=== PATIENT | male | born 1935 ===

== ENCOUNTER 2017-01-09 12:58 | Inpatient (IN) | payer MEDICARE, MEDICAID ==
[2017-01-09 12:59] VITALS: BMI 23.8
[2017-01-09 13:27] LABS: BASO # 0.1 K/uL (0.0-0.2); BASO % 0.7 % (0.0-2.0); EOS # 0.9 K/uL (0.0-0.7); EOS % 10.7 % (0.0-4.0); HEMATOCRIT 35.6 % (35.0-51.0); LYMPH # 1.9 K/uL (1.0-4.3); LYMPH % 22.2 % (20.0-40.0); MEAN CORPUSCULAR HEMOGLOBIN 26.3 pg (27.0-31.0); MEAN CORPUSCULAR HGB CONC 32.1 g/dL (33.0-37.0); MEAN PLATELET VOLUME 8.9 fL (7.2-11.7); MONO # 0.8 K/uL (0.0-0.8); MONO % 9.2 % (0.0-10.0); RED CELL DISTRIBUTION WIDTH 16.4 % (11.5-14.5); WHITE BLOOD COUNT 8.6 K/uL (4.8-10.8)
[2017-01-09 13:46] LABS: CHLORIDE 100 mmol/L (98-107); POTASSIUM 4.3 mmol/L (3.6-5.2); SODIUM 138 mmol/L (132-148)
[2017-01-09 13:48] LABS: ALB/GLOB RATIO 1.1 (1.0-2.1); ALKALINE PHOSPHATASE 96 U/L (38-126); AMYLASE 134 U/L (30-110); AST/SGOT 24 U/L (17-59); BILIRUBIN,TOTAL 0.6 mg/dL (0.2-1.3); BLOOD UREA NITROGEN 13 mg/dL (9-20); CARBON DIOXIDE 23 mmol/L (22-30); GFR AFRICAN-AMERICAN > 60; TOTAL PROTEIN 7.4 g/dL (6.3-8.3)
[2017-01-09 13:49] LABS: ALT/SGPT 37 U/L (21-72); CALCIUM 8.4 mg/dl (8.6-10.4); GLUCOSE,RANDOM 91 mg/dL (75-110)
--- NOTE | 2017-01-09 13:50 | C.PDOC ---
History Of Present Illness 81 y/o male, with PMHx of CVA, HTN, Hypercholesterolemia, is brought to the ED by EMS for evaluation of vague epigastric abdominal pain. HPI is limited at this time. Patient is a poor historian. No n/v/d, fever, chills, headache, weakness, numbness, or any other physical complaints at this time. Time Seen by Provider: 01/09/17 13:46 Chief Complaint (Nursing): Abdominal Pain History Per: Patient History/Exam Limitations: no limitations Onset/Duration Of Symptoms: Days Current Symptoms Are (Timing): Still Present Location Of Pain/Discomfort: Epigastric Radiation Of Pain To:: None Quality Of Discomfort: "Pain" Associated Symptoms: denies: Fever, Chills, Nausea, Vomiting, Diarrhea, Loss Of Appetite, Back Pain, Chest Pain, Constipation, Urinary Symptoms Exacerbating Factors: None Alleviating Factors: None Recent travel outside of the [place]: No Additional History Per: Patient Past Medical History Reviewed: Historical Data, Nursing Documentation, Vital Signs Vital Signs: Last Vital Signs Temp 97.5 F L 01/09/17 13:08 Pulse 69 01/09/17 16:12 Resp 20 01/09/17 16:12 BP 150/76 01/09/17 16:12 Pulse Ox 98 01/09/17 16:12 - Medical History PMH: Arthritis, CVA (Ischemic, 2 months ago.), Depression, HTN, Hypercholesterolemia, Hyperlipidemia, Seizures Denies: Chronic Kidney Disease Family History: States: No Known Family Hx - Social History Hx Alcohol Use: No Hx Substance Use: No - Immunization History Hx Tetanus Toxoid Vaccination: No Hx Influenza Vaccination: No Hx Pneumococcal Vaccination: No Review Of Systems Except As Marked, All Systems Reviewed And Found Negative. Constitutional: Negative for: Fever, Chills Cardiovascular: Negative for: Chest Pain, Palpitations Respiratory: Negative for: Cough, Shortness of Breath Gastrointestinal: Positive for: Abdominal Pain. Negative for: Nausea, Vomiting , Diarrhea, Constipation Genitourinary: Negative for: Dysuria, Frequency, Hematuria Skin: Negative for: Rash, Bruising Neurological: Negative for: Weakness, Numbness, Headache, Dizziness Physical Exam - Physical Exam Appears: Non-toxic, No Acute Distress Skin: Normal Color, Warm, Dry Head: Atraumatic, Normacephalic Eye(s): bilateral: EOMI, Other (pinpoint pupils) Oral Mucosa: Moist Neck: Normal ROM, Supple Cardiovascular: Rhythm Regular, No Murmur Respiratory: Normal Breath Sounds, No Rales, No Rhonchi, No Wheezing Gastrointestinal/Abdominal: Soft, No Tenderness, Distention, No Guarding, No Rebound, Other (obese abdomen) Extremity: Normal ROM Neurological/Psych: Oriented x3 (awake, alert), Normal Speech ED Course And Treatment - Laboratory Results Result Diagrams: 01/09/17 13:22 01/09/17 13:22 Lab Interpretation: Abnormal (lipase 420, amylase 134 H) ECG: Interpreted By Me ECG Rhythm: Sinus Rhythm ECG Interpretation: Normal Rate From EC O2 Sat by Pulse Oximetry: 100 (RA) Pulse Ox Interpretation: Normal - Radiology CXR: Interpreted by Me CXR Interpretation: Yes: No Acute Disease - Other Rad abd x 2 X-Ray: Interpreted by Me (normal stool/gas pattern) CT Abd/pelvis X-Ray: Read By Radiologist (no acute findings of pancreatitis on CT) Reevaluation Time: 16:33 Reassessment Condition: Improved (remains aphasic, though comfortable) - Physician Consult Information Outcome Of Conversation: 1630: d/w Dr. Cisneros- coverst pt's for Dr. Felicitas Kaye, ok to Obs, asks to consult Dr. Monk Medical Decision Making Medical Decision Making: mild pancreatitis of ? etiology- Unclear if h/o DM or hypertriglyceridemia conservative treatment and obs Disposition Doctor Will See Patient In The: Hospital Counseled Patient/Family Regarding: Studies Performed, Diagnosis - Disposition Disposition: HOSPITALIZED Disposition Time: 16:36 Condition: GOOD Forms: [facility] (Hungarian) - Clinical Impression Clinical Impression: Pancreatitis - Scribe Statement The provider has reviewed the documentation as recorded by the Scribe Vdiya Cam All medical record entries made by the Scribe were at my direction and personally dictated by me. I have reviewed the chart and agree that the record accurately reflects my personal performance of the history, physical exam, medical decision making, and the department course for this patient. I have also personally directed, reviewed, and agree with the discharge instructions and disposition.
[2017-01-09 14:34] VITALS: RESP 20
[2017-01-09 15:29] LABS: URINE BILIRUBIN NEGATIVE (NEGATIVE); URINE BLOOD NEGATIVE (NEGATIVE); URINE COLOR Straw (YELLOW); URINE GLUCOSE (UA) NORMAL (Normal); URINE KETONE NEGATIVE (NEGATIVE); URINE LEUKOCYTE ESTERASE NEG Leu/uL (Negative); URINE PROTEIN NEGATIVE (NEGATIVE); URINE UROBILINOGEN NORMAL mg/dL (0.2-1.0)
[2017-01-09] MEDS ORDERED: Iodixanol 320 MG/ML 100 ML BOTTLE IV ONE (15:38)
--- NOTE | 2017-01-09 16:24 | CT ---
PROCEDURE: CT Abdomen and Pelvis with contrast HISTORY: elev amylase/lipase, ? pancreatisis COMPARISON: None. TECHNIQUE: Contrast dose: 95 cc of Visipaque 320. Axial and reformatted coronal and sagittal CT images of the abdomen and pelvis were obtained after IV contrast administration. Radiation dose: Total exam DLP = 455.06 mGy-cm. This CT exam was performed using one or more of the following dose reduction techniques: Automated exposure control, adjustment of the mA and/or kV according to patient size, and/or use of iterative reconstruction technique. FINDINGS: LOWER THORAX: Unremarkable. LIVER: Mild diffuse low-attenuation of the liver suggestive of hepatic steatosis. The portal vein is patent. GALLBLADDER AND BILE DUCTS: Gallstone without CT evidence of acute cholecystitis. PANCREAS: Unremarkable. No gross lesion or ductal dilatation. No CT evidence of acute pancreatitis. SPLEEN: Unremarkable. ADRENALS: Unremarkable. No mass. KIDNEYS AND URETERS: Unremarkable. No hydronephrosis. No solid mass. VASCULATURE: Unremarkable. No aortic aneurysm. BOWEL: Unremarkable. No obstruction. No gross mural thickening. APPENDIX: No evidence of appendicitis. PERITONEUM: Unremarkable. No free fluid. No free air. LYMPH NODES: Unremarkable. No enlarged lymph nodes. BLADDER: Moderate urinary bladder wall thickening at the right anterior aspect of the bladder is noted. REPRODUCTIVE: Unremarkable. BONES: No acute fracture. OTHER FINDINGS: None. IMPRESSION: No CT evidence of pancreatitis. Gallstones without evidence of acute cholecystitis. Mild hepatic steatosis. Bladder wall thickening noted at the anterior right aspect of the bladder. Further assessment is recommended to exclude infiltrative bladder neoplasm.
--- NOTE | 2017-01-09 17:21 | RAD ---
PROCEDURE: Radiographs of the chest and abdomen (obstructive series) HISTORY: epigastric COMPARISON: CT abdomen and pelvis contrast performed 01/09/17 TECHNIQUE: AP radiograph of the chest, with upright and supine radiographs of the abdomen. FINDINGS: CHEST: Heart size appears top normal. No focal consolidation, significant pleural effusion, or definite pneumothorax identified.Please note that chest x-ray has limited sensitivity for the detection of pulmonary masses. ABDOMEN AND PELVIS: Nonobstructive bowel gas pattern. No definite free air. Degenerative changes of the spine. IMPRESSION: No acute findings.
[2017-01-09] MEDS: Sodium Chloride 0.45% 1,000 ML IV SCH (19:46)
[2017-01-09] MEDS: (Novolin R) Insulin Human Regular 100 units/ml vial SC SCH (23:47)
--- NOTE | 2017-01-09 23:59 | CP.PCM.HP ---
History of Present Illness - History of Present Illness History of Present Illness: COMPREHENSIVE HISTORY & PHYSICAL EXAM HPI PT. WAS BROUGHT TO ER WITH VAGUE COMPLAINTS OF GEN. ABD PAIN. W/U IN ER SHOWED PANCREATITIS WITH NEGATIVE IMAGINING . PT ALSO HAS N/V FOR 2 DAYS PAST HIST. HTN/CVA/TIA/NEG IV LEXISCAN MYOVIEW PERSONAL HIST: Smoking. N Alcohol. N Allergy N Travel_- . FAMILY HIST : ROS : Constitutional: Negative for weight change, chills, night sweats, fatigue and usage of assist device. Eyes: Negative for redness, swelling, itching, discharge, vision changes, blurry vision, double vision, glaucoma, cataracts, Ears: Negative for hearing loss, ringing, , tinnitus, vertigo Nose: Negative for rhinorrhea, stuffiness, sniffing, itching, postnasal drip, discoloration, nasal congestion and epistaxis. Throat: Negative for throat clearing, sore throat, hoarseness, difficulty swallowing and difficulty speaking. Respiratory: Negative for cough, , sputum production, chest tightness, wheezing, pleuritic chest pain ,daytime somnolence, chronic cough, hemoptysis, snoring at night, Cardiovascular: Negative for chest pain, palpitations, orthopnea, PND, Edema of legs, leg cramps, angina, claudication, , irregular heartbeat, Neurology: Negative for irritability, muscle weakness, numbness and tingling, seizures, tremors, migraines, slurred speech, syncope, memory loss, mood changes , recurrent headaches Gastrointestinal: N/V A/W CONSTIPATION AND GEN ABD PAIN Genitourinary: Negative for frequent urination, hematuria, discharge, incontinence, urinary retention, frequent UTI, Psychiatric: Negative for depression, anxiety/panic, suicidal tendencies, Musculoskeletal: Negative for swollen joints, back pain, , neck pain, morning stiffness of joints, . Skin: Negative for rash, ulcers, itching, dry skin and pigmented lesions. P/E: Constitutional: Appears stated age and in no apparent distress. Head: Normocephalic. Ears: External ear canals patent without inflammation. Tympanic membranes intact with normal light reflex and landmark. Eyes: Pupils are central, bilaterally equal, symmetrical and reacts to light with normal movements and no icterus or pallor. Nose: External nares are patent. Mucosa is pink Mouth-Throat: Good general appearance and condition. No post-pharyngeal/oropharyngeal erythema and tonsillar hypertrophy. Good dental hygiene. Neck-Lymphatic: Neck is supple with normal ROM, no thyromegaly, lymph nodes or masses. JVD is normal with no carotid bruit. Lungs: Clear to percussion and auscultation with bilateral normal air entry. Cardiovascular: S1 and S2 are normal with no murmurs, gallops and rub. GI Exam: No hepatomegaly. Abdomen is soft and tender. No Organomegaly , masses or hernias are evident and bowel sounds are normal and active. Neurology: Higher function and all cranial nerves intact, with no gross motor or sensory deficit. Superficial and deep reflexes are normal with downwards planters. No cerebellar deficit with normal gait. Musculoskeletal: No tender spots with normal curvature of the spine with no swelling or restricted ROM of the small and large joints. Extremities: Homans sign absent. Intact pulses with no pitting edema, calf tenderness or skin color changes. Skin: No rash, eruptions or abnormal skin pigmentation LAB/RADIOLOGY: ASSESMENT : ACUTE PANCREATIS HTN TIA/CVA PLAN: SEE ORDERS Present on Admission - Present on Admission Any Indicators Present on Admission: No Past Patient History - Past Medical History & Family History Past Medical History?: Yes - Past Social History Smoking Status: Never Smoked - CARDIAC Hx Hypercholesterolemia: Yes Hx Hypertension: Yes Other/Comment: CVA 2 months ago - PULMONARY Hx Respiratory Disorders: No - NEUROLOGICAL Hx Seizures: Yes - HEENT Hx HEENT Problems: No - RENAL Hx Chronic Kidney Disease: No - ENDOCRINE/METABOLIC Hx Endocrine Disorders: Yes Hx Diabetes Mellitus Type 1: Yes - HEMATOLOGICAL/ONCOLOGICAL Hx Blood Disorders: No - INTEGUMENTARY Other/Comment: Old 50-60 Yrs Old LFA Small Area Soft Skin. - MUSCULOSKELETAL/RHEUMATOLOGICAL Hx Arthritis: Yes Hx Falls: Yes - GASTROINTESTINAL Hx Gastrointestinal Disorders: No - GENITOURINARY/GYNECOLOGICAL Hx Urinary Tract Infection: Yes - PSYCHIATRIC Hx Depression: Yes Hx Substance Use: No - SURGICAL HISTORY Hx Surgeries: Yes Other/Comment: Vasectomy 1968 - ANESTHESIA Hx Anesthesia: Yes Hx Anesthesia Reactions: No Hx Malignant Hyperthermia: No Has any member of the family had a problem w/ anesthesia?: No Meds Allergies/Adverse Reactions: Allergies Allergy/AdvReac Type Severity Reaction Status Date / Time camphor Allergy Verified 01/08/16 14:20 menthol Allergy Verified 01/08/16 14:20 Results - Vital Signs Recent Vital Signs: Last Vital Signs Temp 97.9 F 01/09/17 19:00 Pulse 69 01/09/17 22:35 Resp 20 01/09/17 19:00 BP 176/81 H 01/09/17 22:35 Pulse Ox 99 01/09/17 19:00 - Labs Result Diagrams: 01/10/17 08:29 01/10/17 08:29 Labs: Laboratory Results - last 24 hr 01/09/17 22:44 POC Glucose (mg/dL) 123 H
[2017-01-10] MEDS: Sodium Chloride 0.45% 1,000 ML IV SCH ×3 (05:06→21:07)
[2017-01-10] MEDS: (Novolin R) Insulin Human Regular 100 units/ml vial SC SCH ×3 (08:08→17:14)
[2017-01-10 08:43] LABS: HEMATOCRIT 37.1 % (35.0-51.0); MEAN CELL VOLUME 81.5 fL (80.0-94.0); MEAN CORPUSCULAR HEMOGLOBIN 26.6 pg (27.0-31.0); MEAN CORPUSCULAR HGB CONC 32.7 g/dL (33.0-37.0); MEAN PLATELET VOLUME 9.3 fL (7.2-11.7); RED CELL DISTRIBUTION WIDTH 16.2 % (11.5-14.5); WHITE BLOOD COUNT 7.8 K/uL (4.8-10.8)
[2017-01-10 09:01] LABS: CHLORIDE 102 mmol/L (98-107); SODIUM 138 mmol/L (132-148)
[2017-01-10 09:02] LABS: POTASSIUM 4.1 mmol/L (3.6-5.2)
[2017-01-10 09:04] LABS: AMYLASE 111 U/L (30-110); CARBON DIOXIDE 26 mmol/L (22-30); TOTAL PROTEIN 7.5 g/dL (6.3-8.3)
[2017-01-10 09:05] LABS: ALKALINE PHOSPHATASE 105 U/L (38-126); ALT/SGPT 40 U/L (21-72); AST/SGOT 28 U/L (17-59); BILIRUBIN,TOTAL 0.7 mg/dL (0.2-1.3); BLOOD UREA NITROGEN 12 mg/dL (9-20); CALCIUM 8.8 mg/dl (8.6-10.4); GFR AFRICAN-AMERICAN > 60; GLUCOSE,RANDOM 119 mg/dL (75-110)
--- NOTE | 2017-01-10 09:21 | CP.PCM.CON ---
<Chasity Cam - Last Filed: 01/10/17 10:48> History of Present Illness - History of Present Illness History of Present Illness: PGY4 GI Initial Consult Note Godfrey Cam is a 81M w/ hx of CVA, early dementia, HTN who presented to the ED with complaints of vague abd pain. Pt had an abd CT and did not reveal anything sig, other than some retained stool in the colon. Pt had an elevated lipase and amylase on admission and so was admitted for suspected pancreatitis. Pt denies nay epigastric pain. His pain was located in [place] B/L. He described his pain as crampy. Denies any aggravating or alleviating factors. Stated his pain was intermittent and was non-radiating. He graded it an 8 out of 10. He states that his last BM was 2-3 days go. He denies any melena, BRBPR, nausea, vomiting or hematemsesis. Pt states that his pain improved overnight. Currently denies nay pain. He states that it was likely "gas." PMHx: Arthritis, CVA (Ischemic, 2 months ago.), Depression, Hypertension, Hypercholesterolemia, Hyperlipidemia, and Seizures PSHx: Denies Social: denies etoh, smoking or recreational drug use Family hx; denies any hx of colon or other ca Endo: states that he had a colonoscopy a few years ago, but cannot recall the results or the physcian performing the procedure Past Patient History - Past Medical History & Family History Past Medical History?: Yes - Past Social History Smoking Status: Never Smoked - CARDIAC Hx Hypercholesterolemia: Yes Hx Hypertension: Yes Other/Comment: CVA 2 months ago - PULMONARY Hx Respiratory Disorders: No - NEUROLOGICAL Hx Seizures: Yes - HEENT Hx HEENT Problems: No - RENAL Hx Chronic Kidney Disease: No - ENDOCRINE/METABOLIC Hx Endocrine Disorders: Yes Hx Diabetes Mellitus Type 1: Yes - HEMATOLOGICAL/ONCOLOGICAL Hx Blood Disorders: No - INTEGUMENTARY Other/Comment: Old 50-60 Yrs Old LFA Small Area Soft Skin. - MUSCULOSKELETAL/RHEUMATOLOGICAL Hx Arthritis: Yes Hx Falls: Yes - GASTROINTESTINAL Hx Gastrointestinal Disorders: No - GENITOURINARY/GYNECOLOGICAL Hx Urinary Tract Infection: Yes - PSYCHIATRIC Hx Depression: Yes Hx Substance Use: No - SURGICAL HISTORY Hx Surgeries: Yes Other/Comment: Vasectomy 1968 - ANESTHESIA Hx Anesthesia: Yes Hx Anesthesia Reactions: No Hx Malignant Hyperthermia: No Has any member of the family had a problem w/ anesthesia?: No Meds Allergies/Adverse Reactions: Allergies Allergy/AdvReac Type Severity Reaction Status Date / Time camphor Allergy Verified 01/08/16 14:20 menthol Allergy Verified 01/08/16 14:20 - Medications Medications: Current Medications Amlodipine Besylate (Norvasc) 10 mg PO DAILY [facility] Last Admin: 01/09/17 19:35 Dose: 10 mg Heparin Sodium (Porcine) (Heparin) 5,000 units SC Q12H [facility] Last Admin: 01/09/17 22:38 Dose: 5,000 units Sodium Chloride (Sodium Chloride 0.45%) 1,000 mls @ 110 mls/hr IV .Q9H6M [facility] Last Admin: 01/10/17 05:06 Dose: 110 mls/hr Insulin Human Regular (Novolin R) 0 unit SC ACHS [facility] PRN Reason: Protocol Last Admin: 01/10/17 08:08 Dose: Not Given Physical Exam - Constitutional Appears: Well, No Acute Distress - Head Exam Head Exam: ATRAUMATIC, NORMAL INSPECTION, NORMOCEPHALIC - Eye Exam Eye Exam: Normal appearance - ENT Exam ENT Exam: Mucous Membranes Moist, Normal Exam - Neck Exam Neck exam: Positive for: Normal Inspection - Respiratory Exam Respiratory Exam: Clear to Auscultation Bilateral, NORMAL BREATHING PATTERN. absent: Rales, Rhonchi, Wheezes - Cardiovascular Exam Cardiovascular Exam: REGULAR RHYTHM, +S1, +S2 - GI/Abdominal Exam GI & Abdominal Exam: Normal Bowel Sounds, Soft. absent: Distended, Firm, Guarding, Organomegaly, Pulsatile Mass, Rebound, Rigid - Extremities Exam Extremities exam: Positive for: normal inspection. Negative for: joint swelling , pedal edema - Neurological Exam Neurological exam: Alert, CN II-XII Intact Additional comments: only oriented to persona nd place, but not time - Psychiatric Exam Psychiatric exam: Normal Affect, Normal Mood - Skin Skin Exam: Dry, Intact, Normal Color, Warm Results - Vital Signs Recent Vital Signs: Last Vital Signs Temp 97.7 F 01/10/17 08:00 Pulse 65 01/10/17 08:00 Resp 20 01/10/17 08:00 BP 135/74 01/10/17 08:00 Pulse Ox 98 01/10/17 08:00 - Labs Result Diagrams: 01/10/17 08:29 08/09/17 08:29 Labs: Laboratory Results - last 24 hr 01/09/17 01/10/17 01/10/17 22:44 07:53 08:29 WBC 7.8 RBC 4.55 Hgb 12.1 Hct 37.1 MCV 81.5 MCH 26.6 L MCHC 32.7 L RDW 16.2 H Plt Count 230 MPV 9.3 Sodium Potassium Chloride Carbon Dioxide Anion Gap BUN Creatinine Est GFR ( Amer) Est GFR (Non-Af Amer) POC Glucose (mg/dL) 123 H 105 Random Glucose Calcium Total Bilirubin AST ALT Alkaline Phosphatase Total Protein Albumin Globulin Albumin/Globulin Ratio Amylase Lipase 01/10/17 08:29 WBC RBC Hgb Hct MCV MCH MCHC RDW Plt Count MPV Sodium 138 Potassium 4.1 Chloride 102 Carbon Dioxide 26 Anion Gap 15 BUN 12 Creatinine 0.9 Est GFR ( Amer) > 60 Est GFR (Non-Af Amer) > 60 POC Glucose (mg/dL) Random Glucose 119 H Calcium 8.8 Total Bilirubin 0.7 AST 28 ALT 40 Alkaline Phosphatase 105 Total Protein 7.5 Albumin 3.7 Globulin 3.7 Albumin/Globulin Ratio 1.0 Amylase 111 H Lipase 315 H Assessment & Plan - Assessment and Plan (Free Text) Assessment: This a 81M w/ hx of CVA, HTN, HL who presented with abd pain. Etiology is likely constipation vs dyspepsia 1. Constipation 2. Bloating 3. hx of recent CVA Plan: -start miralax BID -continue supportive care -Pt unlikely to have pancreatitis based on imaging and clinic findings -Would advance diet as tolerated -minimize narcotics -No acute GI intervention at this time -Reviewed CT abd by myself and with Dr. Whiting, no acute finding other than mild/ moderate fecal retention in colon D/W Dr. Whiting <Kd Whiting - Last Filed: 01/10/17 13:00> Meds - Medications Medications: Current Medications Amlodipine Besylate (Norvasc) 10 mg PO DAILY [facility] Last Admin: 01/10/17 10:16 Dose: 10 mg Heparin Sodium (Porcine) (Heparin) 5,000 units SC Q12H [facility] Last Admin: 01/10/17 10:16 Dose: 5,000 units Sodium Chloride (Sodium Chloride 0.45%) 1,000 mls @ 110 mls/hr IV .Q9H6M [facility] Last Admin: 01/10/17 05:06 Dose: 110 mls/hr Insulin Human Regular (Novolin R) 0 unit SC ACHS [facility] PRN Reason: Protocol Last Admin: 01/10/17 11:51 Dose: 2 unit Polyethylene Glycol (Miralax) 17 gm PO DAILY [facility] Last Admin: 01/10/17 11:51 Dose: 17 gm Sennosides (Senokot Tab) 8.6 mg PO DAILY [facility] Last Admin: 01/10/17 11:53 Dose: 8.6 mg Results - Vital Signs Recent Vital Signs: Last Vital Signs Temp 97.7 F 01/10/17 08:00 Pulse 65 01/10/17 08:00 Resp 20 01/10/17 08:00 BP 135/74 01/10/17 08:00 Pulse Ox 98 01/10/17 08:00 - Labs Result Diagrams: 01/10/17 08:29 01/10/17 08:29 Labs: Laboratory Results - last 24 hr 01/09/17 01/10/17 01/10/17 22:44 07:53 08:29 WBC 7.8 RBC 4.55 Hgb 12.1 Hct 37.1 MCV 81.5 MCH 26.6 L MCHC 32.7 L RDW 16.2 H Plt Count 230 MPV 9.3 Sodium Potassium Chloride Carbon Dioxide Anion Gap BUN Creatinine Est GFR ( Amer) Est GFR (Non-Af Amer) POC Glucose (mg/dL) 123 H 105 Random Glucose Calcium Total Bilirubin AST ALT Alkaline Phosphatase Total Protein Albumin Globulin Albumin/Globulin Ratio Amylase Lipase 01/10/17 01/10/17 08:29 11:09 WBC RBC Hgb Hct MCV MCH MCHC RDW Plt Count MPV Sodium 138 Potassium 4.1 Chloride 102 Carbon Dioxide 26 Anion Gap 15 BUN 12 Creatinine 0.9 Est GFR ( Amer) > 60 Est GFR (Non-Af Amer) > 60 POC Glucose (mg/dL) 159 H Random Glucose 119 H Calcium 8.8 Total Bilirubin 0.7 AST 28 ALT 40 Alkaline Phosphatase 105 Total Protein 7.5 Albumin 3.7 Globulin 3.7 Albumin/Globulin Ratio 1.0 Amylase 111 H Lipase 315 H Attending/Attestation - Attestation I have personally seen and examined this patient.: Yes I have fully participated in the care of the patient.: Yes I have reviewed all pertinent clinical information: Yes Notes (Text): 01/10/17 12:59 81 year old male admitted with abdominal pain, bloating and constipatoin, improved. 1. Abdominal pain 2. Bloating 3. Constipation Plan: -recommend bowel regimen with miralax -symptoms improved -ct unremarkable, reviewed -no evidence of pancreatitis on imaging -mildly elevated lipase not consistent with pancreatitis -diet as tolerated -will sign off
[2017-01-10] MEDS: POLYETHYLENE GLYCOL 3350 17 GM/Dose PACKET PO SCH (11:51)
--- NOTE | 2017-01-10 13:48 | CP.PCM.PN ---
Subjective - Date & Time of Evaluation Date of Evaluation: 01/10/17 Time of Evaluation: 13:46 - Subjective Subjective: . CHIEF COMPLAINTS TODAY : ABD PAIN , LESS ROS. HEENT : N. Resp : No cough, wheezing ,pleuritic CP ,or hemoptysis Cardio : No anginal CP, PND, orthopnea, palpitation GI : POS abd.pain, n/v ,diarrhea NO GI bleeding . [employer] : No headache, vertigo, focal deficit. Musculoskel : No joint swelling , Derm : No rash Psych : Normal affect. Ext : No swelling ,calf pain PE. Pt. is alert awake in no distress. V.S As noted in the chart Head ,ear nose,throat and eyes : Normal. Neck : Supple with normal carotids. Lungs: Clear air entry. Heart : S1 & S2 normal with S4. No murmur. Abd : Soft non tender with normal bowel sounds. Neuro : Moves all ext. with no localized deficit. Ext : No edema with intact pulses.Non tender calves Derm : No rashes or decubitus ulcer. LABS/RADIOLOGY: ASSESSMENT/PLAN : GI EVAL NOTED CHECK LABS Objective - Vital Signs/Intake and Output Vital Signs (last 24 hours): Temp Pulse Resp BP Pulse Ox 97.7 F 65 20 135/74 98 01/10/17 08:00 01/10/17 08:00 01/10/17 08:00 01/10/17 08:00 01/10/17 08:00 Intake and Output: 01/10/17 01/10/17 11:59 23:59 Intake Total 930 Output Total 1000 Balance -70 - Medications Medications: Current Medications Amlodipine Besylate (Norvasc) 10 mg PO DAILY [facility] Last Admin: 01/10/17 10:16 Dose: 10 mg Heparin Sodium (Porcine) (Heparin) 5,000 units SC Q12H [facility] Last Admin: 01/10/17 10:16 Dose: 5,000 units Sodium Chloride (Sodium Chloride 0.45%) 1,000 mls @ 110 mls/hr IV .Q9H6M [facility] Last Admin: 01/10/17 13:32 Dose: Not Given Insulin Human Regular (Novolin R) 0 unit SC ACHS [facility] PRN Reason: Protocol Last Admin: 01/10/17 11:51 Dose: 2 unit Polyethylene Glycol (Miralax) 17 gm PO DAILY [facility] Last Admin: 01/10/17 11:51 Dose: 17 gm Sennosides (Senokot Tab) 8.6 mg PO DAILY [facility] Last Admin: 01/10/17 11:53 Dose: 8.6 mg - Labs Labs: 01/10/17 08:29 01/10/17 08:29
--- NOTE | 2017-01-10 19:23 | CARD ---
APPROVED REPORT EKG Measurement Heart [id number] [place] [id number] [id number] <Conclusion> Normal sinus rhythm Normal ECG
[2017-01-11] MEDS: Sodium Chloride 0.45% 1,000 ML IV SCH ×3 (06:24→17:20)
[2017-01-11 07:28] LABS: BASO % 0.6 % (0.0-2.0); EOS # 0.8 K/uL (0.0-0.7); EOS % 11.7 % (0.0-4.0); HEMATOCRIT 37.6 % (35.0-51.0); LYMPH # 1.7 K/uL (1.0-4.3); LYMPH % 23.6 % (20.0-40.0); MEAN CELL VOLUME 81.4 fL (80.0-94.0); MEAN CORPUSCULAR HEMOGLOBIN 27.1 pg (27.0-31.0); MEAN CORPUSCULAR HGB CONC 33.4 g/dL (33.0-37.0); MEAN PLATELET VOLUME 9.1 fL (7.2-11.7); MONO # 0.5 K/uL (0.0-0.8); MONO % 7.7 % (0.0-10.0); RED CELL DISTRIBUTION WIDTH 15.8 % (11.5-14.5)
[2017-01-11] MEDS: (Novolin R) Insulin Human Regular 100 units/ml vial SC SCH ×4 (07:30→22:00)
[2017-01-11 08:22] LABS: ALKALINE PHOSPHATASE 109 U/L (38-126); ALT/SGPT 33 U/L (21-72); AST/SGOT 30 U/L (17-59); BILIRUBIN,TOTAL 0.7 mg/dL (0.2-1.3); BLOOD UREA NITROGEN 11 mg/dL (9-20); CALCIUM 8.7 mg/dl (8.6-10.4); CARBON DIOXIDE 25 mmol/L (22-30); CHLORIDE 102 mmol/L (98-107); GFR AFRICAN-AMERICAN > 60; GLUCOSE,RANDOM 132 mg/dL (75-110); POTASSIUM 4.2 mmol/L (3.6-5.2); SODIUM 141 mmol/L (132-148); TOTAL PROTEIN 7.4 g/dL (6.3-8.3)
[2017-01-11] MEDS: POLYETHYLENE GLYCOL 3350 17 GM/Dose PACKET PO SCH (09:45)
--- NOTE | 2017-01-11 13:48 | CP.PCM.PN ---
Subjective - Date & Time of Evaluation Date of Evaluation: 01/11/17 Time of Evaluation: 13:48 - Subjective Subjective: CHIEF COMPLAINTS TODAY : ABD PAIN , LESS ROS. HEENT : N. Resp : No cough, wheezing ,pleuritic CP ,or hemoptysis Cardio : No anginal CP, PND, orthopnea, palpitation GI : POS abd.pain, n/v ,diarrhea NO GI bleeding . 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 Musculoskel : No joint swelling , Derm : No rash Psych : Normal affect. Ext : No swelling ,calf pain PE. Pt. is alert awake in no distress. V.S As noted in the chart Head ,ear nose,throat and eyes : Normal. Neck : Supple with normal carotids. Lungs: Clear air entry. Heart : S1 & S2 normal with S4. No murmur. Abd : Soft non tender with normal bowel sounds. Neuro : Moves all ext. with no localized deficit. Ext : No edema with intact pulses.Non tender calves Derm : No rashes or decubitus ulcer. LABS/RADIOLOGY: LIPASE STILL ELEVATED ASSESSMENT/PLAN : GI EVAL NOTED LIUDMILA Objective - Vital Signs/Intake and Output Vital Signs (last 24 hours): Temp Pulse Resp BP Pulse Ox 98.7 F 78 20 160/101 H 99 01/11/17 08:41 01/11/17 12:11 01/11/17 08:41 01/11/17 12:11 01/11/17 08:41 Intake and Output: 01/11/17 01/11/17 11:59 23:59 Intake Total 1120 Output Total 1200 Balance -80 - Medications Medications: Current Medications Amlodipine Besylate (Norvasc) 10 mg PO DAILY [facility] Last Admin: 01/11/17 10:22 Dose: 10 mg Heparin Sodium (Porcine) (Heparin) 5,000 units SC Q12H [facility] Last Admin: 01/11/17 09:45 Dose: 5,000 units Sodium Chloride (Sodium Chloride 0.45%) 1,000 mls @ 110 mls/hr IV .Q9H6M [facility] Last Admin: 01/11/17 07:40 Dose: 110 mls/hr Insulin Human Regular (Novolin R) 0 unit SC ACHS [facility] PRN Reason: Protocol Last Admin: 01/11/17 11:30 Dose: 2 unit Polyethylene Glycol (Miralax) 17 gm PO DAILY [facility] Last Admin: 01/11/17 09:45 Dose: 17 gm Sennosides (Senokot Tab) 8.6 mg PO DAILY [facility] Last Admin: 01/11/17 09:48 Dose: 8.6 mg - Labs Labs: 01/11/17 07:14 01/11/17 07:14
[2017-01-12] MEDS: Sodium Chloride 0.45% 1,000 ML IV SCH ×6 (03:11→21:20)
[2017-01-12] MEDS: (Novolin R) Insulin Human Regular 100 units/ml vial SC SCH ×4 (07:46→21:19)
[2017-01-12] MEDS: POLYETHYLENE GLYCOL 3350 17 GM/Dose PACKET PO SCH (09:29)
--- NOTE | 2017-01-12 13:22 | CP.PCM.PN ---
Subjective - Date & Time of Evaluation Date of Evaluation: 01/12/17 Time of Evaluation: 13:21 - Subjective Subjective: CHIEF COMPLAINTS TODAY : PT. FAILED PT , UNSTEADY ON GAIT ROS. HEENT : N. Resp : No cough, wheezing ,pleuritic CP ,or hemoptysis Cardio : No anginal CP, PND, orthopnea, palpitation GI : POS abd.pain, n/v ,diarrhea NO GI bleeding . 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 Musculoskel : No joint swelling , Derm : No rash Psych : Normal affect. Ext : No swelling ,calf pain PE. Pt. is alert awake in no distress. V.S As noted in the chart Head ,ear nose,throat and eyes : Normal. Neck : Supple with normal carotids. Lungs: Clear air entry. Heart : S1 & S2 normal with S4. No murmur. Abd : Soft non tender with normal bowel sounds. Neuro : Moves all ext. with no localized deficit. Ext : No edema with intact pulses.Non tender calves Derm : No rashes or decubitus ulcer. LABS/RADIOLOGY: LIPASE STILL ELEVATED ASSESSMENT/PLAN : LIUDMILA FOR PT Objective - Vital Signs/Intake and Output Vital Signs (last 24 hours): Temp Pulse Resp BP Pulse Ox 97.8 F 71 20 154/74 H 98 01/12/17 08:00 01/12/17 08:00 01/12/17 08:00 01/12/17 08:00 01/12/17 08:00 Intake and Output: 01/12/17 01/12/17 11:59 23:59 Intake Total 980 Balance 980 - Medications Medications: Current Medications Amlodipine Besylate (Norvasc) 10 mg PO DAILY [facility] Last Admin: 01/12/17 09:30 Dose: 10 mg Heparin Sodium (Porcine) (Heparin) 5,000 units SC Q12H [facility] Last Admin: 01/12/17 09:30 Dose: 5,000 units Sodium Chloride (Sodium Chloride 0.45%) 1,000 mls @ 110 mls/hr IV .Q9H6M [facility] Last Admin: 01/12/17 08:06 Dose: 110 mls/hr Insulin Human Regular (Novolin R) 0 unit SC ACHS [facility] PRN Reason: Protocol Last Admin: 01/12/17 07:46 Dose: Not Given Polyethylene Glycol (Miralax) 17 gm PO DAILY [facility] Last Admin: 01/12/17 09:29 Dose: Not Given Sennosides (Senokot Tab) 8.6 mg PO DAILY [facility] Last Admin: 01/12/17 09:29 Dose: Not Given - Labs Labs: 01/11/17 07:14 01/11/17 07:14
[2017-01-13] MEDS: (Novolin R) Insulin Human Regular 100 units/ml vial SC SCH ×2 (08:02→12:17)
--- NOTE | 2017-01-13 09:36 | CP.PCM.PN ---
Subjective - Date & Time of Evaluation Date of Evaluation: 01/13/17 Time of Evaluation: 09:36 - Subjective Subjective: PT D/C TO [facility] THIS AFTERNOON. WILL BE UNDER THE SERVICE OF DR. ENGEL WHILE THERE. SW TO ARRANGE TRANSPORTATION THERE. NO FURTHER ORDERS. Objective - Vital Signs/Intake and Output Vital Signs (last 24 hours): Temp Pulse Resp BP Pulse Ox 97.8 F 73 20 122/69 98 01/13/17 01:32 01/13/17 01:32 01/13/17 01:32 01/13/17 01:32 01/13/17 01:32 Intake and Output: 01/13/17 01/13/17 06:59 18:59 Intake Total 2420 Output Total 1100 Balance 1320 - Medications Medications: Current Medications Amlodipine Besylate (Norvasc) 10 mg PO DAILY [facility] Last Admin: 01/12/17 09:30 Dose: 10 mg Insulin Human Regular (Novolin R) 0 unit SC ACHS [facility] PRN Reason: Protocol Last Admin: 01/13/17 08:02 Dose: Not Given Polyethylene Glycol (Miralax) 17 gm PO DAILY [facility] Last Admin: 01/12/17 09:29 Dose: Not Given Sennosides (Senokot Tab) 8.6 mg PO DAILY [facility] Last Admin: 01/12/17 09:29 Dose: Not Given - Labs Labs: 01/11/17 07:14 01/11/17 07:14
[2017-01-13] MEDS: POLYETHYLENE GLYCOL 3350 17 GM/Dose PACKET PO SCH (09:37)
[2017-01-13 11:53] VITALS: BP 120/70; PULSE 72; TEMP 98; O2SAT 99
--- NOTE | 2017-01-13 13:33 | CP.PCM.DIS ---
Provider - Provider Date of Admission: 01/10/17 16:46 Attending physician: Emile Cisneros MD Time Spent in preparation of Discharge (in minutes): 30 Hospital Course - Lab Results Lab Results: Most Recent Lab Values WBC 7.0 K/uL (4.8-10.8) 01/11/17 07:14 RBC 4.62 Mil/uL (4.40-5.90) 01/11/17 07:14 Hgb 12.5 g/dL (12.0-18.0) 01/11/17 07:14 Hct 37.6 % (35.0-51.0) 01/11/17 07:14 MCV 81.4 fL (80.0-94.0) 01/11/17 07:14 MCH 27.1 pg (27.0-31.0) 01/11/17 07:14 MCHC 33.4 g/dL (33.0-37.0) 01/11/17 07:14 RDW 15.8 % (11.5-14.5) H 01/11/17 07:14 Plt Count 246 K/uL (130-400) 01/11/17 07:14 MPV 9.1 fL (7.2-11.7) 01/11/17 07:14 Neut % (Auto) 56.4 % (50.0-75.0) 01/11/17 07:14 Lymph % (Auto) 23.6 % (20.0-40.0) 01/11/17 07:14 [place] % (Auto) 7.7 % (0.0-10.0) 01/11/17 07:14 Eos % (Auto) 11.7 % (0.0-4.0) H 01/11/17 07:14 Baso % (Auto) 0.6 % (0.0-2.0) 01/11/17 07:14 Neut # 3.9 K/uL (1.8-7.0) 01/11/17 07:14 Lymph # 1.7 K/uL (1.0-4.3) 01/11/17 07:14 [place] # 0.5 K/uL (0.0-0.8) 01/11/17 07:14 Eos # 0.8 K/uL (0.0-0.7) H 01/11/17 07:14 Baso # 0.0 K/uL (0.0-0.2) 01/11/17 07:14 Sodium 141 mmol/L (132-148) 01/11/17 07:14 Potassium 4.2 mmol/L (3.6-5.2) 01/11/17 07:14 Chloride 102 mmol/L (98-107) 01/11/17 07:14 Carbon Dioxide 25 mmol/L (22-30) 01/11/17 07:14 Anion Gap 18 (10-20) 01/11/17 07:14 BUN 11 mg/dL (9-20) 01/11/17 07:14 Creatinine 1.0 MG/DL (0.8-1.5) 01/11/17 07:14 Est GFR ( Amer) > 60 01/11/17 07:14 Est GFR (Non-Af Amer) > 60 01/11/17 07:14 POC Glucose (mg/dL) 154 mg/dL (65-110) H 01/13/17 11:18 Random Glucose 132 mg/dL (75-110) H 01/11/17 07:14 Calcium 8.7 mg/dl (8.6-10.4) 01/11/17 07:14 Total Bilirubin 0.7 mg/dL (0.2-1.3) 01/11/17 07:14 AST 30 U/L (17-59) 01/11/17 07:14 ALT 33 U/L (21-72) 01/11/17 07:14 Alkaline Phosphatase 109 U/L (38-126) 01/11/17 07:14 Troponin I < 0.0120 ng/mL (0.00-0.120) 01/09/17 13:22 NT-Pro-B Natriuret Pep 396 pg/mL (0-900) 01/09/17 13:22 Total Protein 7.4 g/dL (6.3-8.3) 01/11/17 07:14 Albumin 3.7 g/dL (3.5-5.0) 01/11/17 07:14 Globulin 3.7 gm/dL (2.2-3.9) 01/11/17 07:14 Albumin/Globulin Ratio 1.0 (1.0-2.1) 01/11/17 07:14 Amylase 111 U/L (30-110) H 01/10/17 08:29 Lipase 314 U/L (23-300) H 01/11/17 07:14 Urine Color Straw (YELLOW) 01/09/17 15:17 Urine Clarity Clear (Clear) 01/09/17 15:17 Urine pH 6.0 (5.0-8.0) 01/09/17 15:17 Ur Specific [place] 1.004 (1.003-1.030) 01/09/17 15:17 Urine Protein Negative mg/dL (NEGATIVE) 01/09/17 15:17 Urine Glucose (UA) Normal mg/dL (Normal) 01/09/17 15:17 Urine Ketones Negative mg/dL (NEGATIVE) 01/09/17 15:17 Urine Blood Negative (NEGATIVE) 01/09/17 15:17 Urine Nitrate Negative (NEGATIVE) 01/09/17 15:17 Urine Bilirubin Negative (NEGATIVE) 01/09/17 15:17 Urine Urobilinogen Normal mg/dL (0.2-1.0) 01/09/17 15:17 Ur Leukocyte Esterase Neg Yen/uL (Negative) 01/09/17 15:17 Urine Opiates Screen Negative (NEGATIVE) 01/09/17 15:17 Urine Methadone Screen Negative (NEGATIVE) 01/09/17 15:17 Ur Barbiturates Screen Negative (NEGATIVE) 01/09/17 15:17 Ur Phencyclidine Scrn Negative (NEGATIVE) 01/09/17 15:17 Ur Amphetamines Screen Negative (NEGATIVE) 01/09/17 15:17 U Benzodiazepines Scrn Negative (NEGATIVE) 01/09/17 15:17 U Oth Cocaine Metabols Negative (NEGATIVE) 01/09/17 15:17 U Cannabinoids Screen Negative (NEGATIVE) 01/09/17 15:17 - Hospital Course Hospital Course: PT. WAS BROUGHT TO ER WITH VAGUE COMPLAINTS OF GEN. ABD PAIN. W/U IN ER SHOWED PANCREATITIS WITH NEGATIVE IMAGINING . PT ALSO HAS N/V FOR 2 DAYS PAST HIST. HTN/CVA/TIA/NEG IV [facility] WAS CONSULTED . THEY R/OUT PANCREATITIS PT NEXT DAY INPROVED PT. FAILED PT AND WAS TRANSFERRED TO REHAB Discharge Exam - Head Exam Head Exam: ATRAUMATIC, NORMAL INSPECTION, NORMOCEPHALIC Discharge Plan - Follow Up Plan Condition: GOOD Disposition: REHAB FACILITY/REHAB UNIT Instructions: Pancreatitis (DC) Additional Instructions: PLACE UNDER THE SERVICE OF DR. CISNEROS WHILE AT [facility]--CALL UPON ARRIVAL TO FACILITY. FOLLOW UP WITH DR WHITING IN 3-5 DAYS CONTINUE HOME MEDS CALL DR CISNEROS'S OFFICE FOR FURTHER ORDERS Referrals: Emile Cisneros MD [Staff Provider] - Kd Whiting MD [Staff Provider] -
== END 2017-01-13 12:45 | DRG 440 ==
LOC: C.ER 12:58 → C.3T 16:31 → OBSVTOIN 01-10 16:46
PROVIDERS: ADMIT Internal Medicine Cardiovascular Disease; ATTEND Internal Medicine Cardiovascular Disease
DX: K85.90 Acute pancreatitis without necrosis or infection, unspecified (principal); K59.09 Other constipation; E10.9 Type 1 diabetes mellitus without complications; I10 Essential (primary) hypertension; Z86.73 Personal history of transient ischemic attack (TIA), and cerebral infarction without residual deficits; E78.00 Pure hypercholesterolemia, unspecified; F32.9 Major depressive disorder, single episode, unspecified; M19.90 Unspecified osteoarthritis, unspecified site; E78.5 Hyperlipidemia, unspecified

== ENCOUNTER 2017-09-08 01:43 | Inpatient (IN) | payer MEDICARE, MEDICAID ==
[2017-09-08 01:44] VITALS: BMI 23.8
[2017-09-08] MEDS ORDERED: Bacitracin 500 Units/gm Oint Foilpak UD ONE (01:59)
--- NOTE | 2017-09-08 02:11 | C.PDOC ---
History Of Present Illness Patient brought in to the hospital due to episoe of losing his balance and falling. Subseuently injured the right side of his head with bleeding. Patient hsad old Hx of CVA and on plavix. - HPI Chief Complaint (Nursing): Trauma History Per: Patient, Family History/Exam Limitations: no limitations Onset/Duration Of Symptoms: Mins Injury Occurred (Timing): Just Before Arrival Description Of Injury (Context): lost balance and fell. Location Of Injury: Right: Head (Right parietal area) Severity: Mild Pain Scale Rating Of: 2 Recent travel outside of the [facility]: No Additional History Per: Patient, Family - Fall Fall:Prior To Injury: Lost Balance Past Medical History Vital Signs: Last Vital Signs Temp 98 F 09/08/17 02:00 Pulse 96 H 09/08/17 05:27 Resp 18 09/08/17 05:27 BP 105/50 L 09/08/17 05:27 Pulse Ox 97 09/08/17 05:51 - Medical History PMH: Arthritis (KNEES), CVA (Ischemic, 2 months ago.), Depression, HTN, Hypercholesterolemia, Hyperlipidemia, Seizures Denies: Chronic Kidney Disease Surgical History: No Surg Hx Family History: States: Unknown Family Hx - Social History Hx Alcohol Use: No Hx Substance Use: No - Immunization History Hx Tetanus Toxoid Vaccination: No Hx Influenza Vaccination: No Hx Pneumococcal Vaccination: No Review Of Systems Constitutional: Negative for: Fever, Chills, Sweats Eyes: Negative for: Vision Change ENT: Negative for: Ear Discharge, Nose Pain, Nose Discharge Cardiovascular: Negative for: Chest Pain, Palpitations Respiratory: Negative for: Cough, Shortness of Breath, Hemoptysis Musculoskeletal: Negative for: Neck Pain, Shoulder Pain, Arm Pain Skin: Positive for: Other (abrasion of Right parietal area). Negative for: Rash Neurological: Negative for: Weakness, Numbness, Incoordination, Change in Speech , Confusion, Seizures, Altered Mental Status, Headache Psych: Negative for: Anxiety, Psychosis, Suicidal ideation Physical Exam - Physical Exam Appears: Well Skin: Normal Color Head: Abrasion (Right parietal area with bleding, no definite laceration noted) Eye(s): bilateral: Normal Inspection Ear(s): Bilateral: Normal Neck: Normal, Normal ROM, Trachea Midline, No Midline Cervical Tenderness, No Paracervical Tenderness, Supple Chest: Symmetrical, No Deformity, No Tenderness Cardiovascular: Rhythm Regular Respiratory: Normal Breath Sounds Gastrointestinal/Abdominal: Normal Exam Back: Normal Inspection ED Course And Treatment - Laboratory Results Result Diagrams: 09/08/17 02:12 09/08/17 02:41 ECG: Interpreted By Me, Viewed By Me ECG Rhythm: Sinus Rhythm ECG Interpretation: Normal, No Acute Changes Interpretation Of ECG: NSR, normal tracings. Rate From EC O2 Sat by Pulse Oximetry: 97 (RA) Pulse Ox Interpretation: Normal - Other Rad CXR X-Ray: Viewed By Me, Read By Radiologist Interpretation: EXAM: XR Chest, 1 View. EXAM DATE/TIME: 09/08/2017 3:32 AM. CLINICAL HISTORY: 81 years old, male; Signs and symptoms; Shortness of breath; Additional info: Subdural hematoma/. admission. TECHNIQUE: Frontal view of the chest. COMPARISON: CR - CHEST PORTABLE 2015-05-06 15:56. FINDINGS: The mediastinal cardiac silouette is normal in size. The lungs are clear. No effusions are identified. The osseous structures are normal. IMPRESSION: [facility]. [facility]. Final Radiology Report [id number]. Name: LORI OMER Age: 81Years M Date: 09/08/2017. SSN: [id number] : 1935. Study: XR CHEST 1 VIEW Requesting Physician: Festus Eng. Images: 2. Addl Studies: Provided Clinical History: subdural hematoma/ admission. CONFIDENTIALITY STATEMENT. This transmission is confidential and is intended to be a privileged communication. It is intended only for the use of the addressee. Access to this. message by anyone else is unauthorized. If you are not the intended recipient, any disclosure, copying, distribution or any action taken, or omitted to. be taken in reliance on it is prohibited and may be unlawful. If you received this communication in error, please notify us by telephone, so that return. of this document to us can be arranged. Page 2 of 2. No acute findings. - CT Scan/US CT Head Other Rad Studies (CT/US): Read By Radiologist, Radiology Report Reviewed CT/US Interpretation: Addendum created by Adrianne Delgadillo MD on 09/08/2017 3:12 AM Eastern Time ([place] & [place]). Findings were discussed with Dr. Eng. This report contains findings that may be critical for patient. care. Initial Report created on 09/08/2017 3:03 AM Eastern Time ([place] & [place]). EXAM: CT Head Without Intravenous Contrast. EXAM DATE/TIME: 09/08/2017 2:05 AM. CLINICAL HISTORY: 81 years old, male; Injury or trauma; Fall; Initial encounter; Abrasion; Scalp; Additional info: Headache. TECHNIQUE: Axial computed tomography images of the head/brain without intravenous contrast. All CT scans at. this facility use one or more dose reduction techniques, viz.: automated exposure control; ma/kV. adjustment per patient size (including targeted exams where dose is matched to indication; i.e. head);. or iterative reconstruction technique. Coronal and sagittal reformatted images were created and reviewed. COMPARISON: CT - HEAD W/O (CODE STROKE) 2015-05-06 15:19. FINDINGS: [facility]. [facility]. Final Radiology Report [id number]. Name: LORI OMER Age: 81Years M Date: 09/08/2017. SSN: [id number] : 1935. Study: CT HEAD WO Requesting Physician: Festus Eng. Images: [id number]. Addl Studies: Provided Clinical History: Headache. CONFIDENTIALITY STATEMENT. This transmission is confidential and is intended to be a privileged communication. It is intended only for the use of the addressee. Access to this. message by anyone else is unauthorized. If you are not the intended recipient, any disclosure, copying, distribution or any action taken, or omitted to. be taken in reliance on it is prohibited and may be unlawful. If you received this communication in error, please notify us by telephone, so that return. of this document to us can be arranged. Page 2 of 3. There is subcutaneous soft tissue swelling in the left parietal region. There is a hyperdense collection paralleling the inner cortex of the right parietal bone consistent with. acute subdural hemorrhage. The subdural hematoma measures 3-4 mm in width. No mass effect or midline shift. There is atrophy. There is chronic small vessel ischemic disease. There are small areas of low attenuation in the basal ganglia bilaterally similar to prior consistent. with old lacunar infarcts. Mild mucosal thickening ethmoid sinuses. The osseous structures are normal. IMPRESSION: Right parietal subdural hematoma with overlying soft tissue swelling. Progress Note: 0430H Patient evaluated for ICU admission, presently awaiting for neuro surgical service for consult before ICU admit. Dr. Jacobsen called. Medical Decision Making Medical Decision Makin:26AM: - Spoke with Lona Carlin from Intensive Care and he will come see the patient. 3:35AM: - Called Dr. Walton, the neurosurgeon and waiting for his call back. 3:54AM: - Called Dr. Walton again and waiting for his call back. 4:39AM: - Called Dr. Walton again and waiting for his call back. 5:30AM: - Difficulty getting in contact with . - Spoke with Dr. Allison. 6:20AM: - Spoke with Ángel Perea and the doctor will take the neuro-surgical consult. Disposition Discussed With : Emile Cisneros Doctor Will See Patient In The: Hospital Counseled Patient/Family Regarding: Diagnosis - Disposition Disposition: HOSPITALIZED Disposition Time: 03:30 Condition: STABLE Forms: [facility] (Cuban) - Clinical Impression Clinical Impression: Subdural hematoma, Head injury
[2017-09-08 02:17] LABS: BASO # 0.1 K/uL (0.0-0.2); BASO % 0.9 % (0.0-2.0); EOS # 0.3 K/uL (0.0-0.7); HEMOGLOBIN 10.7 g/dL (12.0-18.0); LYMPH # 2.1 K/uL (1.0-4.3); MEAN CELL VOLUME 77.8 fL (80.0-94.0); MEAN CORPUSCULAR HGB CONC 32.2 g/dL (33.0-37.0); MEAN PLATELET VOLUME 9.2 fL (7.2-11.7); MONO # 0.6 K/uL (0.0-0.8); MONO % 8.4 % (0.0-10.0); NEUT # 4.1 K/uL (1.8-7.0); NEUT % 57.7 % (50.0-75.0); RBC 4.28 Mil/uL (4.40-5.90); RED CELL DISTRIBUTION WIDTH 17.5 % (11.5-14.5); WHITE BLOOD COUNT 7.2 K/uL (4.8-10.8)
[2017-09-08 02:35] LABS: PROTHROMBIN TIME 10.6 SECONDS (9.7-12.2)
[2017-09-08 02:55] LABS: ALB/GLOB RATIO 0.9 (1.0-2.1); ALBUMIN 3.5 g/dL (3.5-5.0); ALT/SGPT 12 U/L (21-72); AST/SGOT 18 U/L (17-59); BLOOD UREA NITROGEN 21 mg/dL (9-20); CALCIUM 8.7 mg/dl (8.6-10.4); GFR AFRICAN-AMERICAN > 60; GFR NON-AFRICAN AMERICAN > 60
--- NOTE | 2017-09-08 03:03 | CT ---
EXAM: CT Head Without Intravenous Contrast EXAM DATE/TIME: 09/08/2017 2:05 AM CLINICAL HISTORY: 81 years old, male; Injury or trauma; Fall; Initial encounter; Abrasion; Scalp; Additional info: Headache TECHNIQUE: Axial computed tomography images of the head/brain without intravenous contrast. All CT scans at this facility use one or more dose reduction techniques, viz.: automated exposure control; ma/kV adjustment per patient size (including targeted exams where dose is matched to indication; i.e. head); or iterative reconstruction technique. Coronal and sagittal reformatted images were created and reviewed. COMPARISON: CT - HEAD W/O (CODE STROKE) 2015-05-06 15:19 FINDINGS: There is subcutaneous soft tissue swelling in the left parietal region. There is a hyperdense collection paralleling the inner cortex of the right parietal bone consistent with acute subdural hemorrhage. The subdural hematoma measures 3-4 mm in width. No mass effect or midline shift. There is atrophy. There is chronic small vessel ischemic disease. There are small areas of low attenuation in the basal ganglia bilaterally similar to prior consistent with old lacunar infarcts. Mild mucosal thickening ethmoid sinuses. The osseous structures are normal. IMPRESSION: Right parietal subdural hematoma with overlying soft tissue swelling.
--- NOTE | 2017-09-08 04:17 | RAD ---
EXAM: XR Chest, 1 View EXAM DATE/TIME: 09/08/2017 3:32 AM CLINICAL HISTORY: 81 years old, male; Signs and symptoms; Shortness of breath; Additional info: Subdural hematoma/ admission TECHNIQUE: Frontal view of the chest. COMPARISON: CR - CHEST PORTABLE 2015-05-06 15:56 FINDINGS: The mediastinal cardiac silouette is normal in size. The lungs are clear. No effusions are identified. The osseous structures are normal. IMPRESSION: No acute findings.
--- NOTE | 2017-09-08 04:47 | CP.PCM.CON ---
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 Review of Systems - Constitutional Constitutional: absent: Anorexia, Chills, Fever, Frequent Falls, Headache, Lethargy - EENT Eyes: absent: Change in Vision, Pain Ears: absent: Ear Pain, Dizziness Nose/Mouth/Throat: absent: Nasal Congestion, Sore Throat, Neck Pain - Cardiovascular Cardiovascular: absent: Chest Pain, Dyspnea, Leg Edema, Palpitations, Syncope - Respiratory Respiratory: absent: Cough, Dyspnea - Gastrointestinal Gastrointestinal: absent: Change in Bowel Habits, Nausea, Vomiting - Genitourinary Genitourinary: absent: Dysuria, Hematuria - Musculoskeletal Musculoskeletal: Arthralgias. absent: Numbness - Integumentary Integumentary: absent: Rash, Jaundice - Neurological Neurological: Focal Weakness. absent: Dizziness Additional comments: right sided weakness following CVA 2 yrs ago,uses cane or walker for ambulation Past Patient History - Past Medical History & Family History Past Medical History?: Yes - Past Social History Smoking Status: Never Smoked Chewing Tobacco Use: No Alcohol: None Drugs: Denies Home Situation {Lives}: With Family - CARDIAC Hx Hypercholesterolemia: Yes Hx Hypertension: Yes - PULMONARY Hx Respiratory Disorders: No - NEUROLOGICAL Hx Seizures: Yes - HEENT Hx HEENT Problems: No - RENAL Hx Chronic Kidney Disease: No - ENDOCRINE/METABOLIC Hx Diabetes Mellitus Type 1: Yes - HEMATOLOGICAL/ONCOLOGICAL Hx Blood Disorders: No - INTEGUMENTARY Other/Comment: Old 50-60 Yrs Old LFA Small Area Soft Skin. - MUSCULOSKELETAL/RHEUMATOLOGICAL Hx Arthritis: Yes (KNEES) - GASTROINTESTINAL Hx Gastrointestinal Disorders: No - GENITOURINARY/GYNECOLOGICAL Hx Urinary Tract Infection: Yes - PSYCHIATRIC Hx Depression: Yes Hx Substance Use: No - SURGICAL HISTORY Hx Surgeries: Yes Other/Comment: Vasectomy 1968 - ANESTHESIA Hx Anesthesia: Yes Hx Anesthesia Reactions: No Hx Malignant Hyperthermia: No Meds Allergies/Adverse Reactions: Allergies Allergy/AdvReac Type Severity Reaction Status Date / Time camphor Allergy ITCHING Verified 09/08/17 01:59 menthol Allergy ITCHING Verified 09/08/17 01:59 eggs Allergy ITCHING Uncoded 09/08/17 01:59 Physical Exam - Constitutional Appears: No Acute Distress - Head Exam Head Exam: NORMOCEPHALIC Additional comments: right parietal area with superficial laceration and swelling - Eye Exam Eye Exam: EOMI, Normal appearance, PERRL. absent: Conjunctival injection, Scleral icterus Pupil Exam: NORMAL ACCOMODATION - ENT Exam ENT Exam: Mucous Membranes Dry - Neck Exam Neck exam: Positive for: Full Rom, Normal Inspection - Respiratory Exam Respiratory Exam: Clear to Auscultation Bilateral, NORMAL BREATHING PATTERN. absent: Rhonchi, Wheezes - Cardiovascular Exam Cardiovascular Exam: REGULAR RHYTHM. absent: JVD - GI/Abdominal Exam GI & Abdominal Exam: Normal Bowel Sounds, Soft. absent: Tenderness - Extremities Exam Extremities exam: Negative for: calf tenderness Additional comments: mild swelling right calf - Back Exam Back exam: NORMAL INSPECTION. absent: rash noted - Neurological Exam Neurological exam: Alert, CN II-XII Intact, Oriented x3 - Skin Skin Exam: Normal Color, Warm Results - Vital Signs Recent Vital Signs: Last Vital Signs Temp 98 F 09/08/17 02:00 Pulse 87 09/08/17 03:26 Resp 20 09/08/17 03:26 BP 119/58 L 09/08/17 03:26 Pulse Ox 97 09/08/17 04:40 - Labs Result Diagrams: 09/08/17 02:12 09/08/17 02:41 Labs: Laboratory Results - last 24 hr 09/08/17 09/08/17 09/08/17 01:54 02:12 02:12 WBC 7.2 RBC 4.28 L Hgb 10.7 L Hct 33.3 L MCV 77.8 L D MCH 25.0 L MCHC 32.2 L RDW 17.5 H Plt Count 222 MPV 9.2 Neut % (Auto) 57.7 Lymph % (Auto) 29.0 [place] % (Auto) 8.4 Eos % (Auto) 4.0 Baso % (Auto) 0.9 Neut # (Auto) 4.1 Lymph # (Auto) 2.1 [place] # (Auto) 0.6 Eos # (Auto) 0.3 Baso # (Auto) 0.1 PT 10.6 INR 1.0 APTT 25 Sodium Potassium Chloride Carbon Dioxide Anion Gap BUN Creatinine Est GFR ( Amer) Est GFR (Non-Af Amer) POC Glucose (mg/dL) 149 H Random Glucose Calcium Total Bilirubin AST ALT Alkaline Phosphatase Total Protein Albumin Globulin Albumin/Globulin Ratio 09/08/17 02:41 WBC RBC Hgb Hct MCV MCH MCHC RDW Plt Count MPV Neut % (Auto) Lymph % (Auto) [place] % (Auto) Eos % (Auto) Baso % (Auto) Neut # (Auto) Lymph # (Auto) [place] # (Auto) Eos # (Auto) Baso # (Auto) PT INR APTT Sodium 141 Potassium 4.1 Chloride 106 Carbon Dioxide 25 Anion Gap 15 BUN 21 H Creatinine 1.0 Est GFR ( Amer) > 60 Est GFR (Non-Af Amer) > 60 POC Glucose (mg/dL) Random Glucose 138 H Calcium 8.7 Total Bilirubin 0.3 AST 18 ALT 12 L D Alkaline Phosphatase 84 Total Protein 7.4 Albumin 3.5 Globulin 3.9 Albumin/Globulin Ratio 0.9 L - EKG Data EKG shows normal: Sinus rhythm Rate: Normal - Imaging and Cardiology CT scan - head Status: Image reviewed by me, Report reviewed by me Chest x-ray Status: Image reviewed by me, Report reviewed by me Assessment & Plan - Assessment and Plan (Free Text) Assessment: 1.Subdural hematoma following fall d/c plavix and aspirin awaiting neurosurgery recommendations 2.HTN/Hyperlipidemia on meds 3.DM on meds 4.Anemia-microcytic iron,TIBC,stool occult blood f/u H/H 5.H/o CVA with right sided weakness
[2017-09-08] MEDS ORDERED: Sodium Chloride 0.9% 1,000 ML IV SCH (06:45)
[2017-09-08] MEDS ORDERED: (Novolin R) Insulin Human Regular 100 units/ml vial SC SCH ×3 (06:45→18:00)
[2017-09-08 08:49] LABS: HEMOGLOBIN 9.6 g/dL (12.0-18.0); MEAN CELL VOLUME 77.6 fL (80.0-94.0); MEAN CORPUSCULAR HEMOGLOBIN 25.2 pg (27.0-31.0); MEAN CORPUSCULAR HGB CONC 32.5 g/dL (33.0-37.0); MEAN PLATELET VOLUME 9.2 fL (7.2-11.7); RBC 3.79 Mil/uL (4.40-5.90); RED CELL DISTRIBUTION WIDTH 17.4 % (11.5-14.5); WHITE BLOOD COUNT 6.5 K/uL (4.8-10.8)
[2017-09-08 09:00] LABS: IRON 23 ug/dL (49-181)
[2017-09-08 09:10] LABS: % IRON SATURATION 6 (20-55); TOTAL IRON BINDING CAPACITY 414 ug/dL (250-450)
[2017-09-08 09:40] LABS: FERRITIN 5.9 ng/mL
--- NOTE | 2017-09-08 11:19 | CP.PCM.PN ---
Subjective - Date & Time of Evaluation Date of Evaluation: 09/08/17 Time of Evaluation: 11:18 - Subjective Subjective: 81 y o male had syncopal episode last nght Had CT showing 3mm r sdh repeat CT shows essentially complete resolution of SDH Pt awake alert conversant Ox3 ADRIÁN motor 5/5 no drift No surgical intervention indicated Neurosurgically clear Objective - Vital Signs/Intake and Output Vital Signs (last 24 hours): Temp Pulse Resp BP Pulse Ox 97.8 F 76 16 128/57 L 100 09/08/17 07:00 09/08/17 07:00 09/08/17 07:00 09/08/17 07:00 09/08/17 07:00 - Medications Medications: Current Medications Insulin Human Regular (Novolin R) 0 unit SC Q6H [facility] PRN Reason: Protocol Last Admin: 09/08/17 07:15 Dose: Not Given Pantoprazole Sodium (Protonix Inj) 40 mg IVP DAILY [facility] - Labs Labs: 09/08/17 08:44 09/08/17 02:41 PT 10.6 SECONDS (9.7-12.2) 09/08/17 02:12 INR 1.0 09/08/17 02:12 APTT 25 SECONDS (21-34) 09/08/17 02:12
--- NOTE | 2017-09-08 11:21 | CT ---
PROCEDURE: CT scan brain dated 09/08/2017 HISTORY: Follow-up subdural hematoma. COMPARISON: Comparison made with prior study dated 09/08/2017. TECHNIQUE: Axial computed tomography images were obtained through the head/brain without intravenous contrast. Radiation dose: Total exam DLP = 1032.56 mGy-cm. This CT exam was performed using one or more of the following dose reduction techniques: Automated exposure control, adjustment of the mA and/or kV according to patient size, and/or use of iterative reconstruction technique. FINDINGS: HEMORRHAGE: Previously noted thin right posterior superior parietal and posterior temporal acute subdural hematoma appears relatively stable. . No new hemorrhages. BRAIN: Moderate diffuse/ confluent chronic periventricular white matter again seen extending peripherally into the deep and subcortical white matter both cerebral hemispheres. There are more discrete chronic infarct changes in the left lateral basal ganglia which is contiguous with a more discrete left frontal subcortical and deep white matter chronic infarct. Moderate to fairly significant volume loss more central evidenced by slight disproportionate enlargement of the ventricles compared sulci. Minor vascular calcifications both carotid siphons. VENTRICLES: No obstructive hydrocephalus. CALVARIUM: Calvarium intact. PARANASAL SINUSES: There is mild hypoplasia left aspect frontal sinus. Remaining visualized paranasal sinuses well-developed. Gutierrez the the Mild mucoperiosteal inflammatory changes seen within the ethmoid air complex MASTOID AIR CELLS: Unremarkable as visualized. No inflammatory changes. OTHER FINDINGS: Changes of bilateral cataract surgery again noted. Gutierrez gutierrez IMPRESSION: No change in right posterior superior parietal and posterior temporal acute subdural hematoma. In the hemorrhage. No hydrocephalus. Moderate central volume loss. Chronic discrete infarct changes left basal ganglia and left frontal deep/subcortical white matter with moderate diffuse/ confluent chronic white matter ischemic changes.
--- NOTE | 2017-09-08 14:46 | CP.PCM.HP ---
History of Present Illness - History of Present Illness History of Present Illness: COMPREHENSIVE HISTORY & PHYSICAL EXAM HPI PT. ADMITTED AFTER A FALL AND SUSTAINED SUBDURAL. PT FELL AT HOME WHILE GOING TO BATHROOM . HAD LACERATION OF SCALP. CT HEAD IN ER SHOWED ACITE SUBDURAL IN L PARIETO-TEMPORAL LOBE . PT HAS NO CMS OR FOCAL DEFICIT PAST HIST. MULTIPLE CEREBRAL INFARCTS /TIA / DEFICIT SPEECH AND RECALL OF EVENTS /T2DM/HTN/ PUD PERSONAL HIST: Smoking. N Alcohol. N Allergy N Travel_- . FAMILY HIST : ROS : Constitutional: Negative for weight change, chills, night sweats, Eyes: Negative for redness, swelling, itching, discharge, vision changes, blurry vision, double vision, glaucoma, cataracts, Ears: Negative for hearing loss, ringing, , tinnitus, vertigo Nose: Negative for rhinorrhea, stuffiness, sniffing, itching, postnasal drip, discoloration, nasal congestion and epistaxis. Throat: Negative for throat clearing, sore throat, hoarseness, difficulty swallowing and difficulty speaking. Respiratory: Negative for cough, , sputum production, chest tightness, wheezing, pleuritic chest pain ,daytime somnolence, chronic cough, hemoptysis, snoring at night, Cardiovascular: Negative for chest pain, palpitations, orthopnea, PND, Edema of legs, leg cramps, angina, claudication, , irregular heartbeat, Neurology: Negative for irritability, muscle weakness, numbness and tingling, seizures, tremors, migraines, slurred speech, syncope, memory loss, mood changes , recurrent headaches Gastrointestinal: Negative for difficulty swallowing, diarrhea, constipation, black stools, rectal bleeding, nausea, flatulence, reflux, poor appetite, changes in bowel habits, abdominal pain Genitourinary: Negative for frequent urination, hematuria, discharge, incontinence, urinary retention, frequent UTI, Psychiatric: Negative for depression, anxiety/panic, suicidal tendencies, Musculoskeletal: Negative for swollen joints, back pain, , neck pain, morning stiffness of joints, . Skin: Negative for rash, ulcers, itching, dry skin and pigmented lesions. P/E: Constitutional: Appears stated age and in no apparent distress. Head: Normocephalic. Ears: External ear canals patent without inflammation. Tympanic membranes intact with normal light reflex and landmark. Eyes: Pupils are central, bilaterally equal, symmetrical and reacts to light with normal movements and no icterus or pallor. Nose: External nares are patent. Mucosa is pink Mouth-Throat: Good general appearance and condition. No post-pharyngeal/oropharyngeal erythema and tonsillar hypertrophy. Good dental hygiene. Neck-Lymphatic: Neck is supple with normal ROM, no thyromegaly, lymph nodes or masses. JVD is normal with no carotid bruit. Lungs: Clear to percussion and auscultation with bilateral normal air entry. Cardiovascular: S1 and S2 are normal with no murmurs, gallops and rub. GI Exam: No hepatomegaly. Abdomen is soft and non-tender. No Organomegaly , masses or hernias are evident and bowel sounds are normal and active. Neurology: Higher function and all cranial nerves intact, with no gross motor or sensory deficit. Superficial and deep reflexes are normal with downwards planters. No cerebellar deficit Musculoskeletal: No tender spots with normal curvature of the spine with no swelling or restricted ROM of the small and large joints. Extremities: Homans sign absent. Intact pulses with no pitting edema, calf tenderness or skin color changes. Skin: No rash, eruptions or abnormal skin pigmentation LAB/RADIOLOGY: ASSESMENT : ACUTE SUBDURAL HEMATOMA LEFT PARIETO-TEMPORAL H/O FALL H/O MULTIPLE TIA PUD T2DM PLAN: ICU MANAGEMENT MONITOR VS/NEURO NEURO SURGICAL EVAL Present on Admission - Present on Admission Any Indicators Present on Admission: No Past Patient History - Past Medical History & Family History Past Medical History?: Yes - Past Social History Smoking Status: Never Smoked - CARDIAC Hx Hypercholesterolemia: Yes Hx Hypertension: Yes - PULMONARY Hx Respiratory Disorders: No - NEUROLOGICAL Hx Seizures: Yes - HEENT Hx HEENT Problems: No - RENAL Hx Chronic Kidney Disease: No - ENDOCRINE/METABOLIC Hx Diabetes Mellitus Type 1: Yes - HEMATOLOGICAL/ONCOLOGICAL Hx Blood Disorders: No - INTEGUMENTARY Other/Comment: Old 50-60 Yrs Old LFA Small Area Soft Skin. - MUSCULOSKELETAL/RHEUMATOLOGICAL Hx Arthritis: Yes (KNEES) Hx Falls: Yes - GASTROINTESTINAL Hx Gastrointestinal Disorders: No - GENITOURINARY/GYNECOLOGICAL Hx Urinary Tract Infection: Yes - PSYCHIATRIC Hx Depression: Yes Hx Substance Use: No - SURGICAL HISTORY Hx Surgeries: Yes Other/Comment: Vasectomy 1968 - ANESTHESIA Hx Anesthesia: Yes Hx Anesthesia Reactions: No Hx Malignant Hyperthermia: No Meds Allergies/Adverse Reactions: Allergies Allergy/AdvReac Type Severity Reaction Status Date / Time camphor Allergy ITCHING Verified 09/08/17 01:59 menthol Allergy ITCHING Verified 09/08/17 01:59 eggs Allergy ITCHING Uncoded 09/08/17 01:59 Results - Vital Signs Recent Vital Signs: Last Vital Signs Temp 97.8 F 09/08/17 07:00 Pulse 76 09/08/17 07:00 Resp 16 09/08/17 07:00 BP 128/57 L 09/08/17 07:00 Pulse Ox 98 09/08/17 12:47 - Labs Result Diagrams: 09/08/17 08:44 09/08/17 02:41 Labs: Laboratory Results - last 24 hr 09/08/17 09/08/17 09/08/17 01:54 02:12 02:12 WBC 7.2 RBC 4.28 L Hgb 10.7 L Hct 33.3 L MCV 77.8 L D MCH 25.0 L MCHC 32.2 L RDW 17.5 H Plt Count 222 MPV 9.2 Neut % (Auto) 57.7 Lymph % (Auto) 29.0 [place] % (Auto) 8.4 Eos % (Auto) 4.0 Baso % (Auto) 0.9 Neut # (Auto) 4.1 Lymph # (Auto) 2.1 [place] # (Auto) 0.6 Eos # (Auto) 0.3 Baso # (Auto) 0.1 PT 10.6 INR 1.0 APTT 25 Sodium Potassium Chloride Carbon Dioxide Anion Gap BUN Creatinine Est GFR ( Amer) Est GFR (Non-Af Amer) POC Glucose (mg/dL) 149 H Random Glucose Calcium Phosphorus Magnesium Iron TIBC % Saturation Ferritin Total Bilirubin AST ALT Alkaline Phosphatase Total Protein Albumin Globulin Albumin/Globulin Ratio Blood Type Antibody Screen 09/08/17 09/08/17 09/08/17 02:41 07:13 08:44 WBC RBC Hgb Hct MCV MCH MCHC RDW Plt Count MPV Neut % (Auto) Lymph % (Auto) [place] % (Auto) Eos % (Auto) Baso % (Auto) Neut # (Auto) Lymph # (Auto) [place] # (Auto) Eos # (Auto) Baso # (Auto) PT INR APTT Sodium 141 Potassium 4.1 Chloride 106 Carbon Dioxide 25 Anion Gap 15 BUN 21 H Creatinine 1.0 Est GFR ( Amer) > 60 Est GFR (Non-Af Amer) > 60 POC Glucose (mg/dL) 104 Random Glucose 138 H Calcium 8.7 Phosphorus 3.9 Magnesium 1.8 Iron TIBC % Saturation Ferritin 5.9 Total Bilirubin 0.3 AST 18 ALT 12 L D Alkaline Phosphatase 84 Total Protein 7.4 Albumin 3.5 Globulin 3.9 Albumin/Globulin Ratio 0.9 L Blood Type Antibody Screen 09/08/17 09/08/17 09/08/17 08:44 08:44 08:44 WBC 6.5 RBC 3.79 L Hgb 9.6 L Hct 29.4 L MCV 77.6 L MCH 25.2 L MCHC 32.5 L RDW 17.4 H Plt Count 213 MPV 9.2 Neut % (Auto) Lymph % (Auto) [place] % (Auto) Eos % (Auto) Baso % (Auto) Neut # (Auto) Lymph # (Auto) [place] # (Auto) Eos # (Auto) Baso # (Auto) PT INR APTT Sodium Potassium Chloride Carbon Dioxide Anion Gap BUN Creatinine Est GFR ( Amer) Est GFR (Non-Af Amer) POC Glucose (mg/dL) Random Glucose Calcium Phosphorus Magnesium Iron 23 L TIBC 414 % Saturation 6 L Ferritin Total Bilirubin AST ALT Alkaline Phosphatase Total Protein Albumin Globulin Albumin/Globulin Ratio Blood Type O POSITIVE Antibody Screen Negative 09/08/17 11:30 WBC RBC Hgb Hct MCV MCH MCHC RDW Plt Count MPV Neut % (Auto) Lymph % (Auto) [place] % (Auto) Eos % (Auto) Baso % (Auto) Neut # (Auto) Lymph # (Auto) [place] # (Auto) Eos # (Auto) Baso # (Auto) PT INR APTT Sodium Potassium Chloride Carbon Dioxide Anion Gap BUN Creatinine Est GFR ( Amer) Est GFR (Non-Af Amer) POC Glucose (mg/dL) 97 Random Glucose Calcium Phosphorus Magnesium Iron TIBC % Saturation Ferritin Total Bilirubin AST ALT Alkaline Phosphatase Total Protein Albumin Globulin Albumin/Globulin Ratio Blood Type Antibody Screen
[2017-09-08] MEDS: (Novolin R) Insulin Human Regular 100 units/ml vial SC SCH (22:00)
[2017-09-09 06:25] LABS: BASO % 0.8 % (0.0-2.0); EOS # 0.2 K/uL (0.0-0.7); EOS % 3.9 % (0.0-4.0); HEMOGLOBIN 10.3 g/dL (12.0-18.0); LYMPH # 1.6 K/uL (1.0-4.3); LYMPH % 26.5 % (20.0-40.0); MEAN CELL VOLUME 77.2 fL (80.0-94.0); MEAN CORPUSCULAR HEMOGLOBIN 25.3 pg (27.0-31.0); MEAN CORPUSCULAR HGB CONC 32.8 g/dL (33.0-37.0); MEAN PLATELET VOLUME 9.4 fL (7.2-11.7); MONO # 0.6 K/uL (0.0-0.8); MONO % 9.4 % (0.0-10.0); NEUT # 3.6 K/uL (1.8-7.0); NEUT % 59.4 % (50.0-75.0); NRBC % 0.1 % (0.0-2.0); RBC 4.09 Mil/uL (4.40-5.90); RED CELL DISTRIBUTION WIDTH 17.1 % (11.5-14.5)
[2017-09-09 06:36] LABS: ALB/GLOB RATIO 0.9 (1.0-2.1); ALBUMIN 3.5 g/dL (3.5-5.0); ALT/SGPT 15 U/L (21-72); AST/SGOT 24 U/L (17-59); BLOOD UREA NITROGEN 22 mg/dL (9-20); GFR AFRICAN-AMERICAN > 60; GFR NON-AFRICAN AMERICAN > 60
[2017-09-09] MEDS: (Novolin R) Insulin Human Regular 100 units/ml vial SC SCH ×4 (08:56→21:50)
--- NOTE | 2017-09-09 15:25 | CP.PCM.PN ---
Objective - Vital Signs/Intake and Output Vital Signs (last 24 hours): Temp Pulse Resp BP Pulse Ox 97.6 F 76 18 134/64 100 09/09/17 12:00 09/09/17 14:50 09/09/17 14:50 09/09/17 13:55 09/09/17 14:50 Intake and Output: 09/09/17 09/09/17 11:59 23:59 Intake Total 280 Output Total 1000 Balance -720 - Medications Medications: Current Medications Famotidine (Pepcid) 20 mg PO DAILY [facility] Last Admin: 09/09/17 09:13 Dose: 20 mg Insulin Human Regular (Novolin R) 0 unit SC ACHS [facility] PRN Reason: Protocol Last Admin: 09/09/17 12:42 Dose: Not Given Lamotrigine (Lamictal) 25 mg PO BID [facility] Last Admin: 09/09/17 09:13 Dose: 25 mg Losartan Potassium (Cozaar) 25 mg PO DAILY [facility] Last Admin: 09/09/17 09:13 Dose: 25 mg Metformin HCl (Glucophage Xr) 500 mg PO DAILY [facility] Last Admin: 09/09/17 09:13 Dose: 500 mg Pantoprazole Sodium (Protonix Inj) 40 mg IVP DAILY [facility] Last Admin: 09/09/17 14:58 Dose: Not Given Rosuvastatin Calcium (Crestor) 20 mg PO HS [facility] - Labs Labs: 09/09/17 06:09 09/09/17 06:10 PT 10.6 SECONDS (9.7-12.2) 09/08/17 02:12 INR 1.0 09/08/17 02:12 APTT 25 SECONDS (21-34) 09/08/17 02:12
[2017-09-10] MEDS: (Novolin R) Insulin Human Regular 100 units/ml vial SC SCH ×2 (08:20→11:52)
[2017-09-10 08:46] VITALS: BP 131/56; O2SAT 98
--- NOTE | 2017-09-10 10:38 | VASCLAB ---
PROCEDURE: Right Lower Extremity Venous Duplex Exam. HISTORY: right lower extremity swelling and pain. PRIORS: None. TECHNIQUE: Right common femoral, femoral, popliteal and posterior tibial, peroneal and great saphenous veins were evaluated. Flow was assessed with color Doppler, compressibility, assessment of phasic flow and augmentation response. Report prepared by Dinesh Lopes, RVT FINDINGS: RIGHT: 1. Common Femoral Vein: 1.1. Compressibility - Fully compressible: Thrombus - None: Flow - Phasic: Augmentation -Normal: Reflux - . 2. Femoral Vein: 2.1. Compressibility - Fully compressible: Thrombus - None: Flow - Phasic: Augmentation -Normal: Reflux - . 3. Popliteal Vein: 3.1. Compressibility - Fully compressible: Thrombus - None: Flow - Phasic: Augmentation -Normal: Reflux - . 4. Posterior Tibial Vein: 4.1. Compressibility - Fully compressible: Thrombus - None: Flow - : Augmentation -: Reflux - . 5. Peroneal Vein: 5.1. Compressibility - Fully compressible: Thrombus - None: Flow - : Augmentation -: Reflux - . 6. Great Saphenous Vein: 6.1. Compressibility - Fully compressible: Thrombus -None: Flow - Phasic: Augmentation - : Reflux - . OTHER FINDINGS: IMPRESSION: No evidence of deep or superficial vein thrombosis of the right lower extremity with excellent venous flow. Normal venous flow noted in the left common femoral vein.
--- NOTE | 2017-09-10 12:13 | CP.PCM.PN ---
Subjective - Date & Time of Evaluation Date of Evaluation: 09/10/17 Time of Evaluation: 12:06 - Subjective Subjective: PT SEEN BY [employer]ICAL [employer] OPERATOR THIS MORNING SITTING IN BED AND OOB. PT HAD PHYSICAL THERAPY THIS MORNING AND TOLERATED WELL. PT DENIES ANY SYMPTOMS. DENIES DIZZINESS, H/A , VISUAL DISTURBANCES, CP, PALPITATIONS, SOB, ABD PAIN. ASSESSMENT UNREMARKABLE ; PT IS GOOD SPIRITS AND EXCITED FOR D/C TODAY. CLEARED BY NEUROSURGERY OVER THE WEEKEND (SEE OFFICIAL PROGRESS NOTE). PT REFUSING LIUDMILA; AGREES FOR HOME PT (RX GIVEN TO [facility] FOR REFERRAL). CLEARED FOR D/C HOME TODAY PER DR. ENGEL. PT INSTRUCTED TO HOLD HIS ASA AND PLAVIX FOR [address] ENGEL'S RECOMMENDATIONS. PT TO CALL HIS OFFICE TODAY TO SET UP A FOLLOW UP APPT FOR SUNDAY OR SUNDAY. DOES NOT NEED REFILLS. PT'S AND SON AT BEDSIDE NOW; ALL D/C AND F/U INFORMATION REVIEWED TOGETHER WITH THEM. PT AND FAMILY IN AGREEMENT WITH PLAN AND THEY VERBALIZE UNDERSTANDING OF D/C, F/U AND RX. NO FURTHER ORDERS. SEE BELOW FOR D/C PLAN GIVEN TO PT: -FOLLOW UP WITH DR. ENGEL IN HIS OFFICE WITHIN 5-7 DAYS OF DISCHARGE---CALL THE OFFICE TOMORROW TO MAKE YOUR APPOINTMENT. -HOME PHYSICAL THERAPY HAS BEEN ARRANGED FOR YOU. THE COMPANY WILL CONTACT YOU ABOUT WHEN THEY WILL START YOUR THERAPY. -YOUR HOME MEDICATIONS WILL CONTINUE USUAL. NO NEW PRESCRIPTIONS TO BE GIVEN TO YOU TODAY. THE ONLY CHANGES MADE TO YOUR HOME MEDICATIONS IS ASPIRIN AND PLAVIX. DO NOT TAKE YOUR ASPIRIN AND PLAVIX FOR 1 WEEK (YOU MAY RESUME THEM BOTH ON 09/18/17) PER DR. ENGEL -IF YOU HAVE ANY FURTHER QUESTIONS OR CONCERNS, PLEASE CONTACT DR. ENGEL' OFFICE. Objective - Vital Signs/Intake and Output Vital Signs (last 24 hours): Temp Pulse Resp BP Pulse Ox 97.8 F 110 H 18 131/56 L 98 09/10/17 08:00 09/10/17 10:37 09/10/17 10:37 09/10/17 08:00 09/10/17 10:37 Intake and Output: 09/10/17 09/10/17 06:59 18:59 Intake Total 200 300 Output Total 550 400 Balance -350 -100 - Medications Medications: Current Medications Famotidine (Pepcid) 20 mg PO DAILY [facility] Last Admin: 09/10/17 09:47 Dose: 20 mg Insulin Human Regular (Novolin R) 0 unit SC ACHS [facility] PRN Reason: Protocol Last Admin: 09/10/17 11:52 Dose: Not Given Lamotrigine (Lamictal) 25 mg PO BID [facility] Last Admin: 09/10/17 09:47 Dose: 25 mg Losartan Potassium (Cozaar) 25 mg PO DAILY [facility] Last Admin: 09/10/17 09:47 Dose: 25 mg Metformin HCl (Glucophage Xr) 500 mg PO DAILY [facility] Last Admin: 09/10/17 09:47 Dose: 500 mg Rosuvastatin Calcium (Crestor) 20 mg PO HS [facility] Last Admin: 09/09/17 21:50 Dose: 20 mg - Labs Labs: 09/09/17 06:09 09/09/17 06:10 PT 10.6 SECONDS (9.7-12.2) 09/08/17 02:12 INR 1.0 09/08/17 02:12 APTT 25 SECONDS (21-34) 09/08/17 02:12
[2017-09-10 12:24] VITALS: PULSE 92; RESP 21; TEMP 98
--- NOTE | 2017-09-10 13:59 | CP.PCM.DIS ---
Provider - Provider Date of Admission: 09/08/17 06:26 Attending physician: Emile Cisneros MD Time Spent in preparation of Discharge (in minutes): 35 Hospital Course - Lab Results Lab Results: Micro Results 09/08/17 08:13 Naris MRSA Culture (Admit) - Final MRSA NOT DETECTED Most Recent Lab Values WBC 6.0 K/uL (4.8-10.8) 09/09/17 06:09 RBC 4.09 Mil/uL (4.40-5.90) L 09/09/17 06:09 Hgb 10.3 g/dL (12.0-18.0) L 09/09/17 06:09 Hct 31.6 % (35.0-51.0) L 09/09/17 06:09 MCV 77.2 fL (80.0-94.0) L 09/09/17 06:09 MCH 25.3 pg (27.0-31.0) L 09/09/17 06:09 MCHC 32.8 g/dL (33.0-37.0) L 09/09/17 06:09 RDW 17.1 % (11.5-14.5) H 09/09/17 06:09 Plt Count 233 K/uL (130-400) 09/09/17 06:09 MPV 9.4 fL (7.2-11.7) 09/09/17 06:09 Neut % (Auto) 59.4 % (50.0-75.0) 09/09/17 06:09 Lymph % (Auto) 26.5 % (20.0-40.0) 09/09/17 06:09 [place] % (Auto) 9.4 % (0.0-10.0) 09/09/17 06:09 Eos % (Auto) 3.9 % (0.0-4.0) 09/09/17 06:09 Baso % (Auto) 0.8 % (0.0-2.0) 09/09/17 06:09 Neut # (Auto) 3.6 K/uL (1.8-7.0) 09/09/17 06:09 Lymph # (Auto) 1.6 K/uL (1.0-4.3) 09/09/17 06:09 [place] # (Auto) 0.6 K/uL (0.0-0.8) 09/09/17 06:09 Eos # (Auto) 0.2 K/uL (0.0-0.7) 09/09/17 06:09 Baso # (Auto) 0.0 K/uL (0.0-0.2) 09/09/17 06:09 PT 10.6 SECONDS (9.7-12.2) 09/08/17 02:12 INR 1.0 09/08/17 02:12 APTT 25 SECONDS (21-34) 09/08/17 02:12 Sodium 140 mmol/L (132-148) 09/09/17 06:10 Potassium 4.1 mmol/L (3.6-5.2) 09/09/17 06:10 Chloride 104 mmol/L (98-107) 09/09/17 06:10 Carbon Dioxide 25 mmol/L (22-30) 09/09/17 06:10 Anion Gap 15 (10-20) 09/09/17 06:10 BUN 22 mg/dL (9-20) H 09/09/17 06:10 Creatinine 1.0 mg/dL (0.8-1.5) 09/09/17 06:10 Est GFR ( Amer) > 60 09/09/17 06:10 Est GFR (Non-Af Amer) > 60 09/09/17 06:10 POC Glucose (mg/dL) 168 mg/dL (65-110) H 09/10/17 11:46 Random Glucose 143 mg/dL (75-110) H 09/09/17 06:10 Calcium 9.0 mg/dl (8.6-10.4) 09/09/17 06:10 Phosphorus 3.9 mg/dL (2.5-4.5) 09/08/17 08:44 Magnesium 1.8 mg/dL (1.6-2.3) 09/08/17 08:44 Iron 23 ug/dL (49-181) L 09/08/17 08:44 TIBC 414 ug/dL (250-450) 09/08/17 08:44 % Saturation 6 (20-55) L 09/08/17 08:44 Ferritin 5.9 ng/mL 09/08/17 08:44 Total Bilirubin 0.4 mg/dL (0.2-1.3) 09/09/17 06:10 AST 24 U/L (17-59) 09/09/17 06:10 ALT 15 U/L (21-72) L D 09/09/17 06:10 Alkaline Phosphatase 79 U/L (38-126) 09/09/17 06:10 Total Protein 7.3 g/dL (6.3-8.3) 09/09/17 06:10 Albumin 3.5 g/dL (3.5-5.0) 09/09/17 06:10 Globulin 3.8 gm/dL (2.2-3.9) 09/09/17 06:10 Albumin/Globulin Ratio 0.9 (1.0-2.1) L 09/09/17 06:10 Blood Type O POSITIVE 09/08/17 08:44 Antibody Screen Negative 09/08/17 08:44 - Hospital Course Hospital Course: HPI PT. ADMITTED AFTER A FALL AND SUSTAINED SUBDURAL. PT FELL AT HOME WHILE GOING TO BATHROOM . HAD LACERATION OF SCALP. CT HEAD IN ER SHOWED ACITE SUBDURAL IN L PARIETO-TEMPORAL LOBE . PT HAS NO CMS OR FOCAL DEFICIT PAST HIST. 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 CISNEROS IN HIS OFFICE WITHIN 5-7 DAYS OF DISCHARGE---CALL THE OFFICE TOMORROW TO MAKE YOUR APPOINTMENT. -HOME PHYSICAL THERAPY HAS BEEN ARRANGED FOR YOU. THE COMPANY WILL CONTACT YOU ABOUT WHEN THEY WILL START YOUR THERAPY. -YOUR HOME MEDICATIONS WILL CONTINUE USUAL. NO NEW PRESCRIPTIONS TO BE GIVEN TO YOU TODAY. THE ONLY CHANGES MADE TO YOUR HOME MEDICATIONS IS ASPIRIN AND PLAVIX. DO NOT TAKE YOUR ASPIRIN AND PLAVIX FOR 1 WEEK (YOU MAY RESUME THEM BOTH ON 09/18/17) PER DR. CISNEROS -IF YOU HAVE ANY FURTHER QUESTIONS OR CONCERNS, PLEASE CONTACT DR. CISNEROS' OFFICE. Referrals: Florentin Jacobsen MD [Staff Provider] - Emile Cisneros MD [Family Provider] -
== END 2017-09-10 13:15 | disposition home or self-care (01) | DRG 84 ==
LOC: C.ER 01:43 → C.9I 06:26
PROVIDERS: ADMIT Internal Medicine Cardiovascular Disease; ATTEND Internal Medicine Cardiovascular Disease
DX: S06.5X9A Traumatic subdural hemorrhage with loss of consciousness of unspecified duration, initial encounter (principal); W01.0XXA Fall on same level from slipping, tripping and stumbling without subsequent striking against object, initial encounter; M17.0 Bilateral primary osteoarthritis of knee; S01.01XA Laceration without foreign body of scalp, initial encounter; Y92.009 Unspecified place in unspecified non-institutional (private) residence as the place of occurrence of the external cause; Z79.02 Long term (current) use of antithrombotics/antiplatelets; Z79.4 Long term (current) use of insulin; K21.9 Gastro-esophageal reflux disease without esophagitis; I10 Essential (primary) hypertension; E78.5 Hyperlipidemia, unspecified; D50.9 Iron deficiency anemia, unspecified; Z86.73 Personal history of transient ischemic attack (TIA), and cerebral infarction without residual deficits; E11.9 Type 2 diabetes mellitus without complications; I67.2 Cerebral atherosclerosis; Z68.22 Body mass index [BMI] 22.0-22.9, adult

== ENCOUNTER 2017-10-26 20:57 | Observation (INO) | payer MEDICARE, MEDICAID ==
[2017-10-26 20:57] VITALS: BMI 23.8
--- NOTE | 2017-10-26 21:21 | C.PDOC ---
History Of Present Illness 81yo male, with history of a prior CVA (walks with a cane and has mild slurred speech), presents to ED with complaints of palpitation since this morning. He also reports a vague neck pain but denies any trauma, or injuries. He denies any associated fever, chills, shortness of breath, headache, weakness. No other complaints. PMD: Dr. Lebron Robert Time Seen by Provider: 10/26/17 21:04 Chief Complaint (Nursing): Palpitations History Per: Patient History/Exam Limitations: no limitations Onset/Duration Of Symptoms: Hrs Current Symptoms Are (Timing): Still Present Associated Symptoms: denies: Nausea, Dyspnea, Diaphoresis, Syncope Past Medical History Reviewed: Historical Data, Nursing Documentation, Vital Signs Vital Signs: Last Vital Signs Temp 97.4 F L 10/29/17 15:20 Pulse 84 10/29/17 15:20 Resp 20 10/29/17 15:20 BP 125/64 10/29/17 15:20 Pulse Ox 100 10/29/17 15:20 - Medical History PMH: Arthritis, CVA (Ischemic, 2 months ago.), Depression, HTN, Hypercholesterolemia, Hyperlipidemia, Seizures Denies: Chronic Kidney Disease Surgical History: No Surg Hx Family History: States: No Known Family Hx, Unknown Family Hx - Social History Hx Tobacco Use: No Hx Alcohol Use: No Hx Substance Use: No - Immunization History Hx Tetanus Toxoid Vaccination: No Hx Influenza Vaccination: No Hx Pneumococcal Vaccination: No Review Of Systems Except As Marked, All Systems Reviewed And Found Negative. Constitutional: Negative for: Fever, Chills Cardiovascular: Positive for: Palpitations. Negative for: Chest Pain Respiratory: Negative for: Shortness of Breath Gastrointestinal: Negative for: Abdominal Pain Musculoskeletal: Positive for: Neck Pain Neurological: Negative for: Weakness, Headache Physical Exam - Physical Exam Appears: Non-toxic, No Acute Distress Skin: Normal Color, Warm, Dry Head: Atraumatic, Normacephalic Eye(s): bilateral: Normal Inspection Neck: Normal ROM, No Midline Cervical Tenderness, No Paracervical Tenderness, Supple Chest: Symmetrical, No Tenderness Cardiovascular: Rhythm Regular, No Murmur Respiratory: Normal Breath Sounds Gastrointestinal/Abdominal: Normal Exam, Soft, No Tenderness Back: Normal Inspection Extremity: Normal ROM, No Deformity Neurological/Psych: Oriented x3, No Normal Speech (slurred speech due to hx of CVA) ED Course And Treatment - Laboratory Results Result Diagrams: 10/26/17 21:37 10/26/17 21:37 ECG: Interpreted By Me, Viewed By Me ECG Rhythm: Sinus Rhythm ECG Interpretation: Normal Interpretation Of ECG: NO ST/T CHANGES Rate From EC O2 Sat by Pulse Oximetry: 95 (RA) Pulse Ox Interpretation: Normal Medical Decision Making Medical Decision Making: Impression: Palpitations Plan: -- EKG -- Labs -- CXR -- Urinalysis labs neg. discussed with dr robert. requests obs. Disposition - Disposition Disposition: HOSPITALIZED Disposition Time: 10:00 Condition: STABLE - Clinical Impression Clinical Impression: Palpitations - Scribe Statement The provider has reviewed the documentation as recorded by the Scribe (Sangita Bateman) Provider Attestation: All medical record entries made by the Scribe were at my direction and personally dictated by me. I have reviewed the chart and agree that the record accurately reflects my personal performance of the history, physical exam, medical decision making, and the department course for this patient. I have also personally directed, reviewed, and agree with the discharge instructions and disposition. Decision To Admit - Pt Status Changed To: Hospital Disposition Of: Observation - . Bed Request Type: Telemetry Admitting Physician: Emile Robert Patient Diagnosis: Palpitations
[2017-10-26 21:42] LABS: BASO # 0.1 K/uL (0.0-0.2); BASO % 1.2 % (0.0-2.0); EOS # 0.3 K/uL (0.0-0.7); LYMPH % 26.6 % (20.0-40.0); MEAN CELL VOLUME 77.4 fL (80.0-94.0); MEAN CORPUSCULAR HEMOGLOBIN 25.3 pg (27.0-31.0); MEAN CORPUSCULAR HGB CONC 32.6 g/dL (33.0-37.0); MEAN PLATELET VOLUME 9.2 fL (7.2-11.7); MONO % 13.3 % (0.0-10.0); NEUT # 4.2 K/uL (1.8-7.0); NEUT % 54.9 % (50.0-75.0); RBC 3.94 Mil/uL (4.40-5.90); RED CELL DISTRIBUTION WIDTH 17.3 % (11.5-14.5); WHITE BLOOD COUNT 7.6 K/uL (4.8-10.8)
[2017-10-26 21:52] LABS: PROTHROMBIN TIME 10.9 SECONDS (9.7-12.2)
[2017-10-26 21:54] LABS: ALB/GLOB RATIO 0.9 (1.0-2.1); ALBUMIN 3.6 g/dL (3.5-5.0); ALT/SGPT 29 U/L (21-72); AST/SGOT 19 U/L (17-59); BLOOD UREA NITROGEN 24 mg/dL (9-20); CALCIUM 8.8 mg/dl (8.6-10.4); GFR AFRICAN-AMERICAN > 60; GFR NON-AFRICAN AMERICAN > 60
[2017-10-26] MEDS ORDERED: Home Med 1 UNIT (Tramadol/Acetaminophen [Ultracet 37.5/325 Mg] 1 TAB) PO PRN (22:55)
--- NOTE | 2017-10-26 23:08 | CP.PCM.HP ---
History of Present Illness - History of Present Illness History of Present Illness: COMPREHENSIVE HISTORY & PHYSICAL EXAM Patient was admitted from the emergency room complaining of palpitations Patient is a poor historian because of the recent CVA and slurring of the speech. Patient stated that he woke up and started getting some atypical chest pain and then patient experienced palpitation patient presented to [facility] ER there was no evidence of any cardiac arrhythmia or any new ST-T changes on the EKG. Cardiac enzymes were negative. Due to patients high risk patient is admitted for further observation HPI Patient has been admitted multiple times for CVA and TIA. History of recent subdural hematoma which is resolved by repeat CAT scan of the head. History of type II diabetes history of coronary artery disease and CHF PAST HIST. PERSONAL HIST: Smoking. N Alcohol. N Allergy N Travel_- . FAMILY HIST : ROS : Constitutional: Negative for weight change, chills, night sweats, fatigue Eyes : Negative for redness, swelling, itching, discharge, vision changes, blurry vision, double vision, glaucoma, cataracts, Ears: Negative for hearing loss, ringing, , tinnitus, vertigo Nose: Negative for rhinorrhea, stuffiness, sniffing, itching, postnasal drip, discoloration, nasal congestion and epistaxis. Throat: Negative for throat clearing, sore throat, hoarseness, difficulty swallowing and difficulty speaking. Respiratory: Negative for cough, , sputum production, chest tightness, wheezing, pleuritic chest pain ,daytime somnolence, chronic cough, hemoptysis, snoring at night, Cardiovascular: Negative for Edema of legs, leg cramps, angina, claudication, , irregular heartbeat, Neurology: Negative for irritability, muscle weakness, numbness and tingling, seizures, tremors, migraines, recurrent headaches patient had memory loss is from previous CVA Gastrointestinal: Negative for difficulty swallowing, diarrhea, constipation, black stools, rectal bleeding, nausea, flatulence, reflux, poor appetite, changes in bowel habits, abdominal pain Genitourinary: Negative for frequent urination, hematuria, discharge, incontinence, urinary retention, frequent UTI, Psychiatric: Negative for depression, anxiety/panic, suicidal tendencies, Musculoskeletal: Negative for swollen joints, back pain, , neck pain, morning stiffness of joints, . Skin: Negative for rash, ulcers, itching, dry skin and pigmented lesions. P/E: Constitutional: Appears stated age and in no apparent distress. Head: Normocephalic. Ears: External ear canals patent without inflammation. Tympanic membranes intact with normal light reflex and landmark. Eyes: Pupils are central, bilaterally equal, symmetrical and reacts to light with normal movements and no icterus or pallor. Nose: External nares are patent. Mucosa is pink Mouth-Throat: Good general appearance and condition. No post-pharyngeal/oropharyngeal erythema and tonsillar hypertrophy. Good dental hygiene. Neck-Lymphatic: Neck is supple with normal ROM, no thyromegaly, lymph nodes or masses. JVD is normal with no carotid bruit. Lungs: Clear to percussion and auscultation with bilateral normal air entry. Cardiovascular: S1 and S2 are normal with no murmurs, gallops and rub. GI Exam: No hepatomegaly. Abdomen is soft and non-tender. No Organomegaly , masses or hernias are evident and bowel sounds are normal and active. Neurology: Higher function and all cranial nerves intact, with no gross motor or sensory deficit. Superficial and deep reflexes are normal with downwards planters. No cerebellar deficit with normal gait. Musculoskeletal: No tender spots with normal curvature of the spine with no swelling or restricted ROM of the small and large joints. Extremities: Homans sign absent. Intact pulses with no pitting edema, calf tenderness or skin color changes. Skin: No rash, eruptions or abnormal skin pigmentation LAB/RADIOLOGY: ASSESMENT : History of palpitation possible cardiac arrhythmia secondary to underlying ischemic heart disease and diabetes History of CVA and recent subdural hematoma recovering with residual weaknesses PLAN: We will monitor the patient on telemetry and obtain cardiac enzymes. Present on Admission - Present on Admission Any Indicators Present on Admission: No Past Patient History - Past Medical History & Family History Past Medical History?: Yes - Past Social History Smoking Status: Never Smoked - CARDIAC Hx Hypercholesterolemia: Yes Hx Hypertension: Yes - PULMONARY Hx Respiratory Disorders: No - NEUROLOGICAL Hx Seizures: Yes - HEENT Hx HEENT Problems: No - RENAL Hx Chronic Kidney Disease: No - ENDOCRINE/METABOLIC Hx Diabetes Mellitus Type 1: Yes - HEMATOLOGICAL/ONCOLOGICAL Hx Blood Disorders: No - INTEGUMENTARY Other/Comment: Old 50-60 Yrs Old LFA Small Area Soft Skin. - MUSCULOSKELETAL/RHEUMATOLOGICAL Hx Arthritis: Yes - GASTROINTESTINAL Hx Gastrointestinal Disorders: No - GENITOURINARY/GYNECOLOGICAL Hx Urinary Tract Infection: Yes - PSYCHIATRIC Hx Depression: Yes Hx Substance Use: No - SURGICAL HISTORY Hx Surgeries: Yes Other/Comment: Vasectomy 1968 - ANESTHESIA Hx Anesthesia: Yes Hx Anesthesia Reactions: No Hx Malignant Hyperthermia: No Meds Allergies/Adverse Reactions: Allergies Allergy/AdvReac Type Severity Reaction Status Date / Time camphor Allergy ITCHING Verified 10/26/17 21:06 menthol Allergy ITCHING Verified 10/26/17 21:06 eggs Allergy ITCHING Uncoded 10/26/17 21:06 Results - Vital Signs Recent Vital Signs: Last Vital Signs Temp 98.3 F 10/26/17 21:04 Pulse 96 H 10/26/17 21:04 Resp 16 10/26/17 21:04 BP 149/70 10/26/17 21:04 Pulse Ox 95 10/26/17 21:25 - Labs Result Diagrams: 10/26/17 21:37 10/26/17 21:37 Labs: Laboratory Results - last 24 hr 10/26/17 10/26/17 10/26/17 21:37 21:37 21:37 WBC 7.6 RBC 3.94 L Hgb 10.0 L Hct 30.5 L MCV 77.4 L MCH 25.3 L MCHC 32.6 L RDW 17.3 H Plt Count 262 MPV 9.2 Neut % (Auto) 54.9 Lymph % (Auto) 26.6 [place] % (Auto) 13.3 H Eos % (Auto) 4.0 Baso % (Auto) 1.2 Neut # (Auto) 4.2 Lymph # (Auto) 2.0 [place] # (Auto) 1.0 H Eos # (Auto) 0.3 Baso # (Auto) 0.1 PT 10.9 INR 1.0 APTT 27 D-Dimer, Quantitative Sodium 141 Potassium 4.6 Chloride 105 Carbon Dioxide 24 Anion Gap 17 BUN 24 H Creatinine 1.1 Est GFR ( Amer) > 60 Est GFR (Non-Af Amer) > 60 Random Glucose 204 H Calcium 8.8 Total Bilirubin 0.3 AST 19 ALT 29 Alkaline Phosphatase 102 Troponin I < 0.0120 Total Protein 7.4 Albumin 3.6 Globulin 3.8 Albumin/Globulin Ratio 0.9 L 10/26/17 21:37 WBC RBC Hgb Hct MCV MCH MCHC RDW Plt Count MPV Neut % (Auto) Lymph % (Auto) [place] % (Auto) Eos % (Auto) Baso % (Auto) Neut # (Auto) Lymph # (Auto) [place] # (Auto) Eos # (Auto) Baso # (Auto) PT INR APTT D-Dimer, Quantitative < 200 Sodium Potassium Chloride Carbon Dioxide Anion Gap BUN Creatinine Est GFR ( Amer) Est GFR (Non-Af Amer) Random Glucose Calcium Total Bilirubin AST ALT Alkaline Phosphatase Troponin I Total Protein Albumin Globulin Albumin/Globulin Ratio
[2017-10-27 01:28] LABS: URINE BILIRUBIN NEGATIVE (NEGATIVE); URINE BLOOD NEGATIVE (NEGATIVE); URINE CLARITY Clear (Clear); URINE COLOR Straw (YELLOW); URINE GLUCOSE (UA) NORMAL (Normal); URINE LEUKOCYTE ESTERASE NEG Leu/uL (Negative); URINE PROTEIN NEGATIVE (NEGATIVE); URINE UROBILINOGEN NORMAL mg/dL (0.2-1.0)
[2017-10-27 07:46] LABS: CK-MB 0.71 ng/mL (0.0-3.38)
[2017-10-27] MEDS: (Novolin R) Insulin Human Regular 100 units/ml vial SC SCH ×4 (09:19→21:57)
[2017-10-27] MEDS: POLYETHYLENE GLYCOL 3350 17 GM/Dose PACKET PO SCH (09:20)
[2017-10-27] MEDS: Vitamin B Complex/Vitamin C Tab PO SCH (09:21)
[2017-10-27] MEDS ORDERED: Home Med 1 UNIT (Tramadol/Acetaminophen [Ultracet 37.5/325 Mg] 1 TAB) PO PRN (11:00)
--- NOTE | 2017-10-27 11:27 | RAD ---
PROCEDURE: CHEST RADIOGRAPH, 1 VIEW HISTORY: chest pain COMPARISON: Portable chest 09/08/2017. FINDINGS: LUNGS: No acute pulmonary disease appreciated bilaterally. PLEURA: No pneumothorax or pleural fluid seen. CARDIOVASCULAR: Normal. OSSEOUS STRUCTURES: No significant abnormalities. VISUALIZED UPPER ABDOMEN: Normal. OTHER FINDINGS: None. IMPRESSION: No interval acute cardiopulmonary disease appreciated.
[2017-10-27 14:57] LABS: CK-MB 0.79 ng/mL (0.0-3.38)
--- NOTE | 2017-10-27 15:13 | CP.PCM.PN ---
Subjective - Date & Time of Evaluation Date of Evaluation: 10/27/17 Time of Evaluation: 15:11 - Subjective Subjective: CHIEF COMPLAINTS TODAY : Patient has no further chest pain or palpitation. Patient still has slurring of the speech ROS. HEENT : N. Resp : No cough, wheezing ,pleuritic CP ,or hemoptysis Cardio : No anginal CP, PND, orthopnea, palpitation GI : No abd.pain, n/v ,diarrhea or GI bleeding . [facility] NURSE : No headache, vertigo, focal deficit. Musculoskel : No joint swelling , Derm : No rash Psych : Normal affect. Ext : No swelling ,calf pain PE. Pt. is alert awake in no distress. V.S As noted in the chart Head ,ear nose,throat and eyes : Normal. Neck : Supple with normal carotids. Lungs: Clear air entry. Heart : S1 & S2 normal with S4. No murmur. Abd : Soft non tender with normal bowel sounds. Neuro : Moves all ext. with no localized deficit. Ext : No edema with intact pulses.Non tender calves Derm : No rashes or decubitus ulcer. LABS/RADIOLOGY: 3 sets of cardiac enzymes are negative. EKG shows no acute ST- T changes ASSESSMENT/PLAN : Will observe patient for another 24 hours on telemetry and plan further. Objective - Vital Signs/Intake and Output Vital Signs (last 24 hours): Temp Pulse Resp BP Pulse Ox 97.8 F 92 H 20 139/81 99 10/27/17 08:52 10/27/17 12:00 10/27/17 08:52 10/27/17 08:52 10/27/17 12:00 - Medications Medications: Current Medications Famotidine (Pepcid) 20 mg PO DAILY [facility] Last Admin: 10/27/17 09:21 Dose: 20 mg Heparin Sodium (Porcine) (Heparin) 5,000 units SC Q12 [facility] Last Admin: 10/27/17 09:21 Dose: 5,000 units Home Med (Acarbose [Precose 50 Mg Tab]) 50 mg PO BID [facility] Home Med (Tramadol/Acetaminophen [Ultracet 37.5/325 Mg]) 1 tab PO Q4 PRN PRN Reason: Pain Insulin Human Regular (Novolin R) 0 unit SC ACHS [facility] PRN Reason: Protocol Last Admin: 10/27/17 12:50 Dose: 3 unit Lamotrigine (Lamictal) 25 mg PO BID [facility] Last Admin: 10/27/17 09:20 Dose: 25 mg Losartan Potassium (Cozaar) 25 mg PO DAILY [facility] Last Admin: 10/27/17 09:21 Dose: 25 mg Metformin HCl (Glucophage Xr) 500 mg PO DAILY [facility] Last Admin: 10/27/17 09:21 Dose: 500 mg Polyethylene Glycol (Miralax) 17 gm PO DAILY [facility] Last Admin: 10/27/17 09:20 Dose: 17 gm Rosuvastatin Calcium (Crestor) 20 mg PO [facility] Sennosides (Senokot Tab) 8.6 mg PO DAILY [facility] Last Admin: 10/27/17 09:21 Dose: 8.6 mg Vitamin B Complex/Vitamin C (Berocca) 1 tab PO DAILY [facility] Last Admin: 10/27/17 09:21 Dose: 1 tab - Labs Labs: 10/26/17 21:37 10/26/17 21:37 PT 10.9 SECONDS (9.7-12.2) 10/26/17 21:37 INR 1.0 10/26/17 21:37 APTT 27 SECONDS (21-34) 10/26/17 21:37
[2017-10-27 20:11] LABS: URINE BILIRUBIN NEGATIVE (NEGATIVE); URINE BLOOD NEGATIVE (NEGATIVE); URINE CLARITY Hazy (Clear); URINE COLOR Amber (YELLOW); URINE GLUCOSE (UA) NORMAL (Normal); URINE LEUKOCYTE ESTERASE NEG Leu/uL (Negative); URINE PROTEIN NEGATIVE (NEGATIVE); URINE UROBILINOGEN NORMAL mg/dL (0.2-1.0)
[2017-10-28] MEDS: (Novolin R) Insulin Human Regular 100 units/ml vial SC SCH ×3 (07:24→17:29)
[2017-10-28] MEDS: POLYETHYLENE GLYCOL 3350 17 GM/Dose PACKET PO SCH (10:23)
[2017-10-28] MEDS: Vitamin B Complex/Vitamin C Tab PO SCH (10:23)
--- NOTE | 2017-10-28 16:11 | CP.PCM.PN ---
Subjective - Date & Time of Evaluation Date of Evaluation: 10/28/17 Time of Evaluation: 16:10 - Subjective Subjective: Chart reviewed. Vital signs are stable there is no further cardiac arrhythmias Cardiac enzymes are negative. Plan ambulate patient continue present medication Objective - Vital Signs/Intake and Output Vital Signs (last 24 hours): Temp Pulse Resp BP Pulse Ox 97.5 F L 77 20 168/74 H 99 10/28/17 07:15 10/28/17 08:40 10/28/17 07:15 10/28/17 07:15 10/28/17 07:15 - Medications Medications: Current Medications Famotidine (Pepcid) 20 mg PO DAILY [facility] Last Admin: 10/28/17 10:28 Dose: 20 mg Heparin Sodium (Porcine) (Heparin) 5,000 units SC Q12 [facility] Last Admin: 10/28/17 10:29 Dose: 5,000 units Insulin Human Regular (Novolin R) 0 unit SC ACHS [facility] PRN Reason: Protocol Last Admin: 10/28/17 12:35 Dose: Not Given Lamotrigine (Lamictal) 25 mg PO BID [facility] Last Admin: 10/28/17 10:24 Dose: 25 mg Losartan Potassium (Cozaar) 25 mg PO DAILY [facility] Last Admin: 10/28/17 10:23 Dose: 25 mg Metformin HCl (Glucophage Xr) 500 mg PO DAILY [facility] Last Admin: 10/28/17 10:24 Dose: 500 mg Polyethylene Glycol (Miralax) 17 gm PO DAILY [facility] Last Admin: 10/28/17 10:23 Dose: 17 gm Rosuvastatin Calcium (Crestor) 20 mg PO [facility] Sennosides (Senokot Tab) 8.6 mg PO DAILY [facility] Last Admin: 10/28/17 10:23 Dose: 8.6 mg Vitamin B Complex/Vitamin C (Berocca) 1 tab PO DAILY [facility] Last Admin: 10/28/17 10:23 Dose: 1 tab - Labs Labs: 10/26/17 21:37 10/26/17 21:37 PT 10.9 SECONDS (9.7-12.2) 10/26/17 21:37 INR 1.0 10/26/17 21:37 APTT 29 SECONDS (21-34) 10/28/17 06:54
[2017-10-29] MEDS: (Novolin R) Insulin Human Regular 100 units/ml vial SC SCH ×2 (08:30→12:35)
[2017-10-29] MEDS: Vitamin B Complex/Vitamin C Tab PO SCH (09:36)
[2017-10-29] MEDS: POLYETHYLENE GLYCOL 3350 17 GM/Dose PACKET PO SCH (09:36)
[2017-10-29 12:34] VITALS: RESP 20
--- NOTE | 2017-10-29 15:05 | CP.PCM.DIS ---
Provider - Provider Date of Admission: 10/26/17 22:52 Attending physician: Emile Cisneros MD Time Spent in preparation of Discharge (in minutes): 30 Hospital Course - Lab Results Lab Results: Most Recent Lab Values WBC 7.6 K/uL (4.8-10.8) 10/26/17 21:37 RBC 3.94 Mil/uL (4.40-5.90) L 10/26/17 21:37 Hgb 10.0 g/dL (12.0-18.0) L 10/26/17 21:37 Hct 30.5 % (35.0-51.0) L 10/26/17 21: MCV 77.4 fL (80.0-94.0) L 10/26/17 21: MCH 25.3 pg (27.0-31.0) L 10/26/17 21: MCHC 32.6 g/dL (33.0-37.0) L 10/26/17 21: RDW 17.3 % (11.5-14.5) H 10/26/17 21:37 Plt Count 262 K/uL (130-400) 10/26/17 21:37 MPV 9.2 fL (7.2-11.7) 10/26/17 21:37 Neut % (Auto) 54.9 % (50.0-75.0) 10/26/17 21:37 Lymph % (Auto) 26.6 % (20.0-40.0) 10/26/17 21:37 [place] % (Auto) 13.3 % (0.0-10.0) H 10/26/17 21:37 Eos % (Auto) 4.0 % (0.0-4.0) 10/26/17 21:37 Baso % (Auto) 1.2 % (0.0-2.0) 10/26/17 21:37 Neut # (Auto) 4.2 K/uL (1.8-7.0) 10/26/17 21:37 Lymph # (Auto) 2.0 K/uL (1.0-4.3) 10/26/17 21:37 [place] # (Auto) 1.0 K/uL (0.0-0.8) H 10/26/17 21:37 Eos # (Auto) 0.3 K/uL (0.0-0.7) 10/26/17 21:37 Baso # (Auto) 0.1 K/uL (0.0-0.2) 10/26/17 21:37 PT 10.9 SECONDS (9.7-12.2) 10/26/17 21:37 INR 1.0 10/26/17 21:37 APTT 29 SECONDS (21-34) 10/28/17 06:54 D-Dimer, Quantitative < 200 ng/mlDDU (0-243) 10/26/17 21:37 Sodium 141 mmol/L (132-148) 10/26/17 21:37 Potassium 4.6 mmol/L (3.6-5.2) 10/26/17 21:37 Chloride 105 mmol/L (98-107) 10/26/17 21:37 Carbon Dioxide 24 mmol/L (22-30) 10/26/17 21:37 Anion Gap 17 (10-20) 10/26/17 21:37 BUN 24 mg/dL (9-20) H 10/26/17 21:37 Creatinine 1.1 mg/dL (0.8-1.5) 10/26/17 21:37 Est GFR ( Amer) > 60 10/26/17 21:37 Est GFR (Non-Af Amer) > 60 10/26/17 21:37 POC Glucose (mg/dL) 182 mg/dL (65-110) H 10/29/17 11:44 Random Glucose 204 mg/dL (75-110) H 10/26/17 21:37 Calcium 8.8 mg/dl (8.6-10.4) 10/26/17 21:37 Total Bilirubin 0.3 mg/dL (0.2-1.3) 10/26/17 21:37 AST 19 U/L (17-59) 10/26/17 21:37 ALT 29 U/L (21-72) 10/26/17 21:37 Alkaline Phosphatase 102 U/L (38-126) 10/26/17 21:37 Total Creatine Kinase 63 U/L (55-170) 10/27/17 14:25 CK-MB (Mass) 0.79 ng/mL (0.0-3.38) 10/27/17 14:25 Troponin I < 0.0120 ng/mL (0.00-0.120) 10/27/17 14:25 Total Protein 7.4 g/dL (6.3-8.3) 10/26/17 21:37 Albumin 3.6 g/dL (3.5-5.0) 10/26/17 21:37 Globulin 3.8 gm/dL (2.2-3.9) 10/26/17 21:37 Albumin/Globulin Ratio 0.9 (1.0-2.1) L 10/26/17 21:37 Urine Color Porsha (YELLOW) 10/27/17 20:01 Urine Clarity Hazy (Clear) 10/27/17 20:01 Urine pH 5.0 (5.0-8.0) 10/27/17 20:01 Ur Specific [place] 1.017 (1.003-1.030) 10/27/17 20:01 Urine Protein Negative mg/dL (NEGATIVE) 10/27/17 20:01 Urine Glucose (UA) Normal mg/dL (Normal) 10/27/17 20:01 Urine Ketones Negative mg/dL (NEGATIVE) 10/27/17 20:01 Urine Blood Negative (NEGATIVE) 10/27/17 20:01 Urine Nitrate Negative (NEGATIVE) 10/27/17 20:01 Urine Bilirubin Negative (NEGATIVE) 10/27/17 20:01 Urine Urobilinogen Normal mg/dL (0.2-1.0) 10/27/17 20:01 Ur Leukocyte Esterase Neg Yen/uL (Negative) 10/27/17 20:01 Urine WBC (Auto) < 1 /hpf (0-5) 10/27/17 01:23 Urine RBC (Auto) < 1 /hpf (0-3) 10/27/17 20:01 - Hospital Course Hospital Course: Patient was admitted from the emergency room complaining of palpitations Patient is a poor historian because of the recent CVA and slurring of the speech. Patient stated that he woke up and started getting some atypical chest pain and then patient experienced palpitation patient presented to [facility] ER there was no evidence of any cardiac arrhythmia or any new ST-T changes on the EKG. Cardiac enzymes were negative. Due to patients high risk patient is admitted for further observation 3 sets of cardiac enzymes were negative. 24 hour continuous telemetry did not show any further cardiac arrhythmias for 48 hours. Currently patient has no symptoms, will discharge the patient on the current medication and reevaluate outpatient. If patient continues to have symptoms will get 24-hour Holter monitoring. Discharge Plan - Follow Up Plan Condition: GOOD Disposition: HOME/ ROUTINE Instructions: Palpitations (DC) Additional Instructions: TAKE YOUR MEDICATIONS INSTRUCTED BY YOUR DOCTOR,FOR ANY QUESTIONS REGARDING MEDICATIONS PLEASE CALL . CALL HIS OFFICE FOR APPOINTMENT TO SEE HIM IN HIS OFFICE ON 11/08/2017. IF SYMPTOMS RECUR ,PLEASE CALL [facility] AND GO TO THE NEAREST EMERGENCY ROOM. Referrals: Emile Cisneros MD [Staff Provider] -
[2017-10-29 15:34] VITALS: BP 125/64; PULSE 84; TEMP 97.4
--- NOTE | 2017-10-30 14:19 | CARD ---
APPROVED REPORT EKG Measurement Heart [id number] VT [id number] [id number] <Conclusion> Sinus rhythm with occasional premature ventricular complexes Otherwise normal ECG
[2017-10-30 14:39] VITALS: O2SAT 95
== END 2017-10-29 15:05 | disposition home or self-care (01) ==
LOC: C.ER 20:57 → C.9E 22:52 → C.6T 10-27 04:01
PROVIDERS: ADMIT Internal Medicine Cardiovascular Disease; ATTEND Internal Medicine Cardiovascular Disease
DX: R00.2 Palpitations (principal); I69.328 Other speech and language deficits following cerebral infarction; Z79.4 Long term (current) use of insulin; E78.00 Pure hypercholesterolemia, unspecified; E78.5 Hyperlipidemia, unspecified; I11.0 Hypertensive heart disease with heart failure; I25.10 Atherosclerotic heart disease of native coronary artery without angina pectoris; I50.9 Heart failure, unspecified; Z87.440 Personal history of urinary (tract) infections; E11.9 Type 2 diabetes mellitus without complications
CPT/HCPCS: 36415; 71045; 80053; 81001; 82948; 84484; 85025; 85378; 85610; 85730; 93005; 96372; 99285; G0378; J1644

== ENCOUNTER 2018-01-13 10:24 | Inpatient (IN) | payer MEDICARE, MEDICAID ==
[2018-01-13 10:24] VITALS: BMI 23.8
[2018-01-13 11:16] LABS: BASO % 0.3 % (0.0-2.0); EOS # 0.3 K/uL (0.0-0.7); HEMOGLOBIN 10.5 g/dL (12.0-18.0); LYMPH # 1.8 K/uL (1.0-4.3); LYMPH % 12.8 % (20.0-40.0); MEAN CELL VOLUME 79.1 fL (80.0-94.0); MEAN CORPUSCULAR HEMOGLOBIN 25.6 pg (27.0-31.0); MEAN CORPUSCULAR HGB CONC 32.4 g/dL (33.0-37.0); MEAN PLATELET VOLUME 8.6 fL (7.2-11.7); MONO # 0.9 K/uL (0.0-0.8); MONO % 6.1 % (0.0-10.0); NEUT # 11.3 K/uL (1.8-7.0); NEUT % 78.8 % (50.0-75.0); RBC 4.1 Mil/uL (4.40-5.90); RED CELL DISTRIBUTION WIDTH 17.8 % (11.5-14.5)
[2018-01-13 11:17] LABS: WHITE BLOOD COUNT 14.3 K/uL (4.8-10.8)
[2018-01-13 11:31] LABS: ALB/GLOB RATIO 1.1 (1.0-2.1); ALBUMIN 4.3 g/dL (3.5-5.0); CALCIUM 9.1 mg/dl (8.6-10.4)
[2018-01-13 11:59] LABS: TROPONIN I 0.019 ng/mL (0.00-0.120)
[2018-01-13 12:54] LABS: URINE BILIRUBIN NEGATIVE (NEGATIVE); URINE BLOOD 2+ (NEGATIVE); URINE CLARITY Hazy (Clear); URINE COLOR Amber (YELLOW); URINE GLUCOSE (UA) 1+ mg/dL (Normal); URINE LEUKOCYTE ESTERASE 3+ Leu/uL (Negative); URINE PROTEIN 1+ mg/dL (NEGATIVE)
--- NOTE | 2018-01-13 13:45 | CT ---
Date of service: 01/13/2018 PROCEDURE: CT HEAD WITHOUT CONTRAST. HISTORY: r/o ICH COMPARISON: Comparison is made with 10/11/2017 TECHNIQUE: Axial computed tomography images were obtained through the head/brain without intravenous contrast. Radiation dose: Total exam DLP = 864.92 mGy-cm. This CT exam was performed using one or more of the following dose reduction techniques: Automated exposure control, adjustment of the mA and/or kV according to patient size, and/or use of iterative reconstruction technique. FINDINGS: HEMORRHAGE: No intracranial hemorrhage. BRAIN: No mass effect or edema. Moderate atrophy is again noted. Moderate chronic microvascular white matter ischemic disease is also again noted. There is focal encephalomalacia at the left basal ganglia coronal radiata suggestive of chronic lacunar infarction. VENTRICLES: Unremarkable. No hydrocephalus. CALVARIUM: Unremarkable. PARANASAL SINUSES: Unremarkable as visualized. No significant inflammatory changes. MASTOID AIR CELLS: Unremarkable as visualized. No inflammatory changes. OTHER FINDINGS: None. IMPRESSION: No evidence of acute intracranial hemorrhage or significant interval change since the previous exam dated 10/11/2017.
--- NOTE | 2018-01-13 13:56 | CT ---
Date of service: 01/13/2018 PROCEDURE: CT Abdomen and Pelvis without intravenous contrast HISTORY: diffuse abd pain COMPARISON: Comparison is made to the previous study dated 01/09/2017 TECHNIQUE: Comparison is made with previous study dated 01/09/2017 axial and reformatted coronal and sagittal CT images of the abdomen and pelvis were obtained without IV or oral contrast administration.. Contrast dose: 0 Radiation dose: Total exam DLP = 392.07 mGy-cm. This CT exam was performed using one or more of the following dose reduction techniques: Automated exposure control, adjustment of the mA and/or kV according to patient size, and/or use of iterative reconstruction technique. FINDINGS: LOWER THORAX: Unremarkable. LIVER: Mild heterogeneous diffuse low-attenuation of the liver is noted suggestive of mild hepatic steatosis. GALLBLADDER AND BILE DUCTS: Gallstone without evidence of acute cholecystitis. PANCREAS: Unremarkable. No gross lesion or ductal dilatation. SPLEEN: Unremarkable. ADRENALS: Unremarkable. No mass. KIDNEYS AND URETERS: Unremarkable. No hydronephrosis. No solid mass. VASCULATURE: Unremarkable. No aortic aneurysm. BOWEL: Unremarkable. No obstruction. No gross mural thickening. APPENDIX: No evidence of appendicitis. PERITONEUM: Unremarkable. No free fluid. No free air. LYMPH NODES: Unremarkable. No enlarged lymph nodes. BLADDER: Njhv-gq-jhmppovq urinary bladder wall thickening. REPRODUCTIVE: Mildly enlarged prostate. BONES: No acute fracture. OTHER FINDINGS: None. IMPRESSION: No evidence of cholecystitis pancreatitis or appendicitis. No evidence of nephrolithiasis or hydronephrosis. Re- demonstration of mild to moderate diffuse urinary bladder wall thickening and mild prostatectomy.
[2018-01-13] MEDS ORDERED: Sodium Chloride 0.9% 1,000 ML IV SCH (14:00)
[2018-01-13 14:13] LABS: WBC CLUMPS MOD /hpf
--- NOTE | 2018-01-13 14:37 | C.PDOC ---
History Of Present Illness 82 year old male with PMHx of dementia was brought in by family to the ED for confusion for the past week. Patient was admitted in a hospital in [place] for the same presentation. He arrived to the [place] yesterday. Patient has no physical complaints. Family not present at bedside during evaluation. HPI limited to patient's demented status. Time Seen by Provider: 01/13/18 10:51 Chief Complaint (Nursing): Altered Mental Status History Per: Patient History/Exam Limitations: Clinical Condition (Dementia ) Onset/Duration Of Symptoms: Days Onset Of Symptoms: Other (one week) Current Symptoms Are (Timing): Still Present Usual Baseline: Unknown Past Medical History Reviewed: Historical Data, Nursing Documentation, Vital Signs Vital Signs: Last Vital Signs Temp 97.6 F 01/13/18 15:45 Pulse 71 01/13/18 15:45 Resp 20 01/13/18 15:45 BP 131/69 01/13/18 15:45 Pulse Ox 100 01/13/18 18:07 - Medical History PMH: Arthritis, CVA (Ischemic, 2 months ago.), Depression, HTN, Hypercholesterolemia, Hyperlipidemia, Seizures Denies: Chronic Kidney Disease Other Surgeries: Hx of surgeries Family History: States: No Known Family Hx - Social History Hx Tobacco Use: No Hx Alcohol Use: No Hx Substance Use: No - Immunization History Hx Tetanus Toxoid Vaccination: No Hx Influenza Vaccination: No Hx Pneumococcal Vaccination: No Review Of Systems Except As Marked, All Systems Reviewed And Found Negative. Neurological: Positive for: Altered Mental Status Physical Exam - Physical Exam Appears: Non-toxic, No Acute Distress Skin: Warm, Dry Head: Atraumatic, Normacephalic Eye(s): bilateral: Normal Inspection Nose: Normal Oral Mucosa: Moist Neck: Supple Chest: Symmetrical Cardiovascular: Rhythm Regular Respiratory: Normal Breath Sounds, No Rales, No Rhonchi, No Wheezing Gastrointestinal/Abdominal: Other (Pain to palpation throughout abdomen ) Extremity: Normal ROM Neurological/Psych: Other (Alert, awake ) Gait: Steady Additional Physical Exam Comments: Physical exam limited due to patient's cooperation. Family not at bedside upon physical exam. ED Course And Treatment - Laboratory Results Result Diagrams: 01/13/18 11:12 01/13/18 11:12 ECG: Interpreted By Me, Viewed By Me ECG Interpretation: No Acute Changes Rate From EC O2 Sat by Pulse Oximetry: 100 (RA) Pulse Ox Interpretation: Normal - Other Rad CXR X-Ray: Viewed By Me, Read By Radiologist Interpretation: ccession No. : [id number]. Patient Name / ID : KAN SANDOVAL / [id number]. Exam Date : 01/13/2018 11:28:30 ( Approved ). Study Comment : Sex / Age : M / 82Y. Creator : Symone Hirsch MD. Dictator : Symone Hirsch MD. Transit Survey Worker : Armoring Machine Operator : Symone Hirsch MD. Approver2 : Report Date : 01/13/2018 17:11:35. My Comment : . Date of service: 01/13/2018. PROCEDURE: CHEST RADIOGRAPH, 1 VIEW. HISTORY: chest pain. COMPARISON: Comparison is made with 10/26/2017. FINDINGS: LUNGS: No evidence of new infiltrate or consolidation in the lungs. PLEURA: No pneumothorax or pleural fluid seen. CARDIOVASCULAR: Normal. OSSEOUS STRUCTURES: No significant abnormalities. VISUALIZED UPPER ABDOMEN: Normal. OTHER FINDINGS: None. IMPRESSION: No active disease. - CT Scan/US CT Abd/Pel Other Rad Studies (CT/US): Read By Radiologist, Radiology Report Reviewed CT/US Interpretation: Accession No. : [id number]. Patient Name / ID : KAN SANDOVAL / [id number]. Exam Date : 01/13/2018 13:21:19 ( Approved ). Study Comment : Sex / Age : M / 82Y. Creator : Symone Hirsch MD. Dictator : Symone Hirsch MD. Transit Survey Worker : Armoring Machine Operator : Symone Hirsch MD. Approver2 : Report Date : 01/13/2018 13:54:59. My Comment : . Date of service: 01/13/2018. PROCEDURE: CT Abdomen and Pelvis without intravenous contrast. HISTORY: diffuse abd pain. COMPARISON: Comparison is made to the previous study dated 01/09/2017. TECHNIQUE: Comparison is made with previous study dated 01/09/2017 axial and reformatted coronal and sagittal CT images of the abdomen and pelvis were obtained without IV or oral contrast administration.. Contrast dose: 0. Radiation dose: Total exam DLP = 392.07 mGy-cm. This CT exam was performed using one or more of the following dose reduction techniques: Automated exposure control, adjustment of the mA and/or kV according to patient size, and/or use of iterative reconstruction technique. FINDINGS: LOWER THORAX: Unremarkable. LIVER: Mild heterogeneous diffuse low-attenuation of the liver is noted suggestive of mild hepatic steatosis. GALLBLADDER AND BILE DUCTS: Gallstone without evidence of acute cholecystitis. PANCREAS: Unremarkable. No gross lesion or ductal dilatation. SPLEEN: Unremarkable. ADRENALS: Unremarkable. No mass. KIDNEYS AND URETERS: Unremarkable. No hydronephrosis. No solid mass. VASCULATURE: Unremarkable. No aortic aneurysm. BOWEL: Unremarkable. No obstruction. No gross mural thickening. APPENDIX: No evidence of appendicitis. PERITONEUM: Unremarkable. No free fluid. No free air. LYMPH NODES: Unremarkable. No enlarged lymph nodes. BLADDER: Mljc-ap-roxbettl urinary bladder wall thickening. REPRODUCTIVE: Mildly enlarged prostate. BONES: No acute fracture. OTHER FINDINGS: None. IMPRESSION: No evidence of cholecystitis pancreatitis or appendicitis. No evidence of nephrolithiasis or hydronephrosis. Re- demonstration of mild to moderate diffuse urinary bladder wall thickening and mild prostatectomy. CT Head Other Rad Studies (CT/US): Read By Radiologist, Radiology Report Reviewed CT/US Interpretation: Accession No. : [id number]. Patient Name / ID : KAN SANDOVAL / [id number]. Exam Date : 01/13/2018 13:18:09 ( Approved ). Study Comment : Sex / Age : M / 82Y. Creator : Symone Hirsch MD. Dictator : Symone Hirsch MD. Transit Survey Worker : Armoring Machine Operator : Symone Hirsch MD. Approver2 : Report Date : 01/13/2018 13:43:31. My Comment : . Date of service: 01/13/2018. PROCEDURE: CT HEAD WITHOUT CONTRAST. HISTORY : r/o ICH. COMPARISON: Comparison is made with 10/11/2017. TECHNIQUE: Axial computed tomography images were obtained through the head/brain without intravenous contrast. Radiation dose: Total exam DLP = 864.92 mGy-cm. This CT exam was performed using one or more of the following dose reduction techniques: Automated exposure control, adjustment of the mA and/or kV according to patient size, and/or use of iterative reconstruction technique. FINDINGS: HEMORRHAGE: No intracranial hemorrhage. BRAIN: No mass effect or edema. Moderate atrophy is again noted. Moderate chronic microvascular white matter ischemic disease is also again noted. There is focal encephalomalacia at the left basal ganglia coronal radiata suggestive of chronic lacunar infarction. VENTRICLES: Unremarkable. No hydrocephalus. CALVARIUM: Unremarkable. PARANASAL SINUSES: Unremarkable as visualized. No significant inflammatory changes. MASTOID AIR CELLS: Unremarkable as visualized. No inflammatory changes. OTHER FINDINGS: None. IMPRESSION: No evidence of acute intracranial hemorrhage or significant interval change since the previous exam dated 10/11/2017. Medical Decision Making Medical Decision Making: Orders: - EKG - CXR - Rocephin - Ativan - IV fluids - Blood work - Lab work Paperwork from hospital in [facility] shows patient has UTI. 1425 Discussed case with JOSE C Preston. Patient will be admitted to his service. Disposition - Disposition Disposition: HOSPITALIZED Disposition Time: 14:20 Condition: FAIR - Clinical Impression Clinical Impression: UTI (urinary tract infection), Dementia - Scribe Statement The provider has reviewed the documentation as recorded by the Scribe Avis Palafox All medical record entries made by the Scribe were at my direction and personally dictated by me. I have reviewed the chart and agree that the record accurately reflects my personal performance of the history, physical exam, medical decision making, and the department course for this patient. I have also personally directed, reviewed, and agree with the discharge instructions and disposition.
--- NOTE | 2018-01-13 15:38 | CP.PCM.HP ---
History of Present Illness - History of Present Illness History of Present Illness: COMPREHENSIVE HISTORY & PHYSICAL EXAM Patient was admitted from [facility] emergency room with change of mental status HPI Patient recently had gone to [place] and was admitted in hospital in [place] for UTI. Patient presented to yesterday and went straight to the emergency room as family found the patient to be more confused and disoriented and talking without any sense. There was no any deficits. In the emergency room patient was evaluated the pertinent positive finding was the urine showed WBC of 331. Patient mental status was confused not appropriately answering questions. CT of the head showed old CVA. Blood tests were normal with a WBC count of 14.6. Patient was admitted for possible UTI and change of mental status PAST HIST. Patient has a history of diabetes history of hypertension history of previous stroke which has caused dysarthria and some lower extremity weakness and also has dementia. PERSONAL HIST: Smoking. N Alcohol. N Allergy N Travel_- . FAMILY HIST : ROS : Patient disoriented not appropriately answering questions P/E: Constitutional: Appears stated age and in no apparent distress. Head: Normocephalic. Ears: External ear canals patent without inflammation. Tympanic membranes intact with normal light reflex and landmark. Eyes: Pupils are central, bilaterally equal, symmetrical and reacts to light with normal movements and no icterus or pallor. Nose: External nares are patent. Mucosa is pink Mouth-Throat: Good general appearance and condition. No post-pharyngeal/oropharyngeal erythema and tonsillar hypertrophy. Good dental hygiene. Neck-Lymphatic: Neck is supple with normal ROM, no thyromegaly, lymph nodes or masses. JVD is normal with no carotid bruit. Lungs: Clear to percussion and auscultation with bilateral normal air entry. Cardiovascular: S1 and S2 are normal with no murmurs, gallops and rub. GI Exam: No hepatomegaly. Abdomen is soft and non-tender. No Organomegaly , masses or hernias are evident and bowel sounds are normal and active. Neurology: Higher function and all cranial nerves intact, with no gross motor or sensory deficit. Superficial and deep reflexes are normal with downwards planters. No cerebellar deficit with normal gait. Musculoskeletal: No tender spots with normal curvature of the spine with no swelling or restricted ROM of the small and large joints. Extremities: Homans sign absent. Intact pulses with no pitting edema, calf tenderness or skin color changes. Skin: No rash, eruptions or abnormal skin pigmentation LAB/RADIOLOGY: ASSESMENT : Change of mental status probably secondary to infection probably secondary to UTI. Type 2 diabetes hypertension. History of stroke with residual weakness and speech disturbance and deficit of memory and recall PLAN: Septic workup IV antibiotics ID evaluation monitor the patient. Present on Admission - Present on Admission Any Indicators Present on Admission: No Past Patient History - Past Medical History & Family History Past Medical History?: Yes - Past Social History Smoking Status: Never Smoked - CARDIAC Hx Hypercholesterolemia: Yes Hx Hypertension: Yes - PULMONARY Hx Respiratory Disorders: No - NEUROLOGICAL Hx Seizures: Yes - HEENT Hx HEENT Problems: No - RENAL Hx Chronic Kidney Disease: No - ENDOCRINE/METABOLIC Hx Diabetes Mellitus Type 1: Yes - HEMATOLOGICAL/ONCOLOGICAL Hx Blood Disorders: No - INTEGUMENTARY Other/Comment: Old 50-60 Yrs Old LFA Small Area Soft Skin. - MUSCULOSKELETAL/RHEUMATOLOGICAL Hx Arthritis: Yes - GASTROINTESTINAL Hx Gastrointestinal Disorders: No - GENITOURINARY/GYNECOLOGICAL Hx Urinary Tract Infection: Yes - PSYCHIATRIC Hx Depression: Yes Hx Substance Use: No - SURGICAL HISTORY Hx Surgeries: Yes Other/Comment: Vasectomy 1968 - ANESTHESIA Hx Anesthesia: Yes Hx Anesthesia Reactions: No Hx Malignant Hyperthermia: No Meds Allergies/Adverse Reactions: Allergies Allergy/AdvReac Type Severity Reaction Status Date / Time camphor Allergy ITCHING Verified 10/26/17 21:06 menthol Allergy ITCHING Verified 10/26/17 21:06 eggs Allergy ITCHING Uncoded 10/26/17 21:06 Results - Vital Signs Recent Vital Signs: Last Vital Signs Temp 97.4 F L 01/13/18 14:57 Pulse 74 01/13/18 14:57 Resp 18 01/13/18 14:57 BP 136/84 01/13/18 14:57 Pulse Ox 99 01/13/18 14:57 - Labs Result Diagrams: 01/14/18 07:09 01/14/18 07:09 Labs: Laboratory Results - last 24 hr 01/13/18 01/13/18 01/13/18 11:12 11:12 11:12 WBC 14.3 H D RBC 4.10 L Hgb 10.5 L Hct 32.5 L MCV 79.1 L MCH 25.6 L MCHC 32.4 L RDW 17.8 H Plt Count 221 MPV 8.6 Neut % (Auto) 78.8 H Lymph % (Auto) 12.8 L [place] % (Auto) 6.1 Eos % (Auto) 2.0 Baso % (Auto) 0.3 Neut # (Auto) 11.3 H Lymph # (Auto) 1.8 [place] # (Auto) 0.9 H Eos # (Auto) 0.3 Baso # (Auto) 0.0 Sodium 147 Potassium 3.6 Chloride 106 Carbon Dioxide 24 Anion Gap 21 H BUN 31 H Creatinine 1.9 H Est GFR ( Amer) 41 Est GFR (Non-Af Amer) 34 Random Glucose 98 Calcium 9.1 Total Bilirubin 0.6 AST 26 ALT 24 Alkaline Phosphatase 95 Troponin I 0.0190 Total Protein 8.3 Albumin 4.3 Globulin 4.1 H Albumin/Globulin Ratio 1.1 Urine Color Urine Clarity Urine pH Ur Specific [place] Urine Protein Urine Glucose (UA) Urine Ketones Urine Blood Urine Nitrate Urine Bilirubin Urine Urobilinogen Ur Leukocyte Esterase Urine WBC (Auto) Urine RBC (Auto) Urine WBC Clumps (Auto) Hyaline Casts Salicylates < 1.0 01/13/18 12:35 WBC RBC Hgb Hct MCV MCH MCHC RDW Plt Count MPV Neut % (Auto) Lymph % (Auto) [place] % (Auto) Eos % (Auto) Baso % (Auto) Neut # (Auto) Lymph # (Auto) [place] # (Auto) Eos # (Auto) Baso # (Auto) Sodium Potassium Chloride Carbon Dioxide Anion Gap BUN Creatinine Est GFR ( Amer) Est GFR (Non-Af Amer) Random Glucose Calcium Total Bilirubin AST ALT Alkaline Phosphatase Troponin I Total Protein Albumin Globulin Albumin/Globulin Ratio Urine Color Porsha Urine Clarity Hazy Urine pH 5.0 Ur Specific [place] 1.017 Urine Protein 1+ H Urine Glucose (UA) 1+ H Urine Ketones 1+ H Urine Blood 2+ H Urine Nitrate Negative Urine Bilirubin Negative Urine Urobilinogen 2.0 Ur Leukocyte Esterase 3+ H Urine WBC (Auto) 331 H Urine RBC (Auto) 18 H Urine WBC Clumps (Auto) Mod H Hyaline Casts 3-5 H Salicylates
[2018-01-13 16:36] VITALS: RESP 20
[2018-01-13] MEDS: (Novolin R) Insulin Human Regular 100 units/ml vial SC SCH ×3 (16:57→21:41)
[2018-01-13] MEDS: Sodium Chloride 0.45% 1,000 ML IV SCH (17:13)
--- NOTE | 2018-01-13 17:13 | RAD ---
Date of service: 01/13/2018 PROCEDURE: CHEST RADIOGRAPH, 1 VIEW HISTORY: chest pain COMPARISON: Comparison is made with 10/26/2017 FINDINGS: LUNGS: No evidence of new infiltrate or consolidation in the lungs PLEURA: No pneumothorax or pleural fluid seen. CARDIOVASCULAR: Normal. OSSEOUS STRUCTURES: No significant abnormalities. VISUALIZED UPPER ABDOMEN: Normal. OTHER FINDINGS: None. IMPRESSION: No active disease.
[2018-01-14] MEDS: Sodium Chloride 0.45% 1,000 ML IV SCH (02:45)
[2018-01-14 07:23] LABS: BASO # 0.1 K/uL (0.0-0.2); BASO % 0.6 % (0.0-2.0); EOS # 0.5 K/uL (0.0-0.7); EOS % 5.5 % (0.0-4.0); HEMOGLOBIN 10.7 g/dL (12.0-18.0); LYMPH # 1.1 K/uL (1.0-4.3); LYMPH % 11.8 % (20.0-40.0); MEAN CORPUSCULAR HEMOGLOBIN 26.1 pg (27.0-31.0); MEAN PLATELET VOLUME 9.3 fL (7.2-11.7); MONO # 0.6 K/uL (0.0-0.8); MONO % 6.4 % (0.0-10.0); NEUT # 7.1 K/uL (1.8-7.0); NEUT % 75.7 % (50.0-75.0); RBC 4.08 Mil/uL (4.40-5.90); RED CELL DISTRIBUTION WIDTH 17.6 % (11.5-14.5); WHITE BLOOD COUNT 9.4 K/uL (4.8-10.8)
[2018-01-14] MEDS ORDERED: Dextrose 50% SYRINGE Inj (50 ml) ONE (07:52)
[2018-01-14] MEDS ORDERED: Dextrose 50% SYRINGE Inj (50 ml) IV STA (07:52)
--- NOTE | 2018-01-14 07:53 | CP.PCM.PCO ---
Physician Communication Note - Physician Communication Note Physician Communication Note: Pt was hypoglycemic this morning, due to NPO, D50 IVP was given
[2018-01-14 08:07] LABS: ALB/GLOB RATIO 1.1 (1.0-2.1); ALBUMIN 3.8 g/dL (3.5-5.0); ALT/SGPT 36 U/L (21-72); AST/SGOT 33 U/L (17-59); BLOOD UREA NITROGEN 24 mg/dL (9-20); CALCIUM 8.9 mg/dl (8.6-10.4); GFR NON-AFRICAN AMERICAN > 60
[2018-01-14] MEDS: (Novolin R) Insulin Human Regular 100 units/ml vial SC SCH ×3 (08:19→16:58)
[2018-01-14] MEDS: Enoxaparin 40 mg Syringe SC SCH (10:03)
[2018-01-14] MEDS: Dextrose 5%/0.45% NS 1,000 ML IV SCH ×2 (12:00→21:37)
--- NOTE | 2018-01-14 12:30 | CP.PCM.CON ---
History of Present Illness - History of Present Illness History of Present Illness: INFECTIOUS DISEASE CONSULT; HPI; 82-YEAR-OLD MALE WITH HISTORY OFF HYPERTENSION, CVA, ISCHEMIC 2 MONTHS AGO, HYPERCHOLESTEROLEMIA, HYPERLIPIDEMIA, ARTHRITIS, SEIZURES AND DEPRESSION WHO IS ADMITTED ON 01/13/18 BECAUSE OFF CONFUSION AND DISORIENTATION FOR ABOUT A WEEK PRIOR WHEN HE WAS IN [place]. PATIENT WAS ADMITTED IN THE HOSPITAL IN [place] AND DIAGNOSED WITH UTI. fAMILY NOW BRINGS HIM FOR SAME WITH MORE CONFUSION AND DISORIENTATION AND TALKING WITHOUT ANY SENSE. pATIENT HAS NO NEUROLOGICAL DEFICITS. CT OF THE HEAD SHOWED OLD cva AND MODERATE ATROPHY. PATIENT DENIES ANY DYSURIA BUT URINALYSIS SHOWED wbc OF 331 WITH RBC'S OF 18. mODERATE wbc CLUMPS WERE ALSO SEEN. pATIENT WAS EMPIRICALLY STARTED ON rOCEPHIN 1 G ONCE A DAY DAILY. PATIENT ALSO HAD LEUKOCYTOSIS OF 14.3 ON ADMISSION nO HISTORY OF FEVER OR CHILLS. INFECTIOUS DISEASE CONSULTATION THEREFORE BY PMD fOR SEPSIS MOST PROBABLE UROSEPSIS/Altered mental status. Denies history of headache or any seizure attack. RECENT TRAVEL TO [place].NO HISTORY OF ANY SICK CONTACTS PMH: Arthritis, CVA (Ischemic, 2 months ago.), Depression, HTN, Hypercholesterolemia, Hyperlipidemia, Seizures Denies: Chronic Kidney Disease Other Surgeries: Hx of surgeries Family History: States: No Known Family Hx - Social History Hx Tobacco Use: No Hx Alcohol Use: No Hx Substance Use: No - Immunization History Hx Tetanus Toxoid Vaccination: No Hx Influenza Vaccination: No Hx Pneumococcal Vaccination: No Allergy; camphor, menthol, eggs. Review of Systems - Review of Systems Systems not reviewed;Unavailable: Altered Mental Status Past Patient History - Past Medical History & Family History Past Medical History?: Yes - Past Social History Smoking Status: Never Smoked - CARDIAC Hx Hypercholesterolemia: Yes Hx Hypertension: Yes - PULMONARY Hx Respiratory Disorders: No - NEUROLOGICAL HX Cerebrovascular Accident: Yes (2 months ago) - HEENT Hx HEENT Problems: No - RENAL Hx Chronic Kidney Disease: No - ENDOCRINE/METABOLIC Hx Endocrine Disorders: Yes Hx Diabetes Mellitus Type 1: Yes - HEMATOLOGICAL/ONCOLOGICAL Hx Blood Disorders: No - INTEGUMENTARY Hx Dermatological Problems: Yes Other/Comment: Old 50-60 Yrs Old LFA Small Area Soft Skin. - MUSCULOSKELETAL/RHEUMATOLOGICAL Hx Arthritis: Yes - GASTROINTESTINAL Hx Gastrointestinal Disorders: No - GENITOURINARY/GYNECOLOGICAL Hx Genitourinary Disorders: Yes Hx Urinary Tract Infection: Yes - PSYCHIATRIC Hx Psychophysiologic Disorder: Yes Hx Depression: Yes Hx Substance Use: No - SURGICAL HISTORY Hx Surgeries: Yes Other/Comment: Vasectomy 1968 - ANESTHESIA Hx Anesthesia: Yes Hx Anesthesia Reactions: No Hx Malignant Hyperthermia: No Has any member of the family had a problem w/ anesthesia?: No Meds Allergies/Adverse Reactions: Allergies Allergy/AdvReac Type Severity Reaction Status Date / Time camphor Allergy ITCHING Verified 10/26/17 21:06 menthol Allergy ITCHING Verified 10/26/17 21:06 eggs Allergy ITCHING Uncoded 10/26/17 21:06 - Medications Medications: Current Medications Enoxaparin Sodium (Lovenox) 40 mg SC DAILY [facility] Last Admin: 01/14/18 10:03 Dose: 40 mg Cefepime HCl 1 gm/ Dextrose 50 mls @ 100 mls/hr IVPB Q12H [facility] PRN Reason: Protocol Last Admin: 01/14/18 10:04 Dose: 100 mls/hr Dextrose/Sodium Chloride (Dextrose 5%/0.45% Ns 1000 Ml) 1,000 mls @ 100 mls/hr IV .Q10H [facility] Last Admin: 01/14/18 12:00 Dose: 100 mls/hr Insulin Human Regular (Novolin R) 0 unit SC ACHS [facility] PRN Reason: Protocol Last Admin: 01/14/18 12:23 Dose: Not Given Physical Exam - Constitutional Appears: No Acute Distress - Head Exam Head Exam: NORMAL INSPECTION - Eye Exam Eye Exam: EOMI - ENT Exam ENT Exam: Mucous Membranes Moist - Neck Exam Neck exam: Positive for: Normal Inspection. Negative for: Meningismus - Respiratory Exam Respiratory Exam: NORMAL BREATHING PATTERN - Cardiovascular Exam Cardiovascular Exam: REGULAR RHYTHM, +S1, +S2 - GI/Abdominal Exam GI & Abdominal Exam: Normal Bowel Sounds, Soft - Extremities Exam Extremities exam: Positive for: pedal pulses present. Negative for: calf tenderness - Neurological Exam Neurological exam: Altered, CN II-XII Intact, Reflexes Normal - Psychiatric Exam Psychiatric exam: Normal Mood - Skin Skin Exam: Normal Color Results - Vital Signs Recent Vital Signs: Last Vital Signs Temp 98.4 F 01/14/18 07:05 Pulse 87 01/14/18 07:05 Resp 20 01/14/18 07:05 BP 145/72 01/14/18 07:05 Pulse Ox 95 01/14/18 07:05 - Labs Result Diagrams: 01/14/18 07:09 01/14/18 07:09 Labs: Laboratory Results - last 24 hr 01/13/18 01/14/18 01/14/18 12:35 07:09 07:09 WBC 9.4 RBC 4.08 L Hgb 10.7 L Hct 32.3 L MCV 79.0 L MCH 26.1 L MCHC 33.0 RDW 17.6 H Plt Count 223 MPV 9.3 Neut % (Auto) 75.7 H Lymph % (Auto) 11.8 L [place] % (Auto) 6.4 Eos % (Auto) 5.5 H Baso % (Auto) 0.6 Neut # (Auto) 7.1 H Lymph # (Auto) 1.1 [place] # (Auto) 0.6 Eos # (Auto) 0.5 Baso # (Auto) 0.1 Sodium 142 Potassium 3.6 Chloride 104 Carbon Dioxide 23 Anion Gap 18 BUN 24 H Creatinine 1.0 Est GFR ( Amer) > 60 Est GFR (Non-Af Amer) > 60 POC Glucose (mg/dL) Random Glucose 80 Calcium 8.9 Total Bilirubin 0.5 AST 33 ALT 36 Alkaline Phosphatase 92 Total Protein 7.1 Albumin 3.8 Globulin 3.3 Albumin/Globulin Ratio 1.1 Prostate Specific Ag 4.69 H Urine Color Porsha Urine Clarity Hazy Urine pH 5.0 Ur Specific [place] 1.017 Urine Protein 1+ H Urine Glucose (UA) 1+ H Urine Ketones 1+ H Urine Blood 2+ H Urine Nitrate Negative Urine Bilirubin Negative Urine Urobilinogen 2.0 Ur Leukocyte Esterase 3+ H Urine WBC (Auto) 331 H Urine RBC (Auto) 18 H Urine WBC Clumps (Auto) Mod H Hyaline Casts 3-5 H 01/14/18 01/14/18 01/14/18 07:35 07:37 08:19 WBC RBC Hgb Hct MCV MCH MCHC RDW Plt Count MPV Neut % (Auto) Lymph % (Auto) [place] % (Auto) Eos % (Auto) Baso % (Auto) Neut # (Auto) Lymph # (Auto) [place] # (Auto) Eos # (Auto) Baso # (Auto) Sodium Potassium Chloride Carbon Dioxide Anion Gap BUN Creatinine Est GFR ( Amer) Est GFR (Non-Af Amer) POC Glucose (mg/dL) 63 L 64 L 181 H Random Glucose Calcium Total Bilirubin AST ALT Alkaline Phosphatase Total Protein Albumin Globulin Albumin/Globulin Ratio Prostate Specific Ag Urine Color Urine Clarity Urine pH Ur Specific [place] Urine Protein Urine Glucose (UA) Urine Ketones Urine Blood Urine Nitrate Urine Bilirubin Urine Urobilinogen Ur Leukocyte Esterase Urine WBC (Auto) Urine RBC (Auto) Urine WBC Clumps (Auto) Hyaline Casts - Imaging and Cardiology CT scan - abdomen Status: Report reviewed by me ([id number] diffuse urinary bladder wall thickening And mild prostatitis.) Assessment & Plan (1) UTI (urinary tract infection) Assessment and Plan: DC IV Rocephin *Cefepime 1 g every 12 hourly for broader gram-negative coverage /suspect ESBL Escherichia coli or Klebsiella pneumoniae.01/13/18 Follow-up cultures to adjust antibiotics. Follow-up PSA. Presently patient denies any dysuria, hematuria or hesitancy. Status: Acute (2) Dementia Assessment and Plan: Patient has history of forgetfulness and dementia. Altered mental status /questionable delirium secondary to sepsis. Status: Acute (3) Diabetes Assessment and Plan: patient had an episode of hypoglycemia this a.m. Monitor blood sugars closely. PMD aware. Status: Acute (4) Memory disturbance Status: Acute
--- NOTE | 2018-01-14 12:47 | CP.PCM.PN ---
Subjective - Date & Time of Evaluation Date of Evaluation: 01/14/18 Time of Evaluation: 12:46 - Subjective Subjective: patient remains lethargic excessive sleeping. Vital signs are stable afebrile Physical examination remains unchanged. Septic workup is in progress. Patient had hypoglycemia this a.m. responded with D50 IV change to D5 half normal. Patient is nothing by mouth as patient has failed swallowing test. Objective - Vital Signs/Intake and Output Vital Signs (last 24 hours): Temp Pulse Resp BP Pulse Ox 98.4 F 87 20 145/72 95 01/14/18 07:05 01/14/18 07:05 01/14/18 07:05 01/14/18 07:05 01/14/18 07:05 - Medications Medications: Current Medications Enoxaparin Sodium (Lovenox) 40 mg SC DAILY [facility] Last Admin: 01/14/18 10:03 Dose: 40 mg Cefepime HCl 1 gm/ Dextrose 50 mls @ 100 mls/hr IVPB Q12H [facility] PRN Reason: Protocol Last Admin: 01/14/18 10:04 Dose: 100 mls/hr Dextrose/Sodium Chloride (Dextrose 5%/0.45% Ns 1000 Ml) 1,000 mls @ 100 mls/hr IV .Q10H [facility] Last Admin: 01/14/18 12:00 Dose: 100 mls/hr Insulin Human Regular (Novolin R) 0 unit SC ACHS [facility] PRN Reason: Protocol Last Admin: 01/14/18 12:23 Dose: Not Given - Labs Labs: 01/14/18 07:09 01/14/18 07:09
--- NOTE | 2018-01-14 23:16 | CARD ---
APPROVED REPORT Date of service: 01/13/2018 EKG Measurement Heart [id number] <Conclusion> Sinus rhythm with short TX Nonspecific ST and T wave abnormality Abnormal ECG
[2018-01-15 07:12] LABS: BASO # 0.1 K/uL (0.0-0.2); BASO % 0.9 % (0.0-2.0); EOS # 0.4 K/uL (0.0-0.7); EOS % 6.6 % (0.0-4.0); HEMOGLOBIN 10.7 g/dL (12.0-18.0); LYMPH # 1.3 K/uL (1.0-4.3); LYMPH % 20.6 % (20.0-40.0); MEAN CELL VOLUME 78.3 fL (80.0-94.0); MEAN CORPUSCULAR HEMOGLOBIN 26.2 pg (27.0-31.0); MEAN CORPUSCULAR HGB CONC 33.4 g/dL (33.0-37.0); MEAN PLATELET VOLUME 9.2 fL (7.2-11.7); MONO # 0.6 K/uL (0.0-0.8); MONO % 10.2 % (0.0-10.0); NEUT # 3.8 K/uL (1.8-7.0); NEUT % 61.7 % (50.0-75.0); NRBC % 0.1 % (0.0-2.0); RBC 4.07 Mil/uL (4.40-5.90); RED CELL DISTRIBUTION WIDTH 17.6 % (11.5-14.5); WHITE BLOOD COUNT 6.2 K/uL (4.8-10.8)
[2018-01-15 07:34] LABS: ALB/GLOB RATIO 1.1 (1.0-2.1); ALBUMIN 3.7 g/dL (3.5-5.0); ALT/SGPT 34 U/L (21-72); AST/SGOT 27 U/L (17-59); BLOOD UREA NITROGEN 16 mg/dL (9-20); CALCIUM 9.1 mg/dl (8.6-10.4); GFR NON-AFRICAN AMERICAN > 60
[2018-01-15] MEDS: Dextrose 5%/0.45% NS 1,000 ML IV SCH ×3 (07:35→22:00)
[2018-01-15] MEDS: (Novolin R) Insulin Human Regular 100 units/ml vial SC SCH ×4 (08:20→21:41)
[2018-01-15] MEDS: Enoxaparin 40 mg Syringe SC SCH (10:43)
[2018-01-15] MEDS: Aspirin 325 mg EC Tablets PO SCH (13:00)
--- NOTE | 2018-01-15 14:14 | CP.PCM.PN ---
Subjective - Date & Time of Evaluation Date of Evaluation: 01/15/18 Time of Evaluation: 14:13 - Subjective Subjective: Patient is more alert and awake but still has periods of confusion. Vital signs are stable afebrile Physical examination remains unchanged. The labs so far urine culture and blood cultures are negative. Patient has a history of recently prolonged IV by mouth antibiotics. Continue IV antibiotics and supportive care. Objective - Vital Signs/Intake and Output Vital Signs (last 24 hours): Temp Pulse Resp BP Pulse Ox 97.8 F 71 20 156/71 H 98 01/15/18 08:29 01/15/18 08:29 01/15/18 08:29 01/15/18 08:29 01/15/18 08:29 Intake and Output: 01/15/18 01/15/18 11:59 23:59 Intake Total 980 Balance 980 - Medications Medications: Current Medications Aspirin (Ecotrin) 325 mg PO DAILY [facility] Last Admin: 01/15/18 13:00 Dose: 325 mg Enoxaparin Sodium (Lovenox) 40 mg SC DAILY [facility] Last Admin: 01/15/18 10:43 Dose: 40 mg Famotidine (Pepcid) 20 mg PO DAILY [facility] Last Admin: 01/15/18 13:00 Dose: 20 mg Cefepime HCl 1 gm/ Dextrose 50 mls @ 100 mls/hr IVPB Q12H [facility] PRN Reason: Protocol Last Admin: 01/15/18 10:43 Dose: 100 mls/hr Dextrose/Sodium Chloride (Dextrose 5%/0.45% Ns 1000 Ml) 1,000 mls @ 70 mls/hr IV .[id number] [facility] Last Admin: 01/15/18 12:30 Dose: 70 mls/hr Insulin Human Regular (Novolin R) 0 unit SC ACHS [facility] PRN Reason: Protocol Last Admin: 01/15/18 12:01 Dose: Not Given Losartan Potassium (Cozaar) 25 mg PO DAILY [facility] Last Admin: 01/15/18 13:00 Dose: 25 mg Quetiapine Fumarate (Seroquel) 25 mg PO DAILY [facility] Last Admin: 01/15/18 13:00 Dose: 25 mg - Labs Labs: 01/15/18 06:58 01/15/18 06:58
--- NOTE | 2018-01-15 22:31 | CP.PCM.PN ---
Subjective - Date & Time of Evaluation Date of Evaluation: 01/15/18 Time of Evaluation: 22:31 - Subjective Subjective: afebrile, vss Awake but confused at times. Recognizes his relatives. Appetite fair as per SURVEYOR ROD HELPER. Incontinent at times of urine discussed with family labs reviewed. PSA 4.69 ELEVATED. ALL CULTURES NEGATIVE TO DATE Objective - Vital Signs/Intake and Output Vital Signs (last 24 hours): Temp Pulse Resp BP Pulse Ox 97.7 F 90 20 150/72 99 01/15/18 15:00 01/15/18 15:00 01/15/18 15:00 01/15/18 15:00 01/15/18 15:00 Intake and Output: 01/15/18 01/16/18 18:59 06:59 Intake Total 1085 Balance 1085 - Medications Medications: Current Medications Aspirin (Ecotrin) 325 mg PO DAILY [facility] Last Admin: 01/15/18 13:00 Dose: 325 mg Enoxaparin Sodium (Lovenox) 40 mg SC DAILY [facility] Last Admin: 01/15/18 10:43 Dose: 40 mg Famotidine (Pepcid) 20 mg PO DAILY [facility] Last Admin: 01/15/18 13:00 Dose: 20 mg Cefepime HCl 1 gm/ Dextrose 50 mls @ 100 mls/hr IVPB Q12H [facility] PRN Reason: Protocol Last Admin: 01/15/18 21:56 Dose: 100 mls/hr Dextrose/Sodium Chloride (Dextrose 5%/0.45% Ns 1000 Ml) 1,000 mls @ 70 mls/hr IV .[id number] [facility] Last Admin: 01/15/18 22:00 Dose: 70 mls/hr Insulin Human Regular (Novolin R) 0 unit SC ACHS [facility] PRN Reason: Protocol Last Admin: 01/15/18 21:41 Dose: Not Given Losartan Potassium (Cozaar) 25 mg PO DAILY [facility] Last Admin: 01/15/18 13:00 Dose: 25 mg Quetiapine Fumarate (Seroquel) 25 mg PO DAILY [facility] Last Admin: 01/15/18 13:00 Dose: 25 mg - Labs Labs: 01/15/18 06:58 01/15/18 06:58 - Constitutional Appears: No Acute Distress, Confused - Head Exam Head Exam: NORMAL INSPECTION - Eye Exam Eye Exam: EOMI, PERRL - ENT Exam ENT Exam: Normal Oropharynx - Neck Exam Neck Exam: Normal Inspection. absent: Meningismus, Thyromegaly - Respiratory Exam Respiratory Exam: Clear to Ausculation Bilateral - Cardiovascular Exam Cardiovascular Exam: REGULAR RHYTHM, +S1, +S2 - GI/Abdominal Exam GI & Abdominal Exam: Soft, Normal Bowel Sounds - Extremities Exam Extremities Exam: absent: Calf Tenderness, Pedal Edema - Neurological Exam Neurological Exam: Altered, Awake, CN II-XII Intact - Psychiatric Exam Psychiatric exam: Flat Affect - Skin Skin Exam: Normal Color, Warm Assessment and Plan (1) UTI (urinary tract infection) Assessment & Plan: * ON IV Cefepime 1 g every 12 hourly for broader gram-negative coverage 01/13/18. ALL CULTURES NEGATIVE TO DATE.WAS PROBABLE PARTIALLY TREATED UTI VS PROSTATITIS PATIENT WAS ON ANTIBIOTICS IN [place]. PATIENT HAS PYURIA. WILL REPEAT ua URINE CULTURE. dISCUSSED WITH FAMILY AT BEDSIDE. Status: Acute (2) Dementia Assessment & Plan: PATIENT HAS HISTORY OF MILD DEMENTIA. bUT CONDITION WORSENED AFTER HIS TRIP TO [place] ? DELIRIUM VS PTSD. CONSIDER PSYCHE EVALUATION. Status: Acute (3) Diabetes Status: Acute (4) Memory disturbance Status: Acute
[2018-01-16 07:43] LABS: BASO # 0.1 K/uL (0.0-0.2); BASO % 2.4 % (0.0-2.0); EOS # 0.3 K/uL (0.0-0.7); EOS % 6.3 % (0.0-4.0); HEMOGLOBIN 11.9 g/dL (12.0-18.0); LYMPH # 1.2 K/uL (1.0-4.3); LYMPH % 23.7 % (20.0-40.0); MEAN CELL VOLUME 79.4 fL (80.0-94.0); MEAN CORPUSCULAR HEMOGLOBIN 26.1 pg (27.0-31.0); MEAN CORPUSCULAR HGB CONC 32.9 g/dL (33.0-37.0); MEAN PLATELET VOLUME 9.7 fL (7.2-11.7); MONO # 0.6 K/uL (0.0-0.8); MONO % 11.1 % (0.0-10.0); NEUT # 2.9 K/uL (1.8-7.0); NEUT % 56.5 % (50.0-75.0); RBC 4.54 Mil/uL (4.40-5.90); RED CELL DISTRIBUTION WIDTH 17.9 % (11.5-14.5); WHITE BLOOD COUNT 5.1 K/uL (4.8-10.8)
[2018-01-16 07:57] LABS: ALB/GLOB RATIO 1.1 (1.0-2.1); ALBUMIN 4.2 g/dL (3.5-5.0); ALT/SGPT 37 U/L (21-72); AST/SGOT 27 U/L (17-59); BLOOD UREA NITROGEN 12 mg/dL (9-20); CALCIUM 9.7 mg/dl (8.6-10.4); GFR NON-AFRICAN AMERICAN > 60
[2018-01-16] MEDS: Aspirin 325 mg EC Tablets PO SCH (09:50)
[2018-01-16] MEDS: Enoxaparin 40 mg Syringe SC SCH (09:51)
[2018-01-16] MEDS: (Novolin R) Insulin Human Regular 100 units/ml vial SC SCH ×4 (09:52→21:30)
--- NOTE | 2018-01-16 14:02 | CP.PCM.PN ---
Subjective - Date & Time of Evaluation Date of Evaluation: 01/16/18 Time of Evaluation: 14:01 - Subjective Subjective: Patient is more alert and awake but still has periods of confusion. Vital signs are stable afebrile Physical examination remains unchanged. The labs so far urine culture and blood cultures are negative. Patient has a history of recently prolonged IV by mouth antibiotics. Continue IV antibiotics and supportive care. psychiatric consult to evaluate further medications as patient is continue agitated and disoriented Objective - Vital Signs/Intake and Output Vital Signs (last 24 hours): Temp Pulse Resp BP Pulse Ox 98.2 F 89 20 169/95 H 96 01/16/18 07:00 01/16/18 07:00 01/16/18 07:00 01/16/18 07:00 01/16/18 07:00 Intake and Output: 01/16/18 01/16/18 11:59 23:59 Intake Total 760 Balance 760 - Medications Medications: Current Medications Aspirin (Ecotrin) 325 mg PO DAILY [facility] Last Admin: 01/16/18 09:50 Dose: 325 mg Enoxaparin Sodium (Lovenox) 40 mg SC DAILY [facility] Last Admin: 01/16/18 09:51 Dose: 40 mg Famotidine (Pepcid) 20 mg PO DAILY [facility] Last Admin: 01/16/18 09:50 Dose: 20 mg Haloperidol (Haldol) 0.5 mg PO Q6H PRN PRN Reason: Agitation Insulin Human Regular (Novolin R) 0 unit SC [facility] PRN Reason: Protocol Last Admin: 01/16/18 12:18 Dose: Not Given Losartan Potassium (Cozaar) 25 mg PO DAILY [facility] Last Admin: 01/16/18 09:50 Dose: 25 mg Quetiapine Fumarate (Seroquel) 25 mg PO HS [facility] - Labs Labs: 01/16/18 07:21 01/16/18 07:21
--- NOTE | 2018-01-16 21:43 | CP.PCM.PN ---
Subjective - Date & Time of Evaluation Date of Evaluation: 01/16/18 Time of Evaluation: 21:43 - Subjective Subjective: afebrile, vss Awake but confused at times. Recognizes his relatives. Appetite fair as per QUILT MAKER. Incontinent at times of urine IV INFILTRATED.PT PULLING IV LINES discussed with family labs reviewed. PSA 4.69 ELEVATED. ALL CULTURES NEGATIVE TO DATE DISCUSSED WITH BALLOON DESIGN PRINTER MS LORENZ NEEDS PSYCH EVALUATION. DELIRIUM VS PTSD AFTER COMING BACK FROM [place] /VS SEPSIS DC ABX AND OBSERVE FEVER CURVE. Objective - Vital Signs/Intake and Output Vital Signs (last 24 hours): Temp Pulse Resp BP Pulse Ox 98.5 F 84 20 106/64 95 01/16/18 16:00 01/16/18 16:00 01/16/18 16:00 01/16/18 16:00 01/16/18 16:00 - Medications Medications: Current Medications Aspirin (Ecotrin) 325 mg PO DAILY [facility] Last Admin: 01/16/18 09:50 Dose: 325 mg Enoxaparin Sodium (Lovenox) 40 mg SC DAILY [facility] Last Admin: 01/16/18 09:51 Dose: 40 mg Famotidine (Pepcid) 20 mg PO DAILY [facility] Last Admin: 01/16/18 09:50 Dose: 20 mg Haloperidol (Haldol) 0.5 mg PO Q6H PRN PRN Reason: Agitation Insulin Human Regular (Novolin R) 0 unit SC [facility] PRN Reason: Protocol Last Admin: 01/16/18 21:30 Dose: Not Given Lorazepam (Ativan) 1 mg IM Q6H PRN PRN Reason: Anxiety Last Admin: 01/16/18 15:54 Dose: 1 mg Losartan Potassium (Cozaar) 25 mg PO DAILY [facility] Last Admin: 01/16/18 09:50 Dose: 25 mg Quetiapine Fumarate (Seroquel) 25 mg PO HS [facility] Last Admin: 01/16/18 21:34 Dose: 25 mg - Labs Labs: 01/16/18 07:21 01/16/18 07:21 - Constitutional Appears: No Acute Distress, Agitated (AT TIMES.), Confused - Head Exam Head Exam: NORMAL INSPECTION - Eye Exam Eye Exam: EOMI, PERRL - ENT Exam ENT Exam: Normal Oropharynx - Neck Exam Neck Exam: Normal Inspection - Respiratory Exam Respiratory Exam: Clear to Ausculation Bilateral - Cardiovascular Exam Cardiovascular Exam: REGULAR RHYTHM, +S1, +S2 - GI/Abdominal Exam GI & Abdominal Exam: Soft, Normal Bowel Sounds - Extremities Exam Extremities Exam: absent: Calf Tenderness, Pedal Edema - Neurological Exam Neurological Exam: Awake, CN II-XII Intact, Normal Gait, Reflexes Normal - Psychiatric Exam Psychiatric exam: Agitated - Skin Skin Exam: Normal Color, Warm Assessment and Plan (1) UTI (urinary tract infection) Status: Acute (2) Dementia Status: Acute (3) Diabetes Status: Acute (4) Memory disturbance Status: Acute
[2018-01-17] MEDS: (Novolin R) Insulin Human Regular 100 units/ml vial SC SCH ×4 (08:26→21:37)
[2018-01-17 08:35] LABS: BASO # 0.1 K/uL (0.0-0.2); BASO % 1.4 % (0.0-2.0); EOS # 0.2 K/uL (0.0-0.7); HEMOGLOBIN 11.6 g/dL (12.0-18.0); LYMPH # 1.6 K/uL (1.0-4.3); LYMPH % 26.6 % (20.0-40.0); MEAN CORPUSCULAR HEMOGLOBIN 26.2 pg (27.0-31.0); MEAN CORPUSCULAR HGB CONC 33.2 g/dL (33.0-37.0); MEAN PLATELET VOLUME 9.1 fL (7.2-11.7); MONO # 0.7 K/uL (0.0-0.8); MONO % 11.7 % (0.0-10.0); NEUT # 3.3 K/uL (1.8-7.0); NEUT % 56.3 % (50.0-75.0); RBC 4.42 Mil/uL (4.40-5.90); RED CELL DISTRIBUTION WIDTH 17.7 % (11.5-14.5); WHITE BLOOD COUNT 5.9 K/uL (4.8-10.8)
[2018-01-17 09:11] LABS: ALB/GLOB RATIO 1.1 (1.0-2.1); ALBUMIN 3.8 g/dL (3.5-5.0); ALT/SGPT 30 U/L (21-72); AST/SGOT 24 U/L (17-59); BLOOD UREA NITROGEN 18 mg/dL (9-20); CALCIUM 9.3 mg/dl (8.6-10.4); GFR NON-AFRICAN AMERICAN 53
[2018-01-17] MEDS: Enoxaparin 40 mg Syringe SC SCH (11:00)
[2018-01-17] MEDS: Aspirin 325 mg EC Tablets PO SCH (11:00)
--- NOTE | 2018-01-17 13:57 | CP.PCM.PN ---
Subjective - Date & Time of Evaluation Date of Evaluation: 01/17/18 Time of Evaluation: 13:56 - Subjective Subjective: psychiatric has still not evaluated the patient Patient is more alert and awake but still has periods of confusion. Vital signs are stable afebrile Physical examination remains unchanged. The labs so far urine culture and blood cultures are negative. Patient has a history of recently prolonged IV by mouth antibiotics. Continue IV antibiotics and supportive care. psychiatric consult to evaluate further medications as patient is continue agitated and disoriented add Xanax. Objective - Vital Signs/Intake and Output Vital Signs (last 24 hours): Temp Pulse Resp BP Pulse Ox 98.4 F 83 20 144/74 96 01/17/18 08:46 01/17/18 08:46 01/17/18 08:46 01/17/18 08:46 01/17/18 08:46 - Medications Medications: Current Medications Aspirin (Ecotrin) 325 mg PO DAILY [facility] Last Admin: 01/17/18 11:00 Dose: 325 mg Enoxaparin Sodium (Lovenox) 40 mg SC DAILY [facility] Last Admin: 01/17/18 11:00 Dose: Not Given Famotidine (Pepcid) 20 mg PO DAILY [facility] Last Admin: 01/17/18 11:00 Dose: 20 mg Haloperidol (Haldol) 0.5 mg PO Q6H PRN PRN Reason: Agitation Insulin Human Regular (Novolin R) 0 unit SC [facility] PRN Reason: Protocol Last Admin: 01/17/18 11:00 Dose: Not Given Lorazepam (Ativan) 1 mg IM Q6H PRN PRN Reason: Anxiety Last Admin: 01/16/18 15:54 Dose: 1 mg Losartan Potassium (Cozaar) 25 mg PO DAILY [facility] Last Admin: 01/17/18 11:00 Dose: 25 mg Quetiapine Fumarate (Seroquel) 25 mg PO HS [facility] Last Admin: 01/16/18 21:34 Dose: 25 mg - Labs Labs: 01/17/18 08:27 01/17/18 08:27
[2018-01-18] MEDS: (Novolin R) Insulin Human Regular 100 units/ml vial SC SCH ×4 (07:41→21:52)
[2018-01-18 08:14] LABS: BASO # 0.1 K/uL (0.0-0.2); BASO % 0.9 % (0.0-2.0); EOS # 0.4 K/uL (0.0-0.7); EOS % 6.1 % (0.0-4.0); HEMOGLOBIN 11.2 g/dL (12.0-18.0); LYMPH # 1.4 K/uL (1.0-4.3); LYMPH % 21.2 % (20.0-40.0); MEAN CELL VOLUME 79.2 fL (80.0-94.0); MEAN CORPUSCULAR HEMOGLOBIN 26.1 pg (27.0-31.0); MEAN PLATELET VOLUME 9.5 fL (7.2-11.7); MONO # 0.7 K/uL (0.0-0.8); MONO % 10.1 % (0.0-10.0); NEUT # 4.2 K/uL (1.8-7.0); NEUT % 61.7 % (50.0-75.0); RBC 4.28 Mil/uL (4.40-5.90); RED CELL DISTRIBUTION WIDTH 17.4 % (11.5-14.5); WHITE BLOOD COUNT 6.7 K/uL (4.8-10.8)
[2018-01-18 08:37] LABS: ALB/GLOB RATIO 1.1 (1.0-2.1); ALBUMIN 3.8 g/dL (3.5-5.0); ALT/SGPT 34 U/L (21-72); AST/SGOT 29 U/L (17-59); BLOOD UREA NITROGEN 20 mg/dL (9-20); CALCIUM 9.3 mg/dl (8.6-10.4); GFR NON-AFRICAN AMERICAN > 60
[2018-01-18] MEDS: Aspirin 325 mg EC Tablets PO SCH (10:07)
[2018-01-18] MEDS: Enoxaparin 40 mg Syringe SC SCH (10:07)
--- NOTE | 2018-01-18 12:13 | CP.PCM.PN ---
Subjective - Date & Time of Evaluation Date of Evaluation: 01/18/18 Time of Evaluation: 12:00 - Subjective Subjective: BILLET SAWYER NOTES Patient seen today, awake, alert, confused and delirious and agitated, family member at bed side a febrile labs this am reviewed- no significant abnormalities noted Blood culture - negative Off antibiotics D/W Dr. Felder , as per Dr. Felder pt has underline dementia and delirious, not psychotic episode treat the underlying problems and recommends to start on Depakote low dose and haldol PRN and neurology consult for dementia work up The above plan discussed with Dr. Cisneros and Dr. Maldonado called for neurology consult Objective - Vital Signs/Intake and Output Vital Signs (last 24 hours): Temp Pulse Resp BP Pulse Ox 98.4 F 79 20 157/61 H 98 01/18/18 07:37 01/18/18 07:37 01/18/18 07:37 01/18/18 07:37 01/18/18 07:37 Intake and Output: 01/18/18 01/18/18 06:59 18:59 Intake Total 350 Balance 350 - Medications Medications: Current Medications Alprazolam (Xanax) 0.25 mg PO TID PRN PRN Reason: Anxiety Stop: 01/24/18 13:58 Aspirin (Ecotrin) 325 mg PO DAILY [facility] Last Admin: 01/18/18 10:07 Dose: 325 mg Divalproex Sodium (Depakote Sprinkles) 125 mg PO DAILY [facility] Enoxaparin Sodium (Lovenox) 40 mg SC DAILY [facility] Last Admin: 01/18/18 10:07 Dose: 40 mg Famotidine (Pepcid) 20 mg PO DAILY [facility] Last Admin: 01/18/18 10:07 Dose: 20 mg Haloperidol (Haldol) 0.5 mg PO Q6H PRN PRN Reason: Agitation Insulin Human Regular (Novolin R) 0 unit SC ACHS [facility] PRN Reason: Protocol Last Admin: 01/18/18 11:37 Dose: Not Given Losartan Potassium (Cozaar) 25 mg PO DAILY [facility] Last Admin: 01/18/18 10:07 Dose: 25 mg Quetiapine Fumarate (Seroquel) 25 mg PO HS [facility] Last Admin: 01/17/18 21:37 Dose: Not Given - Labs Labs: 01/18/18 08:05 01/18/18 08:05
--- NOTE | 2018-01-18 12:37 | CP.PCM.PCO ---
Physician Communication Note - Physician Communication Note Physician Communication Note: Cloud Services Architect discussed treatment options with his PAs
--- NOTE | 2018-01-18 13:43 | CP.PCM.PN ---
Subjective - Date & Time of Evaluation Date of Evaluation: 01/18/18 Time of Evaluation: 13:41 - Subjective Subjective: patient is alert awake in no distress Patient is excessively agitated and repetitious speech Physical examination is normal neurologically patient is intact Patient also get aggressive and spit on staff Psychiatric was consulted and outlined the therapy. Also get a neuro evaluation. Objective - Vital Signs/Intake and Output Vital Signs (last 24 hours): Temp Pulse Resp BP Pulse Ox 98.4 F 79 20 157/61 H 98 01/18/18 07:37 01/18/18 07:37 01/18/18 07:37 01/18/18 07:37 01/18/18 07:37 Intake and Output: 01/18/18 01/18/18 11:59 23:59 Intake Total 150 Balance 150 - Medications Medications: Current Medications Alprazolam (Xanax) 0.25 mg PO TID PRN PRN Reason: Anxiety Stop: 01/24/18 13:58 Aspirin (Ecotrin) 325 mg PO DAILY [facility] Last Admin: 01/18/18 10:07 Dose: 325 mg Divalproex Sodium (Depakote Sprinkles) 125 mg PO BID [facility] Enoxaparin Sodium (Lovenox) 40 mg SC DAILY [facility] Last Admin: 01/18/18 10:07 Dose: 40 mg Famotidine (Pepcid) 20 mg PO DAILY [facility] Last Admin: 01/18/18 10:07 Dose: 20 mg Haloperidol (Haldol) 0.5 mg PO Q6H PRN PRN Reason: Agitation Insulin Human Regular (Novolin R) 0 unit SC ACHS [facility] PRN Reason: Protocol Last Admin: 01/18/18 11:37 Dose: Not Given Losartan Potassium (Cozaar) 25 mg PO DAILY [facility] Last Admin: 01/18/18 10:07 Dose: 25 mg Quetiapine Fumarate (Seroquel) 25 mg PO HS [facility] Last Admin: 01/17/18 21:37 Dose: Not Given - Labs Labs: 01/18/18 08:05 01/18/18 08:05
[2018-01-18] MEDS ORDERED: Divalproex 125 mg Sprinkle Capsule PO SCH (14:00)
[2018-01-18] MEDS: Divalproex 125 mg Sprinkle Capsule PO SCH (19:54)
--- NOTE | 2018-01-18 20:43 | CP.PCM.PN ---
Subjective - Date & Time of Evaluation Date of Evaluation: 01/18/18 Time of Evaluation: 20:43 Objective - Vital Signs/Intake and Output Vital Signs (last 24 hours): Temp Pulse Resp BP Pulse Ox 98.1 F 87 20 144/65 100 01/18/18 16:00 01/18/18 16:00 01/18/18 16:00 01/18/18 16:00 01/18/18 16:00 Intake and Output: 01/18/18 01/19/18 18:59 06:59 Intake Total 250 Balance 250 - Medications Medications: Current Medications Alprazolam (Xanax) 0.25 mg PO TID PRN PRN Reason: Anxiety Stop: 01/24/18 13:58 Aspirin (Ecotrin) 325 mg PO DAILY [facility] Last Admin: 01/18/18 10:07 Dose: 325 mg Divalproex Sodium (Depakote Sprinkles) 125 mg PO BID [facility] Last Admin: 01/18/18 19:54 Dose: Not Given Enoxaparin Sodium (Lovenox) 40 mg SC DAILY [facility] Last Admin: 01/18/18 10:07 Dose: 40 mg Famotidine (Pepcid) 20 mg PO DAILY [facility] Last Admin: 01/18/18 10:07 Dose: 20 mg Haloperidol (Haldol) 0.5 mg PO Q6H PRN PRN Reason: Agitation Insulin Human Regular (Novolin R) 0 unit SC ACHS [facility] PRN Reason: Protocol Last Admin: 01/18/18 11:37 Dose: Not Given Losartan Potassium (Cozaar) 25 mg PO DAILY [facility] Last Admin: 01/18/18 10:07 Dose: 25 mg Quetiapine Fumarate (Seroquel) 25 mg PO HS [facility] Last Admin: 01/17/18 21:37 Dose: Not Given - Labs Labs: 01/18/18 08:05 01/18/18 08:05 Assessment and Plan (1) UTI (urinary tract infection) Status: Acute (2) Dementia Status: Acute (3) Diabetes Status: Acute (4) Memory disturbance Status: Acute
[2018-01-19] MEDS: (Novolin R) Insulin Human Regular 100 units/ml vial SC SCH ×4 (08:09→21:49)
[2018-01-19 08:38] LABS: BASO # 0.1 K/uL (0.0-0.2); BASO % 1.1 % (0.0-2.0); EOS # 0.5 K/uL (0.0-0.7); EOS % 6.7 % (0.0-4.0); HEMOGLOBIN 11.1 g/dL (12.0-18.0); LYMPH # 1.9 K/uL (1.0-4.3); LYMPH % 26.5 % (20.0-40.0); MEAN CELL VOLUME 80.3 fL (80.0-94.0); MEAN CORPUSCULAR HEMOGLOBIN 25.8 pg (27.0-31.0); MEAN CORPUSCULAR HGB CONC 32.2 g/dL (33.0-37.0); MEAN PLATELET VOLUME 9.2 fL (7.2-11.7); MONO # 0.7 K/uL (0.0-0.8); MONO % 9.9 % (0.0-10.0); NEUT # 3.9 K/uL (1.8-7.0); NEUT % 55.8 % (50.0-75.0); RBC 4.3 Mil/uL (4.40-5.90); RED CELL DISTRIBUTION WIDTH 17.7 % (11.5-14.5); WHITE BLOOD COUNT 7.1 K/uL (4.8-10.8)
[2018-01-19 08:56] LABS: ALB/GLOB RATIO 1.1 (1.0-2.1); ALBUMIN 3.9 g/dL (3.5-5.0); ALT/SGPT 30 U/L (21-72); AST/SGOT 41 U/L (17-59); BLOOD UREA NITROGEN 25 mg/dL (9-20); CALCIUM 9.7 mg/dl (8.6-10.4); GFR NON-AFRICAN AMERICAN > 60
[2018-01-19] MEDS: Aspirin 325 mg EC Tablets PO SCH (10:21)
[2018-01-19] MEDS: Enoxaparin 40 mg Syringe SC SCH (10:21)
[2018-01-19] MEDS: Divalproex 125 mg Sprinkle Capsule PO SCH ×2 (10:22→18:20)
--- NOTE | 2018-01-19 14:17 | CP.PCM.PN ---
Subjective - Date & Time of Evaluation Date of Evaluation: 01/19/18 Time of Evaluation: 14:17 - Subjective Subjective: patient is alert awake in no distress Patient is excessively agitated and repetitious speech Physical examination is normal neurologically patient is intact Patient also get aggressive and spit on staff Psychiatric was consulted and outlined the therapy. Also get a neuro evaluation. Objective - Vital Signs/Intake and Output Vital Signs (last 24 hours): Temp Pulse Resp BP Pulse Ox 99 F 88 20 145/70 100 01/19/18 08:04 01/19/18 08:04 01/19/18 08:04 01/19/18 08:04 01/19/18 08:04 Intake and Output: 01/19/18 01/19/18 11:59 23:59 Intake Total 120 Output Total 0 Balance 120 - Medications Medications: Current Medications Alprazolam (Xanax) 0.25 mg PO TID PRN PRN Reason: Anxiety Stop: 01/24/18 13:58 Aspirin (Ecotrin) 325 mg PO DAILY [facility] Last Admin: 01/19/18 10:21 Dose: 325 mg Divalproex Sodium (Depakote Sprinkles) 125 mg PO BID [facility] Last Admin: 01/19/18 10:22 Dose: 125 mg Enoxaparin Sodium (Lovenox) 40 mg SC DAILY [facility] Last Admin: 01/19/18 10:21 Dose: 40 mg Famotidine (Pepcid) 20 mg PO DAILY [facility] Last Admin: 01/19/18 10:21 Dose: 20 mg Haloperidol (Haldol) 0.5 mg PO Q6H PRN PRN Reason: Agitation Insulin Human Regular (Novolin R) 0 unit SC [facility] PRN Reason: Protocol Last Admin: 01/19/18 11:19 Dose: Not Given Losartan Potassium (Cozaar) 25 mg PO DAILY [facility] Last Admin: 01/19/18 10:21 Dose: 25 mg Quetiapine Fumarate (Seroquel) 25 mg PO HS [facility] Last Admin: 01/18/18 21:02 Dose: Not Given - Labs Labs: 01/19/18 08:20 01/19/18 08:20
--- NOTE | 2018-01-19 20:16 | CP.PCM.PN ---
Subjective - Date & Time of Evaluation Date of Evaluation: 01/19/18 Time of Evaluation: 20:16 Objective - Vital Signs/Intake and Output Vital Signs (last 24 hours): Temp Pulse Resp BP Pulse Ox 98.0 F 86 20 137/61 96 01/19/18 16:29 01/19/18 16:29 01/19/18 16:29 01/19/18 16:29 01/19/18 16:29 Intake and Output: 01/19/18 01/20/18 18:59 06:59 Intake Total 220 Output Total 0 Balance 220 - Medications Medications: Current Medications Alprazolam (Xanax) 0.25 mg PO TID PRN PRN Reason: Anxiety Stop: 01/24/18 13:58 Aspirin (Ecotrin) 325 mg PO DAILY [facility] Last Admin: 01/19/18 10:21 Dose: 325 mg Divalproex Sodium (Depakote Sprinkles) 125 mg PO BID [facility] Last Admin: 01/19/18 18:20 Dose: 125 mg Enoxaparin Sodium (Lovenox) 40 mg SC DAILY [facility] Last Admin: 01/19/18 10:21 Dose: 40 mg Famotidine (Pepcid) 20 mg PO DAILY [facility] Last Admin: 01/19/18 10:21 Dose: 20 mg Haloperidol (Haldol) 0.5 mg PO Q6H PRN PRN Reason: Agitation Insulin Human Regular (Novolin R) 0 unit SC [facility] PRN Reason: Protocol Last Admin: 01/19/18 18:22 Dose: Not Given Losartan Potassium (Cozaar) 25 mg PO DAILY [facility] Last Admin: 01/19/18 10:21 Dose: 25 mg Quetiapine Fumarate (Seroquel) 25 mg PO HS [facility] Last Admin: 01/18/18 21:02 Dose: Not Given - Labs Labs: 01/19/18 08:20 01/19/18 08:20 Assessment and Plan (1) UTI (urinary tract infection) Status: Acute (2) Dementia Status: Acute (3) Diabetes Status: Acute (4) Memory disturbance Status: Acute
[2018-01-20] MEDS: (Novolin R) Insulin Human Regular 100 units/ml vial SC SCH ×5 (08:30→21:48)
[2018-01-20 09:19] LABS: ALB/GLOB RATIO 1.1 (1.0-2.1); ALBUMIN 3.8 g/dL (3.5-5.0); ALT/SGPT 30 U/L (21-72); AST/SGOT 33 U/L (17-59); BLOOD UREA NITROGEN 29 mg/dL (9-20); CALCIUM 9.3 mg/dl (8.6-10.4); GFR NON-AFRICAN AMERICAN > 60
[2018-01-20] MEDS: Aspirin 325 mg EC Tablets PO SCH (10:08)
[2018-01-20] MEDS: Divalproex 125 mg Sprinkle Capsule PO SCH ×2 (10:08→18:03)
[2018-01-20] MEDS: Enoxaparin 40 mg Syringe SC SCH (10:08)
--- NOTE | 2018-01-20 15:41 | CP.PCM.PN ---
Subjective - Date & Time of Evaluation Date of Evaluation: 01/20/18 Time of Evaluation: 15:40 - Subjective Subjective: patient is less agitated than previously. Vital signs are stable. Patient still has periods of confusion disorientation unintelligent speech with no motor or sensory deficit. We will continue the present medications. Will discuss with the family for further care. Objective - Vital Signs/Intake and Output Vital Signs (last 24 hours): Temp Pulse Resp BP Pulse Ox 98.3 F 75 20 143/79 98 01/20/18 08:45 01/20/18 08:45 01/20/18 08:45 01/20/18 08:45 01/20/18 08:45 Intake and Output: 01/20/18 01/20/18 11:59 23:59 Intake Total 180 250 Balance 180 250 - Medications Medications: Current Medications Alprazolam (Xanax) 0.25 mg PO TID PRN PRN Reason: Anxiety Stop: 01/24/18 13:58 Aspirin (Ecotrin) 325 mg PO DAILY [facility] Last Admin: 01/20/18 10:08 Dose: 325 mg Divalproex Sodium (Depakote Sprinkles) 125 mg PO BID [facility] Last Admin: 01/20/18 10:08 Dose: 125 mg Enoxaparin Sodium (Lovenox) 40 mg SC DAILY [facility] Last Admin: 01/20/18 10:08 Dose: 40 mg Famotidine (Pepcid) 20 mg PO DAILY [facility] Last Admin: 01/20/18 10:08 Dose: 20 mg Haloperidol (Haldol) 0.5 mg PO Q6H PRN PRN Reason: Agitation Insulin Human Regular (Novolin R) 0 unit SC [facility] PRN Reason: Protocol Last Admin: 01/20/18 12:11 Dose: Not Given Losartan Potassium (Cozaar) 25 mg PO DAILY [facility] Last Admin: 01/20/18 10:08 Dose: 25 mg Quetiapine Fumarate (Seroquel) 25 mg PO HS [facility] Last Admin: 01/19/18 21:19 Dose: 25 mg - Labs Labs: 01/19/18 08:20 01/20/18 08:58
[2018-01-21] MEDS: (Novolin R) Insulin Human Regular 100 units/ml vial SC SCH ×4 (07:57→17:38)
[2018-01-21 08:33] VITALS: BP 126/60; PULSE 85; TEMP 98.4; O2SAT 99
[2018-01-21] MEDS: Aspirin 325 mg EC Tablets PO SCH (09:40)
[2018-01-21] MEDS: Enoxaparin 40 mg Syringe SC SCH (09:40)
[2018-01-21] MEDS: Divalproex 125 mg Sprinkle Capsule PO SCH ×2 (09:41→17:32)
--- NOTE | 2018-01-21 12:24 | PCM.PSYCH ---
Initial Psychiatric Evaluation - Initial Psychiatric Evaluation Chief Complaint (in patient's own words): "I'm fine" History of Present Illness and Precipitating Events: The pt is seen, chart reviewed, case discussed few times with PAs No collateral available He is a very poor historian Denies past psych hx, has been dx'ed with dementia and got worse recently during a trip to [place] where he developed UTI He remains periodically agitated even though UTI is cleared. He is also disoriented at times Today, he knew he was in [facility] but couldn't tell the others 3/3 and then 0/3 in memory Not suicidal -homicidal Agitated per nurse and refused meds but he said he would take them unknown family hx Current Medications: Active Medications Generic Name Dose Route Start Last Admin Trade Name Freq PRN Reason Stop Dose Admin Alprazolam 0.25 mg 01/17/18 13:57 Xanax PO 01/24/18 13:58 TID PRN Anxiety Aspirin 325 mg 01/15/18 12:15 01/21/18 09:40 Ecotrin PO Not Given DAILY [facility] Divalproex Sodium 125 mg 01/18/18 18:00 01/21/18 09:41 Depakote Sprinkles PO Not Given BID [facility] Famotidine 20 mg 01/15/18 12:15 01/21/18 09:41 Pepcid PO Not Given DAILY [facility] Haloperidol 0.5 mg 01/16/18 12:16 Haldol PO Q6H PRN Agitation Insulin Human Regular 0 unit 01/13/18 16:30 01/21/18 11:54 Novolin R SC Not Given ACHS [facility] Protocol Losartan Potassium 25 mg 01/15/18 12:15 01/21/18 09:40 Cozaar PO Not Given DAILY [facility] Quetiapine Fumarate 25 mg 01/16/18 22:00 01/20/18 21:48 Seroquel PO 25 mg HS [facility] Administration Past Psychiatric History - Past Psychiatric History Previous Treatment History: None Pertinent Medical Hx (Current Medical&Sleep Prob, Allergies): Allergies Allergy/AdvReac Type Severity Reaction Status Date / Time camphor Allergy ITCHING Verified 10/26/17 21:06 menthol Allergy ITCHING Verified 10/26/17 21:06 eggs Allergy ITCHING Uncoded 10/26/17 21:06 Famotidine [Pepcid] 20 mg PO DAILY #0 tab 03/08/15 Losartan [Cozaar] 25 mg PO DAILY #0 tab 03/08/15 metFORMIN ER [glucoPHAGE XR] 500 mg PO DAILY #0 ter 03/08/15 Ammonium Lactate 12% [Lac-Hydrin 12% Cream (140 g)] 1 applic EXT BID PRN Aspirin [Aspirin EC] 325 mg PO DAILY 01/13/18 Cefuroxime 250 mg PO DAILY 01/13/18 Chlorthalidone 50 mg PO DAILY 01/13/18 Memantine HCl/Donepezil HCl [Namzaric 28 mg-10 mg Capsule] 1 cap PO DAILY Ondansetron 4 mg PO Q8H 01/13/18 Quetiapine Fumarate [Seroquel] 25 mg PO DAILY 01/13/18 Simvastatin 10 mg PO DAILY 01/13/18 Tamsulosin HCl 0.4 mg PO DAILY 01/13/18 Review of Systems - Neurological Neurological: Confusion, Memory Loss - Psychiatric Psychiatric: Behavioral Changes, Difficulty Concentrating, Irritability, Memory Loss. absent: Homicidal Ideation, Suicidal Ideation Mental Status Examination - Personal Presentation Personal Presentation: Looks stated age - Affect Affect: Constricted - Motor Activity Motor Activity: Calm - Reliability in Providing Information Reliability in Providing Information: Poor, due to cognitve impairment - Speech Speech: Organized - Mood Mood: Anxious - Formal Thought Process Formal Thought Process: Perservation - Cognitive Functions Orientation: Person, Place Sensorium: Alert Attention/Concentration: Easily distracted Abstract Thinking: [place] Estimate of Intelligence: Average Judgement: Imparied, as evidence by: Poor judgement Memory: Recent impaired, as evidence by: Inability to recall events of the day, Remote impaired as evidenced by: Inability to recall sig life events - Risk Risk: Diminished functioning DSM 5 DX - DSM 5 DSM 5 Diagnosis: Dementia, 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
--- NOTE | 2018-01-21 13:46 | CP.PCM.PN ---
Subjective - Date & Time of Evaluation Date of Evaluation: 01/21/18 Time of Evaluation: 13:45 - Subjective Subjective: patient is very combative today. Vital signs patient was evaluated by psych awaiting orders. Vital signs are stable Physical examination remains unchanged. Continue medication as outlined by psych Objective - Vital Signs/Intake and Output Vital Signs (last 24 hours): Temp Pulse Resp BP Pulse Ox 98.4 F 85 20 126/60 99 01/21/18 08:00 01/21/18 08:00 01/21/18 08:00 01/21/18 08:00 01/21/18 08:00 Intake and Output: 01/21/18 01/21/18 11:59 23:59 Intake Total 180 Balance 180 - Medications Medications: Current Medications Aspirin (Ecotrin) 325 mg PO DAILY [facility] Last Admin: 01/21/18 09:40 Dose: Not Given Divalproex Sodium (Depakote Sprinkles) 125 mg PO BID [facility] Last Admin: 01/21/18 09:41 Dose: Not Given Famotidine (Pepcid) 20 mg PO DAILY [facility] Last Admin: 01/21/18 09:41 Dose: Not Given Haloperidol (Haldol) 0.5 mg PO Q6H PRN PRN Reason: Agitation Haloperidol Lactate (Haldol) 1 mg IM Q6H PRN PRN Reason: severe aggression Insulin Human Regular (Novolin R) 0 unit SC ACHS [facility] PRN Reason: Protocol Last Admin: 01/21/18 11:54 Dose: Not Given Losartan Potassium (Cozaar) 25 mg PO DAILY [facility] Last Admin: 01/21/18 09:40 Dose: Not Given Propranolol HCl (Inderal) 10 mg PO BID [facility] Quetiapine Fumarate (Seroquel) 25 mg PO [facility] Last Admin: 01/20/18 21:48 Dose: 25 mg - Labs Labs: 01/19/18 08:20 01/20/18 08:58
--- NOTE | 2018-01-21 13:47 | PQF ---
PROVIDER RESPONSE TEXT: Septic encephalopathy REVIEWER QUERY TEXT: Encephalopathy Type "Altered mental status /questionable delirium secondary to sepsis" Documented by Dr. Paz León is d ocumented in the Medical Record. Please specify type Such as: -- Anoxic -- Metabolic -- Septic -- Toxic --Unable to determine -- Other, please specify The patient's Clinical Indicators include: Patient with diagnosis of sepsis due to UTI. "Altered mental status /questionable delirium secondary to sepsis" Documented by Dr. Paz León. WBC: 14.3H Creatinine: 1.9 Please consider verify in order to document Encephalopathy Query created by: Niranjan Cruz on 01/18/2018 3:22 PM Electronically signed by: Emile Cisneros MD 01/21/2018 1:44 PM
--- NOTE | 2018-01-21 18:00 | CP.PCM.PN ---
Subjective - Date & Time of Evaluation Date of Evaluation: 01/21/18 Time of Evaluation: 11:00 - Subjective Subjective: alert, awake, no acute agitation. Objective - Vital Signs/Intake and Output Vital Signs (last 24 hours): Temp Pulse Resp BP Pulse Ox 98.4 F 85 20 126/60 99 01/21/18 08:00 01/21/18 08:00 01/21/18 08:00 01/21/18 08:00 01/21/18 08:00 Intake and Output: 01/21/18 01/21/18 06:59 18:59 Intake Total 480 Balance 480 - Medications Medications: Current Medications Aspirin (Ecotrin) 325 mg PO DAILY [facility] Last Admin: 01/21/18 09:40 Dose: Not Given Divalproex Sodium (Depakote Sprinkles) 125 mg PO BID [facility] Last Admin: 01/21/18 17:32 Dose: 125 mg Famotidine (Pepcid) 20 mg PO DAILY [facility] Last Admin: 01/21/18 09:41 Dose: Not Given Haloperidol (Haldol) 0.5 mg PO Q6H PRN PRN Reason: Agitation Haloperidol Lactate (Haldol) 1 mg IM Q6H PRN PRN Reason: severe aggression Insulin Human Regular (Novolin R) 0 unit SC ACHS [facility] PRN Reason: Protocol Last Admin: 01/21/18 17:38 Dose: Not Given Lorazepam (Ativan) 0.5 mg IM Q6H PRN PRN Reason: severe anxiety, severe agitati Losartan Potassium (Cozaar) 25 mg PO DAILY [facility] Last Admin: 01/21/18 09:40 Dose: Not Given Propranolol HCl (Inderal) 10 mg PO BID [facility] Quetiapine Fumarate (Seroquel) 25 mg PO HS [facility] Last Admin: 01/20/18 21:48 Dose: 25 mg - Labs Labs: 01/19/18 08:20 01/20/18 08:58 Assessment and Plan - Assessment and Plan (Free Text) Assessment: 82 year old male with dementa, agitation on and off, seen and examined. No sob or chest pains, started eating better. Cleared by neuro and psyche for discharge to rehab. Will be seen by DR Trent in the group home, consulted as per DR Cisneros. No acute distress.
--- NOTE | 2018-01-27 15:33 | CP.PCM.DIS ---
Provider - Provider Date of Admission: 01/13/18 14:25 Attending physician: Emile Cisneros MD Time Spent in preparation of Discharge (in minutes): 36 Hospital Course - Lab Results Lab Results: Micro Results 01/13/18 14:30 Blood Blood Culture - Final NO GROWTH AFTER 5 DAYS 01/13/18 14:30 Blood Gram Stain - Final TEST NOT PERFORMED 01/13/18 11:00 Blood Blood Culture - Final NO GROWTH AFTER 5 DAYS 01/13/18 11:00 Blood Gram Stain - Final TEST NOT PERFORMED 01/13/18 12:35 Urine Urine Culture - Final No Growth (<1,000 CFU/ML) Most Recent Lab Values WBC 7.1 K/uL (4.8-10.8) 01/19/18 08:20 RBC 4.30 Mil/uL (4.40-5.90) L 01/19/18 08:20 Hgb 11.1 g/dL (12.0-18.0) L 01/19/18 08:20 Hct 34.6 % (35.0-51.0) L 01/19/18 08:20 MCV 80.3 fL (80.0-94.0) 01/19/18 08:20 MCH 25.8 pg (27.0-31.0) L 01/19/18 08:20 MCHC 32.2 g/dL (33.0-37.0) L 01/19/18 08:20 RDW 17.7 % (11.5-14.5) H 01/19/18 08:20 Plt Count 275 K/uL (130-400) 01/19/18 08:20 MPV 9.2 fL (7.2-11.7) 01/19/18 08:20 Neut % (Auto) 55.8 % (50.0-75.0) 01/19/18 08:20 Lymph % (Auto) 26.5 % (20.0-40.0) 01/19/18 08:20 [place] % (Auto) 9.9 % (0.0-10.0) 01/19/18 08:20 Eos % (Auto) 6.7 % (0.0-4.0) H 01/19/18 08:20 Baso % (Auto) 1.1 % (0.0-2.0) 01/19/18 08:20 Neut # (Auto) 3.9 K/uL (1.8-7.0) 01/19/18 08:20 Lymph # (Auto) 1.9 K/uL (1.0-4.3) 01/19/18 08:20 [place] # (Auto) 0.7 K/uL (0.0-0.8) 01/19/18 08:20 Eos # (Auto) 0.5 K/uL (0.0-0.7) 01/19/18 08:20 Baso # (Auto) 0.1 K/uL (0.0-0.2) 01/19/18 08:20 Sodium 140 mmol/L (132-148) 01/20/18 08:58 Potassium 4.3 mmol/L (3.6-5.2) 01/20/18 08:58 Chloride 102 mmol/L (98-107) 01/20/18 08:58 Carbon Dioxide 26 mmol/L (22-30) 01/20/18 08:58 Anion Gap 17 (10-20) 01/20/18 08:58 BUN 29 mg/dL (9-20) H 01/20/18 08:58 Creatinine 1.0 mg/dL (0.8-1.5) 01/20/18 08:58 Est GFR ( Amer) > 60 01/20/18 08:58 Est GFR (Non-Af Amer) > 60 01/20/18 08:58 POC Glucose (mg/dL) 174 mg/dL (65-110) H 01/21/18 16:29 Random Glucose 86 mg/dL (75-110) 01/20/18 08:58 Calcium 9.3 mg/dl (8.6-10.4) 01/20/18 08:58 Total Bilirubin 0.5 mg/dL (0.2-1.3) 01/20/18 08:58 AST 33 U/L (17-59) 01/20/18 08:58 ALT 30 U/L (21-72) 01/20/18 08:58 Alkaline Phosphatase 103 U/L (38-126) 01/20/18 08:58 Troponin I 0.0190 ng/mL (0.00-0.120) 01/13/18 11:12 Total Protein 7.4 g/dL (6.3-8.3) 01/20/18 08:58 Albumin 3.8 g/dL (3.5-5.0) 01/20/18 08:58 Globulin 3.6 gm/dL (2.2-3.9) 01/20/18 08:58 Albumin/Globulin Ratio 1.1 (1.0-2.1) 01/20/18 08:58 Prostate Specific Ag 4.69 ng/mL (0.00-4.0) H 01/14/18 07:09 Vitamin B12 > 1000 pg/mL (239-931) H 01/18/18 16:34 Urine Color Porsha (YELLOW) 01/13/18 12:35 Urine Clarity Hazy (Clear) 01/13/18 12:35 Urine pH 5.0 (5.0-8.0) 01/13/18 12:35 Ur Specific [place] 1.017 (1.003-1.030) 01/13/18 12:35 Urine Protein 1+ mg/dL (NEGATIVE) H 01/13/18 12:35 Urine Glucose (UA) 1+ mg/dL (Normal) H 01/13/18 12:35 Urine Ketones 1+ mg/dL (NEGATIVE) H 01/13/18 12:35 Urine Blood 2+ (NEGATIVE) H 01/13/18 12:35 Urine Nitrate Negative (NEGATIVE) 01/13/18 12:35 Urine Bilirubin Negative (NEGATIVE) 01/13/18 12:35 Urine Urobilinogen 2.0 mg/dL (0.2-1.0) 01/13/18 12:35 Ur Leukocyte Esterase 3+ Yen/uL (Negative) H 01/13/18 12:35 Urine WBC (Auto) 331 /hpf (0-5) H 01/13/18 12:35 Urine RBC (Auto) 18 /hpf (0-3) H 01/13/18 12:35 Urine WBC Clumps (Auto) Mod /hpf (NONE) H 01/13/18 12:35 Hyaline Casts 3-5 /lpf (0-2) H 01/13/18 12:35 Salicylates < 1.0 mg/dL 1 01/13/18 11:12 - Hospital Course Hospital Course: Patient recently had gone to [place] and was admitted in hospital in [place] for UTI. Patient presented to yesterday and went straight to the emergency room as family found the patient to be more confused and disoriented and talking without any sense. There was no any deficits. In the emergency room patient was evaluated the pertinent positive finding was the urine showed WBC of 331. Patient mental status was confused not appropriately answering questions. CT of the head showed old CVA. Blood tests were normal with a WBC count of 14.6. Patient was admitted for possible UTI and change of mental status Complete neuro workup was negative patient had old changes of a previous CVA. Psychiatric consult was obtained and patient was put on the regimen of antipsychotic medication and antidepressant. Patient improved on above therapy prior to transfer patient was evaluated by neurology and cleared for discharge to rehab center. Discharge Exam - Head Exam Head Exam: NORMAL INSPECTION Discharge Plan - Discharge Medications Prescriptions: Divalproex [Depakote Sprinkles] 125 mg PO BID 30 Days capsule - Follow Up Plan Condition: FAIR Disposition: REHAB FACILITY/REHAB UNIT Instructions: Dementia (DC), Urinary Tract Infection in Men (DC) Referrals: Emile Cisneros MD [Staff Provider] -
== END 2018-01-21 20:00 | DRG 871 ==
LOC: C.ER 10:24 → C.9E 14:25 → C.3T 15:00
PROVIDERS: ADMIT Internal Medicine Cardiovascular Disease; ATTEND Internal Medicine Cardiovascular Disease
DX: A41.9 Sepsis, unspecified organism (principal); G93.40 Encephalopathy, unspecified; N39.0 Urinary tract infection, site not specified; E78.5 Hyperlipidemia, unspecified; F02.80 Dementia in other diseases classified elsewhere, unspecified severity, without behavioral disturbance, psychotic disturbance, mood disturbance, and anxiety; G30.9 Alzheimer's disease, unspecified; I10 Essential (primary) hypertension; Z79.4 Long term (current) use of insulin; Z86.73 Personal history of transient ischemic attack (TIA), and cerebral infarction without residual deficits; E10.649 Type 1 diabetes mellitus with hypoglycemia without coma

== ENCOUNTER 2018-02-26 08:24 | Emergency (ER) | payer MEDICARE, MEDICAID ==
[2018-02-26 08:25] VITALS: BMI 23.8
[2018-02-26 08:45] VITALS: O2SAT 100
--- NOTE | 2018-02-26 09:23 | C.PDOC ---
History Of Present Illness 82 yo male with PMH CVA, HTN, HLD, seizures called the ambulance after he had one episode of vomiting this morning. Pt notes he feels well now and requests to go home. Denies chest pain, sob, abdominal pain, diarrhea, uri, or fever. Time Seen by Provider: 02/26/18 08:52 Chief Complaint (Nursing): Abdominal Pain History Per: Patient History/Exam Limitations: no limitations Onset/Duration Of Symptoms: Mins Current Symptoms Are (Timing): Better Past Medical History Vital Signs: Last Vital Signs Temp 97.6 F 02/26/18 10:18 Pulse 73 02/26/18 10:18 Resp 18 02/26/18 10:18 BP 119/69 02/26/18 10:18 Pulse Ox 100 02/26/18 10:18 - Medical History PMH: Arthritis, CVA (Ischemic, 2 months ago.), Depression, HTN, Hypercholesterolemia, Hyperlipidemia, Seizures Denies: Chronic Kidney Disease Family History: States: Unknown Family Hx - Social History Hx Tobacco Use: No Hx Alcohol Use: No Hx Substance Use: No - Immunization History Hx Tetanus Toxoid Vaccination: Yes Hx Influenza Vaccination: Yes Hx Pneumococcal Vaccination: Yes Review Of Systems Except As Marked, All Systems Reviewed And Found Negative. Gastrointestinal: Positive for: Vomiting Physical Exam - Physical Exam Appears: Well, Non-toxic, No Acute Distress Skin: Normal Color, Warm, Dry Head: Atraumatic, Normacephalic Eye(s): bilateral: Normal Inspection, EOMI Nose: Normal Oral Mucosa: Moist Neck: Normal, Normal ROM, Supple Chest: Symmetrical Cardiovascular: Rhythm Regular Respiratory: Normal Breath Sounds, No Accessory Muscle Use Gastrointestinal/Abdominal: Normal Exam, Soft, No Tenderness Extremity: Normal ROM Neurological/Psych: Oriented x3, Normal Speech, Normal Cognition ED Course And Treatment O2 Sat by Pulse Oximetry: 100 Progress Note: Pt was offered further evaluation for his vomiting. He states he feels well and wants to go home. He states he had a full evaluation a few days ago and everything "is good". Declines labs and imaging. Case discussed with Dr Cisneros, agrees upon discharge patient home, he will follow up with him. On re- evaluation, pt notes he feels well. He ate tuna sandwich and juice. No vomiting. REmains afebrile. Abdomen soft, non tender. Pt is a&o x3 . Instructed to follow up with PMD tomorrow or return to ER if symtpoms persist or worsen. Disposition - Disposition Disposition: HOME/ ROUTINE Disposition Time: 09:22 Condition: STABLE Additional Instructions: Return to ER if symptoms persist or worsen. Instructions: Nausea and Vomiting, Adult (DC) Forms: [facility] ([place]ian), (AMA) Informed Refusal - Clinical Impression Clinical Impression: Vomiting
[2018-02-26 11:02] VITALS: BP 119/69; PULSE 73; RESP 18; TEMP 97.6
== END 2018-02-26 10:25 | disposition home or self-care (01) ==
LOC: C.ER 08:24
DX: R11.10 Vomiting, unspecified (principal)

== ENCOUNTER 2018-07-25 08:53 | Inpatient (IN) | payer MEDICARE, MEDICAID ==
[2018-07-25 09:04] VITALS: BMI 27.2
--- NOTE | 2018-07-25 09:09 | C.PDOC ---
History Of Present Illness 82 y/o M c PMHx HTN, DM, CVA p/w syncope x "couple minutes" 2 hours ago. BIBEMS, denies pain but feels as though something is wrong with his abdomen. Denies chest pain, back pain, extremity pain. Family denies fall. Denies nausea, vo miting, numbness, weakness. Time Seen by Provider: 07/25/18 09:03 Chief Complaint (Nursing): Syncope Past Medical History - Medical History PMH: Arthritis, CVA (Ischemic, 2 months ago.), Depression, HTN, Hypercholesterolemia, Hyperlipidemia, Seizures Denies: Chronic Kidney Disease Family History: States: Unknown Family Hx - Social History Hx Tobacco Use: No Hx Alcohol Use: No Hx Substance Use: No - Immunization History Hx Tetanus Toxoid Vaccination: Yes Hx Influenza Vaccination: Yes Hx Pneumococcal Vaccination: Yes Review Of Systems Except As Marked, All Systems Reviewed And Found Negative. Constitutional: Negative for: Fever Cardiovascular: Negative for: Chest Pain Physical Exam - Physical Exam Additional Physical Exam Comments: Constitutional: No acute distress. Head: Normocephalic. Atraumatic. Eyes: PERRL. ENT: Moist mucous membranes. Neck: Supple. Cardiovascular: Regular rate. Radial pulse 2+ bilaterally. Chest: No tenderness. Respiratory: Clear to auscultation bilaterally. GI: Soft. Abdominal distention. Diffuse mild tenderness. Back: No CVA tenderness. Musculoskeletal: No tenderness or swelling of extremities. Skin: No rash. Neurologic: Alert, no focal deficit. ED Course And Treatment - Laboratory Results Result Diagrams: 07/25/18 09:13 07/25/18 09:13 Medical Decision Making Medical Decision Making: EKG NSR 73 bpm, no ST/T wave changes. CT-Abd & Pelv. Results PROCEDURE: CT Abdomen and Pelvis without Oral or IV contrast. FINDINGS: There is limited evaluation of the solid organs without the administration of IV contrast. LOWER THORAX: No visible consolidation, pleural effusion, or pneumothorax. Small hiatal hernia/distal esophageal wall thickening. LIVER: Tiny hypodensities which are too small to characterize evident within the right hepatic lobe; statistically likely cysts or hemangiomas. GALLBLADDER AND BILE DUCTS: Cholelithiasis. PANCREAS: Unremarkable unenhanced appearance. SPLEEN: Unremarkable unenhanced appearance. ADRENALS: Unremarkable unenhanced appearance. KIDNEYS AND URETERS: No hydronephrosis or obstructing renal calculus. BLADDER: The urinary bladder appears unremarkable. REPRODUCTIVE: The prostate gland measures approximately 3.0 x 3.2 cm and contains calcification. APPENDIX: The appendix appears within normal limits of caliber. No secondary signs of acute appendicitis. BOWEL: The stomach is nondistended. Lack of oral contrast limits evaluation for bowel pathology. The bowel loops appear within normal limits of caliber without evidence of intestinal obstruction. Moderate to severe constipation most significantly involving the left/rectosigmoid colon. PERITONEUM: No significant free fluid. No definite free air. LYMPH NODES: No bulky lymphadenopathy identified. VASCULATURE: Dense atherosclerotic calcifications of the aorta and branches. No aortic aneurysm. BONES: Osseous demineralization. Degenerative changes. OTHER FINDINGS: Small fat containing inguinal hernias noted bilaterally. IMPRESSION: Moderate to severe constipation most significantly involving the left/rectosigmoid colon. Too small to characterize hepatic hypodensities; statistically likely cysts or hemangiomas. Cholelithiasis. Additional findings as above. CXR no acute disease. Dr. Cisneros accepts patient to his service. Disposition - Disposition Disposition: HOSPITALIZED Disposition Time: 11:50 Condition: FAIR Forms: [facility] (Latvian) - Clinical Impression Clinical Impression: Syncope
[2018-07-25 09:17] LABS: BASO # 0.1 K/uL (0.0-0.2); EOS # 0.2 K/uL (0.0-0.7); EOS % 3.7 % (0.0-4.0); HEMOGLOBIN 9.9 g/dL (12.0-18.0); LYMPH # 1.5 K/uL (1.0-4.3); LYMPH % 24.4 % (20.0-40.0); MEAN CORPUSCULAR HEMOGLOBIN 24.8 pg (27.0-31.0); MEAN CORPUSCULAR HGB CONC 31.3 g/dL (33.0-37.0); MONO # 0.6 K/uL (0.0-0.8); MONO % 9.3 % (0.0-10.0); NEUT # 3.8 K/uL (1.8-7.0); NEUT % 61.6 % (50.0-75.0); NRBC % 0.1 % (0.0-2.0); RBC 4.01 Mil/uL (4.40-5.90); RED CELL DISTRIBUTION WIDTH 17.5 % (11.5-14.5); WHITE BLOOD COUNT 6.2 K/uL (4.8-10.8)
[2018-07-25 09:19] LABS: MEAN CELL VOLUME 79.3 fL (80.0-94.0)
[2018-07-25 09:24] LABS: PROTHROMBIN TIME 10.4 SECONDS (9.7-12.2)
[2018-07-25 09:36] LABS: ALB/GLOB RATIO 1.1 (1.0-2.1); ALBUMIN 4.1 g/dL (3.5-5.0); ALT/SGPT 13 U/L (21-72); AST/SGOT 20 U/L (17-59); BLOOD UREA NITROGEN 29 mg/dL (9-20); CALCIUM 8.7 mg/dl (8.6-10.4); GFR NON-AFRICAN AMERICAN 45; LIPASE 458 U/L (23-300)
[2018-07-25 09:46] LABS: CK-MB 1.42 ng/mL (0.0-3.38)
--- NOTE | 2018-07-25 11:18 | CT ---
PROCEDURE: CT Abdomen and Pelvis without Oral or IV contrast. HISTORY: abdominal pain and distention, syncope COMPARISON: None available TECHNIQUE: Contiguous axial images of the abdomen and pelvis. No oral or IV contrast administered. Coronal and Sagittal reformats generated and reviewed. Radiation dose: Total exam DLP = duct mGy-cm. This CT exam was performed using one or more of the following dose reduction techniques: Automated exposure control, adjustment of the mA and/or kV according to patient size, and/or use of iterative reconstruction technique. FINDINGS: There is limited evaluation of the solid organs without the administration of IV contrast. LOWER THORAX: No visible consolidation, pleural effusion, or pneumothorax. Small hiatal hernia/distal esophageal wall thickening. LIVER: Tiny hypodensities which are too small to characterize evident within the right hepatic lobe; statistically likely cysts or hemangiomas. GALLBLADDER AND BILE DUCTS: Cholelithiasis. PANCREAS: Unremarkable unenhanced appearance. SPLEEN: Unremarkable unenhanced appearance. ADRENALS: Unremarkable unenhanced appearance. KIDNEYS AND URETERS: No hydronephrosis or obstructing renal calculus. BLADDER: The urinary bladder appears unremarkable. REPRODUCTIVE: The prostate gland measures approximately 3.0 x 3.2 cm and contains calcification. APPENDIX: The appendix appears within normal limits of caliber. No secondary signs of acute appendicitis. BOWEL: The stomach is nondistended. Lack of oral contrast limits evaluation for bowel pathology. The bowel loops appear within normal limits of caliber without evidence of intestinal obstruction. Moderate to severe constipation most significantly involving the left/rectosigmoid colon. PERITONEUM: No significant free fluid. No definite free air. LYMPH NODES: No bulky lymphadenopathy identified. VASCULATURE: Dense atherosclerotic calcifications of the aorta and branches. No aortic aneurysm. BONES: Osseous demineralization. Degenerative changes. OTHER FINDINGS: Small fat containing inguinal hernias noted bilaterally. IMPRESSION: Moderate to severe constipation most significantly involving the left/rectosigmoid colon. Too small to characterize hepatic hypodensities; statistically likely cysts or hemangiomas. Cholelithiasis. Additional findings as above.
--- NOTE | 2018-07-25 11:27 | RAD ---
Date of service: 07/25/2018 HISTORY: r/o PNA COMPARISON: 10/26/2017. FINDINGS: LUNGS: The lungs are well inflated and clear. There is multifocal linear scarring in the left lower lobe. PLEURA: No pleural effusions or pneumothorax. CARDIOVASCULAR: The heart is normal in size. There are aortic atherosclerotic calcifications present. OSSEOUS STRUCTURES: Within normal limits for the patient's age. VISUALIZED UPPER ABDOMEN: Normal. OTHER FINDINGS: None. IMPRESSION: No active pulmonary disease.
--- NOTE | 2018-07-25 12:33 | CP.PCM.HP ---
History of Present Illness - History of Present Illness History of Present Illness: COMPREHENSIVE CONSULT HPI WHILE IN DAY CARE HAD NEAR SYNCOPAL EPISODE . NO LOC AND NO EXTERNAL INJURY WHILE IN ER C/O ABD .PAIN AND CT OF ABD WAS NEG PAST HIST. HAS H/O CVA WITH DYSARTHRIA AND COGNITIVE IMPAIREMENT . T2DM, HTN PERSONAL HIST: Smoking. N Alcohol. N Allergy N Travel_- . FAMILY HIST : ROS : Constitutional: Negative for weight change, chills, night sweats, and POS usage of assist device. Eyes: Negative for redness, swelling, itching, discharge, vision changes, blurry vision, double vision, glaucoma, cataracts, Ears: Negative for hearing loss, ringing, , tinnitus, vertigo Nose: Negative for rhinorrhea, stuffiness, sniffing, itching, postnasal drip, discoloration, nasal congestion and epistaxis. Throat: Negative for throat clearing, sore throat, hoarseness, difficulty swallowing and difficulty speaking. Respiratory: Negative for cough, , sputum production, chest tightness, wheezing, pleuritic chest pain ,daytime somnolence, chronic cough, hemoptysis, snoring at night, Cardiovascular: Negative for chest pain, palpitations, orthopnea, PND, Edema of legs, leg cramps, angina, claudication, , irregular heartbeat, Neurology: Negative for irritability, muscle weakness, numbness and tingling, seizures, tremors, migraines, , recurrent headaches Gastrointestinal: Negative for difficulty swallowing, diarrhea, constipation, black stools, rectal bleeding, nausea, flatulence, reflux, poor appetite, change s in bowel habits, abdominal pain Genitourinary: Negative for frequent urination, hematuria, discharge, incontinence, urinary retention, frequent UTI, Psychiatric: Negative for depression, anxiety/panic, suicidal tendencies, Musculoskeletal: Negative for swollen joints, back pain, , neck pain, morning stiffness of joints, . Skin: Negative for rash, ulcers, itching, dry skin and pigmented lesions. P/E: Constitutional: Appears stated age and in no apparent distress. Head: Normocephalic. Ears: External ear canals patent without inflammation. Tympanic membranes intact with normal light reflex and landmark. Eyes: Pupils are central, bilaterally equal, symmetrical and reacts to light with normal movements and no icterus or pallor. Nose: External nares are patent. Mucosa is pink Mouth-Throat: Good general appearance and condition. No post-pharyngeal/oropharyngeal erythema and tonsillar hypertrophy. Good dental hygiene. Neck-Lymphatic: Neck is supple with normal ROM, no thyromegaly, lymph nodes or masses. JVD is normal with no carotid bruit. Lungs: Clear to percussion and auscultation with bilateral normal air entry. Cardiovascular: S1 and S2 are normal with no murmurs, gallops and rub. GI Exam: No hepatomegaly. Abdomen is soft and non-tender. No Organomegaly , masses or hernias are evident and bowel sounds are normal and active. Neurology: Higher function and all cranial nerves intact, with. Superficial and deep reflexes are normal with downwards planters. No cerebellar deficit with normal gait. Musculoskeletal: No tender spots with normal curvature of the spine with no swelling or restricted ROM of the small and large joints. Extremities: Homans sign absent. Intact pulses with no pitting edema, calf tenderness or skin color changes. Skin: No rash, eruptions or abnormal skin pigmentation LAB/RADIOLOGY: ASSESMENT : NEAR SYNCOPY , UNCLEAR ETIOLOGY T2DM H/O CVA WITH DEFICIT PLAN: SEE ORDERS Present on Admission - Present on Admission Any Indicators Present on Admission: No Past Patient History - Past Medical History & Family History Past Medical History?: Yes - Past Social History Smoking Status: Never Smoked - CARDIAC Hx Hypercholesterolemia: Yes Hx Hypertension: Yes - PULMONARY Hx Respiratory Disorders: No - NEUROLOGICAL Hx Seizures: Yes - HEENT Hx HEENT Problems: No - RENAL Hx Chronic Kidney Disease: No - ENDOCRINE/METABOLIC Hx Diabetes Mellitus Type 1: Yes - HEMATOLOGICAL/ONCOLOGICAL Hx Blood Disorders: No - INTEGUMENTARY Hx Dermatological Problems: Yes Other/Comment: Old 50-60 Yrs Old LFA Small Area Soft Skin. - MUSCULOSKELETAL/RHEUMATOLOGICAL Hx Arthritis: Yes - GASTROINTESTINAL Hx Gastrointestinal Disorders: No - GENITOURINARY/GYNECOLOGICAL Hx Genitourinary Disorders: Yes Hx Urinary Tract Infection: Yes - PSYCHIATRIC Hx Depression: Yes Hx Substance Use: No - SURGICAL HISTORY Hx Surgeries: Yes Other/Comment: Vasectomy 1968 - ANESTHESIA Hx Anesthesia: Yes Hx Anesthesia Reactions: No Hx Malignant Hyperthermia: No Meds Allergies/Adverse Reactions: Allergies Allergy/AdvReac Type Severity Reaction Status Date / Time camphor Allergy ITCHING Verified 07/25/18 09:13 menthol Allergy ITCHING Verified 07/25/18 09:13 eggs Allergy ITCHING Uncoded 07/25/18 09:13 Results - Vital Signs Recent Vital Signs: Last Vital Signs Temp 97.6 F 07/25/18 09:05 Pulse 76 07/25/18 11:12 Resp 14 07/25/18 11:12 BP 123/61 07/25/18 11:12 Pulse Ox 140 H 07/25/18 11:12 - Labs Result Diagrams: 07/25/18 09:13 07/25/18 09:13 Labs: Laboratory Results - last 24 hr 07/25/18 07/25/18 07/25/18 09:01 09:13 09:13 WBC 6.2 RBC 4.01 L Hgb 9.9 L Hct 31.8 L MCV 79.3 L D MCH 24.8 L MCHC 31.3 L RDW 17.5 H Plt Count 257 MPV 9.0 Neut % (Auto) 61.6 Lymph % (Auto) 24.4 [place] % (Auto) 9.3 Eos % (Auto) 3.7 Baso % (Auto) 1.0 Neut # (Auto) 3.8 Lymph # (Auto) 1.5 [place] # (Auto) 0.6 Eos # (Auto) 0.2 Baso # (Auto) 0.1 PT 10.4 INR 1.0 APTT 26 Sodium Potassium Chloride Carbon Dioxide Anion Gap BUN Creatinine Est GFR ( Amer) Est GFR (Non-Af Amer) POC Glucose (mg/dL) 194 H Random Glucose Calcium Total Bilirubin AST ALT Alkaline Phosphatase Total Creatine Kinase CK-MB (Mass) Troponin I Total Protein Albumin Globulin Albumin/Globulin Ratio Lipase 07/25/18 09:13 WBC RBC Hgb Hct MCV MCH MCHC RDW Plt Count MPV Neut % (Auto) Lymph % (Auto) [place] % (Auto) Eos % (Auto) Baso % (Auto) Neut # (Auto) Lymph # (Auto) [place] # (Auto) Eos # (Auto) Baso # (Auto) PT INR APTT Sodium 138 Potassium 4.8 Chloride 104 Carbon Dioxide 22 Anion Gap 16 BUN 29 H Creatinine 1.5 Est GFR ( Amer) 54 Est GFR (Non-Af Amer) 45 POC Glucose (mg/dL) Random Glucose 168 H D Calcium 8.7 Total Bilirubin 0.3 AST 20 ALT 13 L D Alkaline Phosphatase 93 Total Creatine Kinase 90 CK-MB (Mass) 1.42 Troponin I < 0.0120 Total Protein 7.9 Albumin 4.1 Globulin 3.7 Albumin/Globulin Ratio 1.1 Lipase 458 H
[2018-07-25] MEDS ORDERED: Glucagon Recombinant 1 mg Inj IM PRN (14:06)
[2018-07-25] MEDS ORDERED: Dextrose 50% SYRINGE Inj (50 ml) IV PRN (14:06)
[2018-07-25] MEDS: Sodium Chloride 0.9% 1,000 ML IV SCH (14:55)
[2018-07-25] MEDS: (Novolin R) Insulin Human Regular 100 units/ml vial SC SCH ×2 (17:26→21:22)
[2018-07-26] MEDS: Sodium Chloride 0.9% 1,000 ML IV SCH ×3 (03:50→15:35)
[2018-07-26 07:28] LABS: HEMOGLOBIN 8.9 g/dL (12.0-18.0); MEAN CELL VOLUME 78.9 fL (80.0-94.0); MEAN CORPUSCULAR HEMOGLOBIN 25.4 pg (27.0-31.0); MEAN CORPUSCULAR HGB CONC 32.3 g/dL (33.0-37.0); MEAN PLATELET VOLUME 9.6 fL (7.2-11.7); RBC 3.51 Mil/uL (4.40-5.90); RED CELL DISTRIBUTION WIDTH 17.7 % (11.5-14.5); WHITE BLOOD COUNT 5.7 K/uL (4.8-10.8)
[2018-07-26] MEDS: (Novolin R) Insulin Human Regular 100 units/ml vial SC SCH ×4 (07:30→21:17)
[2018-07-26 07:32] LABS: ALB/GLOB RATIO 1.1 (1.0-2.1); ALBUMIN 3.5 g/dL (3.5-5.0); ALT/SGPT 13 U/L (21-72); AMYLASE 162 U/L (30-110); AST/SGOT 18 U/L (17-59); BLOOD UREA NITROGEN 22 mg/dL (9-20); CALCIUM 8.2 mg/dl (8.6-10.4); GFR NON-AFRICAN AMERICAN 53; LIPASE 346 U/L (23-300)
[2018-07-26] MEDS ORDERED: Rosuvastatin Calcium 2.5 mg Tab PO SCH (10:00)
--- NOTE | 2018-07-26 11:20 | CP.PCM.PN ---
Subjective - Date & Time of Evaluation Date of Evaluation: 07/26/18 Time of Evaluation: 11:18 - Subjective Subjective: CHIEF COMPLAINTS TODAY : NO FURTHER DIZZINESS VAGUE ABD PAIN ROS. HEENT : N. Resp : No cough, wheezing ,pleuritic CP ,or hemoptysis Cardio : No anginal CP, PND, orthopnea, palpitation GI : No n/v ,diarrhea or GI bleeding . 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 Musculoskel : No joint swelling , Derm : No rash Psych : Normal affect. Ext : No swelling ,calf pain PE. Pt. is alert awake in no distress. V.S As noted in the chart Head ,ear nose,throat and eyes : Normal. Neck : Supple with normal carotids. Lungs: Clear air entry. Heart : S1 & S2 normal with S4. No murmur. Abd : Soft non tender with normal bowel sounds. Neuro : Moves all ext. with R. LOWER WEAKNESS Ext : No edema with intact pulses.Non tender calves Derm : No rashes or decubitus ulcer. LABS/RADIOLOGY: ASSESSMENT/PLAN : NEURO W/P Objective - Vital Signs/Intake and Output Vital Signs (last 24 hours): Temp Pulse Resp BP Pulse Ox 98.0 F 91 H 20 115/62 98 07/26/18 08:07 07/26/18 08:07 07/26/18 08:07 07/26/18 08:07 07/26/18 08:07 - Medications Medications: Current Medications Dextrose (Dextrose 50% Inj) 0 ml IV STAT PRN; Protocol PRN Reason: Hypoglycemia Protocol Dextrose (Glutose 15) 0 gm PO ONCE PRN; Protocol PRN Reason: Hypoglycemia Protocol Divalproex Sodium (Depakote Sprinkles) 125 mg PO BID [facility] Donepezil HCl (Aricept) 10 mg PO HS [facility] Glucagon (Glucagen Diagnostic Kit) 0 mg IM STAT PRN; Protocol PRN Reason: Hypoglycemia Protocol Heparin Sodium (Porcine) (Heparin) 5,000 units SC Q12 [facility] Last Admin: 07/26/18 09:38 Dose: 5,000 units Dextrose (Dextrose 5% In Water 1000 Ml) 1,000 mls @ 0 mls/hr IV .Q0M PRN; Protocol PRN Reason: Hypoglycemia Protocol Sodium Chloride (Sodium Chloride 0.9%) 1,000 mls @ 80 mls/hr IV .[id number] [facility] Last Admin: 07/26/18 03:50 Dose: 80 mls/hr Insulin Human Regular (Novolin R) 0 unit SC ACHS [facility]; Protocol Last Admin: 07/25/18 21:22 Dose: Not Given Lactulose (Enulose) 20 gm PO HS [facility] Last Admin: 07/25/18 21:24 Dose: 20 gm Losartan Potassium (Cozaar) 25 mg PO DAILY [facility] Last Admin: 07/26/18 09:39 Dose: 25 mg Memantine (Namenda) 10 mg PO BID [facility] Last Admin: 07/26/18 09:39 Dose: 10 mg Propranolol HCl (Inderal) 10 mg PO BID [facility] Rosuvastatin Calcium (Crestor) 2.5 mg PO DAILY [facility] Tamsulosin HCl (Flomax) 0.4 mg PO DAILY [facility] Last Admin: 07/26/18 09:39 Dose: 0.4 mg - Labs Labs: 07/26/18 07:09 07/26/18 07:09 PT 10.4 SECONDS (9.7-12.2) 07/25/18 09:13 INR 1.0 07/25/18 09:13 APTT 26 SECONDS (21-34) 07/25/18 09:13
[2018-07-26] MEDS: Divalproex 125 mg Sprinkle Capsule PO SCH ×2 (12:00→17:26)
--- NOTE | 2018-07-26 16:48 | CARD ---
APPROVED REPORT Date of service: 07/25/2018 EKG Measurement Heart [id number] <Conclusion> Normal sinus rhythm Normal ECG
--- NOTE | 2018-07-26 17:13 | VASCLAB ---
Date of service: 07/26/2018 PROCEDURE: Carotid Duplex Exam. HISTORY: CVA COMPARISON: None available. TECHNIQUE: Grayscale and duplex Doppler evaluation of the cervical carotid and vertebral arteries were performed. The common carotid, carotid bifurcations and cervical Internal Carotid Artery (ICA) and proximal External Carotid Artery (ECA) were evaluated. The vertebral arteries were evaluated for gross patency and flow direction. Report prepared by Jase Batres, BS, RVT FINDINGS: RIGHT CAROTID ARTERIES: 1. Common Carotid Artery: No significant focal plaque formation of the right common carotid artery. Maximum Peak Systolic velocity: 70 cm/sec: End-diastolic velocity 10 cm/sec. 2. Carotid Bifurcation: plaque formation. Maximum Peak Systolic velocity: 77 cm/sec: End-diastolic velocity 15 cm/sec. 3. Internal Carotid Artery: Plaque description: 3.1. Proximal Segment: Peak systolic velocity 111 cm/sec: End-diastolic velocity 25 cm/sec - % stenosis 0-15% 3.2. Middle Segment: Peak systolic velocity 78 cm/sec: End-diastolic velocity 17 cm/sec - % stenosis 0-15% 3.3. Distal Segment: Peak systolic velocity 54 cm/sec: End-diastolic velocity 15 cm/sec - % stenosis 0-15% 4. External Carotid Artery: No significant focal plaque formation. Peak systolic velocity 82 cm/sec 5. ICA/CCA Ratio: 1.6 LEFT CAROTID ARTERIES: 1. Common Carotid Artery: No significant focal plaque formation of the left common carotid artery. Maximum Peak Systolic velocity: 78 cm/sec: End-diastolic velocity 18 cm/sec. 2. Carotid Bifurcation: plaque formation. Maximum Peak Systolic velocity: 45 cm/sec: End-diastolic velocity 11 cm/sec. 3. Internal Carotid Artery: Plaque description: 3.1. Proximal Segment: Peak systolic velocity 96 cm/sec: End-diastolic velocity 23 cm/sec - % stenosis 0-15% 3.2. Middle Segment: Peak systolic velocity 41 cm/sec: End-diastolic velocity 12 cm/sec - % stenosis 0-15% 3.3. Distal Segment: Peak systolic velocity 77 cm/sec: End-diastolic velocity 22 cm/sec - % stenosis 0-15% 4. External Carotid Artery: No significant focal plaque formation. Peak systolic velocity 64 cm/sec 5. ICA/CCA Ratio: 1.2 VERTEBRAL ARTERIES: 1. Right Vertebral Artery: The right vertebral artery flow direction is antegrade. 2. Left Vertebral Artery: The left vertebral artery flow direction is antegrade. OTHER FINDINGS: 1. Right Brachial Blood pressure: 162 mmHg. 2. Left Brachial Blood pressure: 160 mmHg. 3. No atherosclerotic calcification present IMPRESSION: RIGHT: Duplex scan does not suggest hemodynamically significant stenosis of the right extracranial carotid arteries. LEFT: Duplex scan does not suggest hemodynamically significant stenosis of the left extracranial carotid arteries.
[2018-07-26] MEDS: Rosuvastatin Calcium 2.5 mg Tab PO SCH (21:45)
[2018-07-27] MEDS: (Novolin R) Insulin Human Regular 100 units/ml vial SC SCH ×4 (07:23→21:17)
[2018-07-27] MEDS: Divalproex 125 mg Sprinkle Capsule PO SCH ×2 (09:15→17:12)
--- NOTE | 2018-07-27 12:42 | CP.PCM.PN ---
Subjective - Date & Time of Evaluation Date of Evaluation: 07/27/18 Time of Evaluation: 12:41 - Subjective Subjective: CHIEF COMPLAINTS TODAY : NO FURTHER DIZZINESS VAGUE ABD PAIN ROS. HEENT : N. Resp : No cough, wheezing ,pleuritic CP ,or hemoptysis Cardio : No anginal CP, PND, orthopnea, palpitation GI : No n/v ,diarrhea or GI bleeding . 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 Musculoskel : No joint swelling , Derm : No rash Psych : Normal affect. Ext : No swelling ,calf pain PE. Pt. is alert awake in no distress. V.S As noted in the chart Head ,ear nose,throat and eyes : Normal. Neck : Supple with normal carotids. Lungs: Clear air entry. Heart : S1 & S2 normal with S4. No murmur. Abd : Soft non tender with normal bowel sounds. Neuro : Moves all ext. with R. LOWER WEAKNESS Ext : No edema with intact pulses.Non tender calves Derm : No rashes or decubitus ulcer. LABS/RADIOLOGY: CAROTID DOPPLER NORMAL ASSESSMENT/PLAN : EEG BEFORE DISCHARGE Objective - Vital Signs/Intake and Output Vital Signs (last 24 hours): Temp Pulse Resp BP Pulse Ox 97.9 F 102 H 20 131/74 98 07/27/18 07:00 07/27/18 07:15 07/27/18 07:00 07/27/18 07:00 07/27/18 07:15 - Medications Medications: Current Medications Dextrose (Dextrose 50% Inj) 0 ml IV STAT PRN; Protocol PRN Reason: Hypoglycemia Protocol Dextrose (Glutose 15) 0 gm PO ONCE PRN; Protocol PRN Reason: Hypoglycemia Protocol Divalproex Sodium (Depakote Sprinkles) 125 mg PO BID [facility] Last Admin: 07/27/18 09:15 Dose: 125 mg Donepezil HCl (Aricept) 10 mg PO HS [facility] Last Admin: 07/26/18 21:45 Dose: 10 mg Glucagon (Glucagen Diagnostic Kit) 0 mg IM STAT PRN; Protocol PRN Reason: Hypoglycemia Protocol Heparin Sodium (Porcine) (Heparin) 5,000 units SC Q12 [facility] Last Admin: 07/27/18 09:19 Dose: 5,000 units Dextrose (Dextrose 5% In Water 1000 Ml) 1,000 mls @ 0 mls/hr IV .Q0M PRN; Protocol PRN Reason: Hypoglycemia Protocol Sodium Chloride (Sodium Chloride 0.9%) 1,000 mls @ 80 mls/hr IV .[id number] [facility] Last Admin: 07/26/18 15:35 Dose: Not Given Insulin Human Regular (Novolin R) 0 unit SC ACHS [facility]; Protocol Last Admin: 07/27/18 12:23 Dose: 3 units Lactulose (Enulose) 20 gm PO HS [facility] Last Admin: 07/26/18 21:45 Dose: 20 gm Losartan Potassium (Cozaar) 25 mg PO DAILY [facility] Last Admin: 07/27/18 09:15 Dose: 25 mg Memantine (Namenda) 10 mg PO BID [facility] Last Admin: 07/27/18 09:15 Dose: 10 mg Propranolol HCl (Inderal) 10 mg PO BID [facility] Last Admin: 07/27/18 09:15 Dose: 10 mg Rosuvastatin Calcium (Crestor) 2.5 mg PO HS [facility] Last Admin: 07/26/18 21:45 Dose: 2.5 mg Tamsulosin HCl (Flomax) 0.4 mg PO DAILY [facility] Last Admin: 07/27/18 09:15 Dose: 0.4 mg - Labs Labs: 07/26/18 07:09 07/26/18 07:09 PT 10.4 SECONDS (9.7-12.2) 07/25/18 09:13 INR 1.0 07/25/18 09:13 APTT 26 SECONDS (21-34) 07/25/18 09:13
[2018-07-27] MEDS: Sodium Chloride 0.9% 1,000 ML IV SCH (16:30)
[2018-07-27] MEDS: Rosuvastatin Calcium 2.5 mg Tab PO SCH (21:17)
[2018-07-28] MEDS: (Novolin R) Insulin Human Regular 100 units/ml vial SC SCH ×4 (08:00→21:51)
[2018-07-28] MEDS: Divalproex 125 mg Sprinkle Capsule PO SCH ×2 (09:11→17:08)
[2018-07-28] MEDS: Sodium Chloride 0.9% 1,000 ML IV SCH (09:14)
--- NOTE | 2018-07-28 12:25 | CP.PCM.PN ---
Subjective - Date & Time of Evaluation Date of Evaluation: 07/28/18 Time of Evaluation: 12:25 - Subjective Subjective: CHIEF COMPLAINTS TODAY : NO FURTHER DIZZINESS VAGUE ABD PAIN ROS. HEENT : N. Resp : No cough, wheezing ,pleuritic CP ,or hemoptysis Cardio : No anginal CP, PND, orthopnea, palpitation GI : No n/v ,diarrhea or GI bleeding . MUSIC ADAPTER : No headache, vertigo, focal deficit. Musculoskel : No joint swelling , Derm : No rash Psych : Normal affect. Ext : No swelling ,calf pain PE. Pt. is alert awake in no distress. V.S As noted in the chart Head ,ear nose,throat and eyes : Normal. Neck : Supple with normal carotids. Lungs: Clear air entry. Heart : S1 & S2 normal with S4. No murmur. Abd : Soft non tender with normal bowel sounds. Neuro : Moves all ext. with R. LOWER WEAKNESS Ext : No edema with intact pulses.Non tender calves Derm : No rashes or decubitus ulcer. LABS/RADIOLOGY: CAROTID DOPPLER NORMAL ASSESSMENT/PLAN : EEG BEFORE DISCHARGE Objective - Vital Signs/Intake and Output Vital Signs (last 24 hours): Temp Pulse Resp BP Pulse Ox 97.6 F 84 18 138/72 100 07/28/18 08:00 07/28/18 08:25 07/28/18 08:00 07/28/18 08:00 07/28/18 08:00 - Medications Medications: Current Medications Dextrose (Dextrose 50% Inj) 0 ml IV STAT PRN; Protocol PRN Reason: Hypoglycemia Protocol Dextrose (Glutose 15) 0 gm PO ONCE PRN; Protocol PRN Reason: Hypoglycemia Protocol Divalproex Sodium (Depakote Sprinkles) 125 mg PO BID [facility] Last Admin: 07/28/18 09:11 Dose: 125 mg Donepezil HCl (Aricept) 10 mg PO HS [facility] Last Admin: 07/27/18 21:16 Dose: 10 mg Glucagon (Glucagen Diagnostic Kit) 0 mg IM STAT PRN; Protocol PRN Reason: Hypoglycemia Protocol Heparin Sodium (Porcine) (Heparin) 5,000 units SC Q12 [facility] Last Admin: 07/28/18 09:10 Dose: 5,000 units Dextrose (Dextrose 5% In Water 1000 Ml) 1,000 mls @ 0 mls/hr IV .Q0M PRN; Protocol PRN Reason: Hypoglycemia Protocol Sodium Chloride (Sodium Chloride 0.9%) 1,000 mls @ 80 mls/hr IV .[id number] [facility] Last Admin: 07/28/18 09:14 Dose: 80 mls/hr Insulin Human Regular (Novolin R) 0 unit SC ACHS [facility]; Protocol Last Admin: 07/28/18 08:00 Dose: 2 units Lactulose (Enulose) 20 gm PO HS [facility] Last Admin: 07/27/18 21:16 Dose: 20 gm Losartan Potassium (Cozaar) 25 mg PO DAILY [facility] Last Admin: 07/28/18 09:10 Dose: 25 mg Memantine (Namenda) 10 mg PO BID [facility] Last Admin: 07/28/18 09:10 Dose: 10 mg Propranolol HCl (Inderal) 10 mg PO BID [facility] Last Admin: 07/28/18 09:11 Dose: 10 mg Rosuvastatin Calcium (Crestor) 2.5 mg PO HS [facility] Last Admin: 07/27/18 21:17 Dose: 2.5 mg Tamsulosin HCl (Flomax) 0.4 mg PO DAILY [facility] Last Admin: 07/28/18 09:10 Dose: 0.4 mg - Labs Labs: 07/26/18 07:09 07/26/18 07:09 PT 10.4 SECONDS (9.7-12.2) 07/25/18 09:13 INR 1.0 07/25/18 09:13 APTT 26 SECONDS (21-34) 07/25/18 09:13
[2018-07-28] MEDS: Rosuvastatin Calcium 2.5 mg Tab PO SCH (21:50)
[2018-07-29] MEDS: (Novolin R) Insulin Human Regular 100 units/ml vial SC SCH ×4 (07:30→21:47)
[2018-07-29] MEDS: Divalproex 125 mg Sprinkle Capsule PO SCH ×2 (10:10→17:26)
--- NOTE | 2018-07-29 11:20 | CP.PCM.PN ---
Subjective - Date & Time of Evaluation Date of Evaluation: 07/29/18 Time of Evaluation: 11:20 - Subjective Subjective: CHIEF COMPLAINTS TODAY : NO FURTHER DIZZINESS ROS. HEENT : N. Resp : No cough, wheezing ,pleuritic CP ,or hemoptysis Cardio : No anginal CP, PND, orthopnea, palpitation GI : No n/v ,diarrhea or GI bleeding . 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 Musculoskel : No joint swelling , Derm : No rash Psych : Normal affect. Ext : No swelling ,calf pain PE. Pt. is alert awake in no distress. V.S As noted in the chart Head ,ear nose,throat and eyes : Normal. Neck : Supple with normal carotids. Lungs: Clear air entry. Heart : S1 & S2 normal with S4. No murmur. Abd : Soft non tender with normal bowel sounds. Neuro : Moves all ext. with R. LOWER WEAKNESS Ext : No edema with intact pulses.Non tender calves Derm : No rashes or decubitus ulcer. LABS/RADIOLOGY: CAROTID DOPPLER NORMAL ASSESSMENT/PLAN : EEG BEFORE DISCHARGE Objective - Vital Signs/Intake and Output Vital Signs (last 24 hours): Temp Pulse Resp BP Pulse Ox 97.9 F 100 H 18 144/78 99 07/29/18 07:02 07/29/18 08:14 07/29/18 07:02 07/29/18 07:02 07/29/18 07:02 Intake and Output: 07/28/18 07/29/18 23:59 11:59 Intake Total 1390 Output Total 800 200 Balance 590 -200 - Medications Medications: Current Medications Dextrose (Dextrose 50% Inj) 0 ml IV STAT PRN; Protocol PRN Reason: Hypoglycemia Protocol Dextrose (Glutose 15) 0 gm PO ONCE PRN; Protocol PRN Reason: Hypoglycemia Protocol Divalproex Sodium (Depakote Sprinkles) 125 mg PO BID [facility] Last Admin: 07/29/18 10:10 Dose: 125 mg Donepezil HCl (Aricept) 10 mg PO HS [facility] Last Admin: 07/28/18 21:50 Dose: 10 mg Glucagon (Glucagen Diagnostic Kit) 0 mg IM STAT PRN; Protocol PRN Reason: Hypoglycemia Protocol Insulin Human Regular (Novolin R) 0 unit SC ACHS [facility]; Protocol Last Admin: 07/29/18 07:30 Dose: Not Given Lactulose (Enulose) 20 gm PO HS [facility] Last Admin: 07/28/18 21:51 Dose: 20 gm Losartan Potassium (Cozaar) 25 mg PO DAILY [facility] Last Admin: 07/29/18 10:09 Dose: 25 mg Memantine (Namenda) 10 mg PO BID [facility] Last Admin: 07/29/18 10:09 Dose: 10 mg Propranolol HCl (Inderal) 10 mg PO BID [facility] Last Admin: 07/29/18 10:10 Dose: 10 mg Rosuvastatin Calcium (Crestor) 2.5 mg PO HS [facility] Last Admin: 07/28/18 21:50 Dose: 2.5 mg Tamsulosin HCl (Flomax) 0.4 mg PO DAILY [facility] Last Admin: 07/29/18 10:09 Dose: 0.4 mg - Labs Labs: 07/26/18 07:09 07/26/18 07:09 PT 10.4 SECONDS (9.7-12.2) 07/25/18 09:13 INR 1.0 07/25/18 09:13 APTT 26 SECONDS (21-34) 07/25/18 09:13
[2018-07-29 11:47] LABS: BASO % 0.6 % (0.0-2.0); EOS # 0.2 K/uL (0.0-0.7); EOS % 3.5 % (0.0-4.0); HEMOGLOBIN 9.8 g/dL (12.0-18.0); LYMPH # 1.8 K/uL (1.0-4.3); LYMPH % 26.2 % (20.0-40.0); MEAN CELL VOLUME 80.3 fL (80.0-94.0); MEAN CORPUSCULAR HEMOGLOBIN 25.4 pg (27.0-31.0); MEAN CORPUSCULAR HGB CONC 31.6 g/dL (33.0-37.0); MEAN PLATELET VOLUME 10.1 fL (7.2-11.7); MONO # 0.6 K/uL (0.0-0.8); MONO % 8.4 % (0.0-10.0); NEUT # 4.2 K/uL (1.8-7.0); NEUT % 61.3 % (50.0-75.0); RBC 3.85 Mil/uL (4.40-5.90); RED CELL DISTRIBUTION WIDTH 17.5 % (11.5-14.5); WHITE BLOOD COUNT 6.8 K/uL (4.8-10.8)
[2018-07-29 11:54] LABS: AMYLASE 115 U/L (30-110); BLOOD UREA NITROGEN 9 mg/dL (9-20); CALCIUM 8.6 mg/dl (8.6-10.4); GFR NON-AFRICAN AMERICAN > 60; LIPASE 379 U/L (23-300)
[2018-07-29] MEDS: Rosuvastatin Calcium 2.5 mg Tab PO SCH (21:37)
[2018-07-30 00:19] VITALS: RESP 20
[2018-07-30] MEDS: (Novolin R) Insulin Human Regular 100 units/ml vial SC SCH ×2 (07:55→12:38)
[2018-07-30 08:45] VITALS: BP 143/73; TEMP 98.1; O2SAT 95
[2018-07-30] MEDS: Divalproex 125 mg Sprinkle Capsule PO SCH (09:32)
--- NOTE | 2018-07-30 12:04 | CP.PCM.DIS ---
Provider - Provider Date of Admission: 07/28/18 14:18 Attending physician: Emile Cisneros MD Time Spent in preparation of Discharge (in minutes): 35 Hospital Course - Lab Results Lab Results: Most Recent Lab Values WBC 6.8 K/uL (4.8-10.8) 07/29/18 11:29 RBC 3.85 Mil/uL (4.40-5.90) L 07/29/18 11:29 Hgb 9.8 g/dL (12.0-18.0) L 07/29/18 11:29 Hct 30.9 % (35.0-51.0) L 07/29/18 11: MCV 80.3 fL (80.0-94.0) 07/29/18 11: MCH 25.4 pg (27.0-31.0) L 07/29/18 11: MCHC 31.6 g/dL (33.0-37.0) L 07/29/18 11: RDW 17.5 % (11.5-14.5) H 07/29/18 11: Plt Count 218 K/uL (130-400) 07/29/18 11: MPV 10.1 fL (7.2-11.7) 07/29/18 11: Neut % (Auto) 61.3 % (50.0-75.0) 07/29/18 11: Lymph % (Auto) 26.2 % (20.0-40.0) 07/29/18 11: [place] % (Auto) 8.4 % (0.0-10.0) 07/29/18 11: Eos % (Auto) 3.5 % (0.0-4.0) 07/29/18 11:29 Baso % (Auto) 0.6 % (0.0-2.0) 07/29/18 11: Neut # (Auto) 4.2 K/uL (1.8-7.0) 07/29/18 11: Lymph # (Auto) 1.8 K/uL (1.0-4.3) 07/29/18 11:29 [place] # (Auto) 0.6 K/uL (0.0-0.8) 07/29/18 11:29 Eos # (Auto) 0.2 K/uL (0.0-0.7) 07/29/18 11:29 Baso # (Auto) 0.0 K/uL (0.0-0.2) 07/29/18 11:29 PT 10.4 SECONDS (9.7-12.2) 07/25/18 09:13 INR 1.0 07/25/18 09:13 APTT 26 SECONDS (21-34) 07/25/18 09:13 Sodium 137 mmol/L (132-148) 07/29/18 11:29 Potassium 4.0 mmol/L (3.6-5.2) 07/29/18 11:29 Chloride 108 mmol/L (98-107) H 07/29/18 11:29 Carbon Dioxide 20 mmol/L (22-30) L 07/29/18 11:29 Anion Gap 12 (10-20) 07/29/18 11:29 BUN 9 mg/dL (9-20) 07/29/18 11:29 Creatinine 1.0 mg/dL (0.8-1.5) 07/29/18 11:29 Est GFR ( Amer) > 60 07/29/18 11:29 Est GFR (Non-Af Amer) > 60 07/29/18 11:29 POC Glucose (mg/dL) 138 mg/dL (65-110) H 07/30/18 06:09 Random Glucose 225 mg/dL (75-110) H 07/29/18 11:29 Calcium 8.6 mg/dl (8.6-10.4) 07/29/18 11:29 Total Bilirubin 0.3 mg/dL (0.2-1.3) 07/26/18 07:09 AST 18 U/L (17-59) 07/26/18 07:09 ALT 13 U/L (21-72) L 07/26/18 07:09 Alkaline Phosphatase 83 U/L (38-126) 07/26/18 07:09 Total Creatine Kinase 90 U/L (55-170) 07/25/18 09:13 CK-MB (Mass) 1.42 ng/mL (0.0-3.38) 07/25/18 09:13 Troponin I < 0.0120 ng/mL (0.00-0.120) 07/25/18 09:13 Total Protein 6.7 g/dL (6.3-8.3) 07/26/18 07:09 Albumin 3.5 g/dL (3.5-5.0) 07/26/18 07:09 Globulin 3.2 gm/dL (2.2-3.9) 07/26/18 07:09 Albumin/Globulin Ratio 1.1 (1.0-2.1) 07/26/18 07:09 Amylase 115 U/L (30-110) H D 07/29/18 11:29 Lipase 379 U/L (23-300) H 07/29/18 11:29 - Hospital Course Hospital Course: WHILE IN DAY CARE HAD NEAR SYNCOPAL EPISODE . NO LOC AND NO EXTERNAL INJURY WHILE IN ER C/O ABD .PAIN AND CT OF ABD WAS NEG PAST HIST. HAS H/O CVA WITH DYSARTHRIA AND COGNITIVE IMPAIREMENT . T2DM, HTN CAROTID DOPPLER NEG PT HAD NO FURTHER SYMPTOMS WAS D/SANTIAGO AND WILL GET EEG OUT PT Discharge Plan - Follow Up Plan Condition: FAIR Disposition: HOME/ ROUTINE
--- NOTE | 2018-07-30 15:19 | PCM.EEG ---
Electroencephalogram Report - Electroencephalogram Report Procedure Date: 07/26/18 Condition of Recording: Awake, Drowsy, Asleep Interpretation: This EEG was acquired using the 10/20 electrode system. All electrodes were referenced to A1 A2 and P1 P2 respectively. SPike detection software was used to interpret the study and was reviewed. With eyes closed, there was a well developed 10 hz rhythm that is reactive symmetric and attenuates with eye opening. Normal sleep was captured with bilaterally symmeric 12 hz sleep spindles, POSTS, and K complexes. There were no interictal discharges noted, no clinical or subclinical seizures noted. Impression: Normal awake and sleep EEG. Conclusion: Normal EEG (Awake, Drowsy, and Asleep)
[2018-07-30 16:33] VITALS: PULSE 78
== END 2018-07-30 16:47 | disposition home or self-care (01) | DRG 312 ==
LOC: C.ER 08:53 → C.6T 12:08 → OBSVTOIN 07-28 14:18
PROVIDERS: ADMIT Internal Medicine Cardiovascular Disease; ATTEND Internal Medicine Cardiovascular Disease
DX: R55 Syncope and collapse (principal); E11.9 Type 2 diabetes mellitus without complications; I10 Essential (primary) hypertension; D18.03 Hemangioma of intra-abdominal structures; K59.00 Constipation, unspecified; K80.20 Calculus of gallbladder without cholecystitis without obstruction; E78.5 Hyperlipidemia, unspecified; E78.00 Pure hypercholesterolemia, unspecified; M19.90 Unspecified osteoarthritis, unspecified site; I69.322 Dysarthria following cerebral infarction; Z87.440 Personal history of urinary (tract) infections; Z79.4 Long term (current) use of insulin